=== PATIENT | female | born 1960 | race Caucasian/White ===

== ENCOUNTER 2016-08-21 07:31 | Emergency (ER) | payer OTHER ==
[~2016-08-21] VITALS: Ht 165.1 cm; Wt 53.0 kg
[2016-08-21] VITALS (8 sets, daily range): BP systolic 91–139; BP diastolic 52–82; PULSE 99–111; RESP 18–20; TEMP 98.2; O2SAT 94–99
[~2016-08-21 07:31] MED LIST: PERC5TAB12 PO; Z.0.NO CURRENT MEDS; ZOFR4TAB3 SL
[2016-08-21] MEDS ORDERED: ANAS1TAB PO (07:45)
[2016-08-21] MEDS ORDERED: GABA100C4 PO (07:51)
[2016-08-21] MEDS ORDERED: CYMB30CA PO (07:51)
--- NOTE | 2016-08-21 07:59 | PD ---
HPI Chief Complaint: Fall Time Seen by Provider: 07:50 Travel History International Travel<30 days: No Contact w/Intl Traveler<30days: No Traveled to known affect area: No History of Present Illness HPI This is a 56-year-old female who has a history of breast cancer currently in remission on Arimidex who presents to the emergency department having woken up in the middle of the night and walked to the bathroom when she felt lightheaded and dizzy and noticed everything go black. She passed out and she hit the back of her head. Currently she is reporting a moderate severity headache, constant , worse with movement, with no associated chest pain or shortness of breath. She says she feels dizzy almost every morning and she attributes it to her medications. She says she usually gets nauseous in the morning and she sometimes feels lightheadedness and her has to help her balance. Her says she's had a very difficult time recovering from her surgery which was in the fall and then her long course of radiation. She denies any recent illness and denies any loss of her bowels or bladder at the time of her passing out. [facility] Past Medical History Hypertension: Yes Respiratory: Yes (DIAGNOSED WITH BRONCHITITSIN 12/30) Tetanus Vaccination: < 5 Years Influenza Vaccination: Yes ?: Unknown Menopausal: No Miscarriage: 0 Past Surgical History Cholecystectomy: Yes Hysterectomy: Yes Tonsillectomy: Yes Social History Alcohol Use: Yes (VERY RARE SOCIAL DRINK) Tobacco Use: No Substance Use: No Allergies-Medications (Allergen,Severity, Reaction): Coded Allergies: Codeine (Verified Allergy, Intermediate, Itching, 08/21/16) Erythromycin (Verified Allergy, Intermediate, Itching, 08/21/16) Penicillin (Verified Allergy, Intermediate, HIVES, 08/21/16) Epinephrine (Verified Allergy, Mild, Seizures, 08/21/16) Reported Meds & Prescriptions Reported Meds & Active Scripts Active Reported Cymbalta DR (Duloxetine HCl) 30 Mg Capdr 30 Mg PO DAILY Gabapentin 100 Mg Cap 300 Mg PO HS Anastrozole 1 Mg Tab 1 Mg PO DAILY Review of Systems Except as stated in HPI: all other systems reviewed are Neg Physical Exam Narrative GENERAL:Well appearing, no acute distress SKIN: HEAD: Hematoma on the posterior occiput with some dried blood. EYES: Pupils equal and round. No injection or drainage. ENT: Moist mucous membranes NECK: Trachea midline. Midline cervical spine tenderness. CARDIOVASCULAR: Regular rate and rhythm. No murmur appreciated. RESPIRATORY: Clear to auscultation. Breath sounds equal bilaterally. GASTROINTESTINAL: Abdomen soft, non-tender, nondistended. MUSCULOSKELETAL: No obvious deformities. NEUROLOGICAL: Awake and alert. No obvious cranial nerve deficits. Moving all extremities. PSYCHIATRIC: Appropriate mood and affect; insight and judgment normal. Data Data Last Documented VS Vital Signs Date Time Temp Pulse Resp B/P Pulse Ox O2 Delivery O2 Flow Rate FiO2 08/21/16 11:33 109 20 116/64 98 Room Air 08/21/16 07:34 98.2 Orders Complete Blood Count With Diff (08/21/16 07:56) Comprehensive Metabolic Panel (08/21/16 07:56) D-Dimer (08/21/16 07:56) Ct Brain W/O Iv Contrast(Rout) (08/21/16 ) Ct Cerv Spine W/O Contrast (08/21/16 ) Sodium Chlor 0.9% 1000 Ml Inj (Ns 1000 M (08/21/16 08:00) Electrocardiogram (08/21/16 ) Acetaminophen (Tylenol) (08/21/16 08:15) Lidocai-Epi 1%-1:100,000 Inj (Xylocaine- (08/21/16 09:27) Morphine Inj (Morphine Inj) (08/21/16 09:45) Sodium Chlor 0.9% 1000 Ml Inj (Ns 1000 M (08/21/16 10:00) Mri Brain W&W/O Contrast (08/21/16 ) Meclizine (Antivert) (08/21/16 13:00) Labs Laboratory Tests Test 08/21/16 08:00 White Blood Count 6.0 TH/MM3 Red Blood Count 3.54 MIL/MM3 Hemoglobin 13.3 GM/DL Hematocrit 38.1 % Mean Corpuscular Volume 107.7 FL Mean Corpuscular Hemoglobin 37.6 PG Mean Corpuscular Hemoglobin 34.9 % Concent Red Cell Distribution Width 16.8 % Platelet Count 215 TH/MM3 Mean Platelet Volume 7.2 FL Neutrophils (%) (Auto) 62.0 % Lymphocytes (%) (Auto) 23.1 % Monocytes (%) (Auto) 11.9 % Eosinophils (%) (Auto) 2.0 % Basophils (%) (Auto) 1.0 % Neutrophils # (Auto) 3.7 TH/MM3 Lymphocytes # (Auto) 1.4 TH/MM3 Monocytes # (Auto) 0.7 TH/MM3 Eosinophils # (Auto) 0.1 TH/MM3 Basophils # (Auto) 0.1 TH/MM3 CBC Comment DIFF FINAL Differential Comment D-Dimer Quantitative (PE/DVT) 0.36 MG/L FEU Sodium Level 139 MEQ/L Potassium Level 3.7 MEQ/L Chloride Level 98 MEQ/L Carbon Dioxide Level 27.6 MEQ/L Anion Gap 13 MEQ/L Blood Urea Nitrogen 9 MG/DL Creatinine 0.64 MG/DL Estimat Glomerular Filtration 97 ML/MIN Rate Random Glucose 82 MG/DL Calcium Level 8.9 MG/DL Total Bilirubin 0.5 MG/DL Aspartate Amino Transf 103 U/L (AST/SGOT) Alanine Aminotransferase 30 U/L (ALT/SGPT) Alkaline Phosphatase 113 U/L Total Protein 7.5 GM/DL Albumin 4.0 GM/DL MDM Medical Decision Making Medical Screen Exam Complete: Yes Emergency Medical Condition: Yes Interpretation(s) afebrile, tachycardic, normotensive no leukocytosis electrolytes within normal limits d-dimer negative mri brain is normal ct head: no acute process Differential Diagnosis Subdural hematoma, subarachnoid hemorrhage, tumor, vertigo, concussion Narrative Course This is a 56-year-old female who presents to the emergency department having passed out and had a fall this morning when she woke up from sleep. She does have a history of breast cancer currently in remission. She was placed on a monitor and an IV was established. Labs were obtained which were reassuring. EKG is unremarkable. CT was negative for intracranial hemorrhage. Patient did have a scalp laceration that was repaired by the nurse practitioner. She was given 2 L of IV fluid as she appeared dehydrated and did lose some blood from her scalp laceration. I reevaluated the patient and noted that she had some horizontal nystagmus which I hadn't appreciated earlier and she said she was feeling very dizzy. In the setting of this I offered the family observation in the hospital to have a more rigorous syncope evaluation, but they declined. I did say wanted to get an MRI to rule out brain metastases which they were amenable to. MRI was reassuring. I suspect the patient's etiology of vertigo is peripheral in nature and could be related to her concussion. I think patient is safe for discharge to follow up with her oncologist. Diagnosis Primary Impression: Concussion Qualified Code: S06.0X9A - Concussion, with LOC of unspecified duration, initial encounter Additional Impression: Scalp laceration Qualified Code: S01.01XA - Scalp laceration, initial encounter Patient Instructions: General Instructions Additional Instructions: If you develop fevers, redness, swelling, or discharge from your wound return to the emergency room. Keep your wound dry for 24 hours. After that time, wash gently with warm soap and water. Do not use peroxide. Do not soak in baths or go swimming. Have your sutures removed in 5-7 days. Med/Other Pt SpecificInfo: No Change to Meds Disposition: 01 DISCHARGE HOME Condition: Stable Bonnie Almanza MD August 21, 2016 07:59
[2016-08-21] MEDS ORDERED: SODIUM CHLOR 0.9% 1000 ML INJ 1,000 ML IV ONE (08:00)
[2016-08-21 08:12] LABS: AUTOMATED NEUTROPHIL # 3.7 TH/MM3 (1.8-7.7); BASOPHIL # 0.1 TH/MM3 (0-0.2); EOSINOPHIL # 0.1 TH/MM3 (0-0.4); HEMATOCRIT 38.1 % (35.0-46.0); HEMO FLAGS DIFF FINAL; LYMPH % 23.1 % (9.0-44.0); LYMPHOCYTE # 1.4 TH/MM3 (1.0-4.8); MEAN CELL VOLUME 107.7 FL (80.0-100.0); MEAN CORPUSCULAR HEMOGLOBIN 37.6 PG (27.0-34.0); MEAN CORPUSCULAR HGB CONC 34.9 % (32.0-36.0); MONO % 11.9 % (0.0-8.0); PLATELET COUNT 215 TH/MM3 (150-450); RED BLOOD COUNT 3.54 MIL/MM3 (4.00-5.30); RED CELL DISTRIBUTION WIDTH 16.8 % (11.6-17.2)
[2016-08-21] MEDS ORDERED: ACETAMINOPHEN 500 MG CPLT PO ONE (08:15)
[2016-08-21 08:34] LABS: ALT (GPT) 30 U/L (10-53); ANION GAP 13 MEQ/L (5-15); AST (GOT) 103 U/L (15-37); BICARBONATE 27.6 MEQ/L (21.0-32.0); BLOOD UREA NITROGEN 9 MG/DL (7-18); CHLORIDE 98 MEQ/L (98-107); GLOMERULAR FILTRATION RATE 97 ML/MIN (>89); POTASSIUM 3.7 MEQ/L (3.5-5.1); SODIUM (NA) 139 MEQ/L (136-145)
[2016-08-21 08:36] LABS: ALKALINE PHOSPHATASE 113 U/L (45-117); TOTAL BILIRUBIN ADULT 0.5 MG/DL (0.2-1.0)
--- NOTE | 2016-08-21 08:48 | RADRPT ---
EXAM DATE/TIME: 08/21/2016 08:35 [facility] COMPARISON: No previous studies available for comparison. INDICATIONS : Fall backwards last night, cephalgia and neck pain. RADIATION DOSE: 26.92 CTDIvol (mGy) MEDICAL HISTORY : Carcinoma, breast. Hypertension. SURGICAL HISTORY : Hysterectomy. Tonsillectomy. ENCOUNTER: Initial ACUITY: 1 day PAIN SCALE: 7/10 LOCATION: Bilateral occipital head TECHNIQUE: Multiple contiguous axial images were obtained of the head. Using automated exposure control and adj ustment of the mA and/or kV according to patient size, radiation dose was kept as low as reasonably a chievable to obtain optimal diagnostic quality images. FINDINGS: CEREBRUM: There is moderate generalized atrophy. Ventricles are normal in size. No evidence of midline shift, mass lesion, hemorrhage or acute infarction. No extra-axial fluid collections are seen. POSTERIOR FOSSA: The cerebellum and brainstem are intact. The 4th ventricle is midline. The cerebellopontine angle i s unremarkable. EXTRACRANIAL: There is a left posterior parietal region scalp hematoma at the high convexity. SKULL: The calvaria is intact. No evidence of skull fracture. CONCLUSION: There is a left posterior scalp hematoma. No fracture or acute intracranial abnormality is identified . Daniel Garcia MD on August 21, 2016 at 8:44 Board Certified Radiologist. This report was verified electronically.
--- NOTE | 2016-08-21 08:56 | RADRPT ---
EXAM DATE/TIME: 08/21/2016 08:35 [facility] COMPARISON: No previous studies available for comparison. INDICATIONS : Fall backwards last night, cephalgia and neck pain. RADIATION DOSE: 9.20 CTDIvol (mGy) MEDICAL HISTORY : Carcinoma, breast. Hypertension. SURGICAL HISTORY : Hysterectomy. Tonsillectomy. ENCOUNTER: Initial ACUITY: 1 day PAIN SCALE: 7/10 LOCATION: Bilateral neck TECHNIQUE: Volumetric scanning of the cervical spine was performed. Multiplanar reconstructions in the sagittal, coronal and oblique axial planes were performed. Using automated exposure control and adjustment o f the mA and/or kV according to patient size, radiation dose was kept as low as reasonably achievable to obtain optimal diagnostic quality images. FINDINGS: There is normal sagittal spine alignment of the cervical spine. No anterolisthesis or retrolisthesis is present. The atlantoaxial relationship is within normal limits. There is no prevertebral soft tiss ue swelling present. No fracture or dislocation is identified. There is marked cervical kyphosis. Deg enerative disc disease is present at C5-C6 and C6-C7 with decreased disc height and endplate osteophy blaire anteriorly. The visualized portions of the posterior fossa, paraspinous soft tissues, and upper lung zones demons trate no acute abnormality. CONCLUSION: 1. No acute cervical spine abnormality is identified. 2. Accentuated cervical kyphosis with degenerative disc disease at C5-C6 and C6-C7. Daniel Garcia MD on August 21, 2016 at 8:51 Board Certified Radiologist. This report was verified electronically.
[2016-08-21] MEDS ORDERED: LIDOCAINE 1%/EPINEPHrine 1:100,000 SOLN 50 ML VIAL ONE (09:27)
[2016-08-21] MEDS ORDERED: MORPHINE SULFATE 4 MG/ML INJ IV PUSH ONE (09:45)
--- NOTE | 2016-08-21 09:48 | PD ---
Physical Exam Time Seen by Provider: 10:19 Narrative I repaired the laceration to the posterior scalp. Data Data Last Documented VS Vital Signs Date Time Temp Pulse Resp B/P Pulse Ox O2 Delivery O2 Flow Rate FiO2 08/21/16 10:11 106 97/52 99 Room Air 08/21/16 07:58 20 08/21/16 07:34 98.2 Orders Complete Blood Count With Diff (08/21/16 07:56) Comprehensive Metabolic Panel (08/21/16 07:56) D-Dimer (08/21/16 07:56) Ct Brain W/O Iv Contrast(Rout) (08/21/16 ) Ct Cerv Spine W/O Contrast (08/21/16 ) Sodium Chlor 0.9% 1000 Ml Inj (Ns 1000 M (08/21/16 08:00) Electrocardiogram (08/21/16 ) Acetaminophen (Tylenol) (08/21/16 08:15) Lidocai-Epi 1%-1:100,000 Inj (Xylocaine- (08/21/16 09:27) Morphine Inj (Morphine Inj) (08/21/16 09:45) Sodium Chlor 0.9% 1000 Ml Inj (Ns 1000 M (08/21/16 10:00) Labs Laboratory Tests Test 08/21/16 08:00 White Blood Count 6.0 TH/MM3 Red Blood Count 3.54 MIL/MM3 Hemoglobin 13.3 GM/DL Hematocrit 38.1 % Mean Corpuscular Volume 107.7 FL Mean Corpuscular Hemoglobin 37.6 PG Mean Corpuscular Hemoglobin 34.9 % Concent Red Cell Distribution Width 16.8 % Platelet Count 215 TH/MM3 Mean Platelet Volume 7.2 FL Neutrophils (%) (Auto) 62.0 % Lymphocytes (%) (Auto) 23.1 % Monocytes (%) (Auto) 11.9 % Eosinophils (%) (Auto) 2.0 % Basophils (%) (Auto) 1.0 % Neutrophils # (Auto) 3.7 TH/MM3 Lymphocytes # (Auto) 1.4 TH/MM3 Monocytes # (Auto) 0.7 TH/MM3 Eosinophils # (Auto) 0.1 TH/MM3 Basophils # (Auto) 0.1 TH/MM3 CBC Comment DIFF FINAL Differential Comment D-Dimer Quantitative (PE/DVT) 0.36 MG/L FEU Sodium Level 139 MEQ/L Potassium Level 3.7 MEQ/L Chloride Level 98 MEQ/L Carbon Dioxide Level 27.6 MEQ/L Anion Gap 13 MEQ/L Blood Urea Nitrogen 9 MG/DL Creatinine 0.64 MG/DL Estimat Glomerular Filtration 97 ML/MIN Rate Random Glucose 82 MG/DL Calcium Level 8.9 MG/DL Total Bilirubin 0.5 MG/DL Aspartate Amino Transf 103 U/L (AST/SGOT) Alanine Aminotransferase 30 U/L (ALT/SGPT) Alkaline Phosphatase 113 U/L Total Protein 7.5 GM/DL Albumin 4.0 GM/DL [facility] Supervised Visit with REINA: Yes Narrative Course I repaired the laceration to the posterior scalp. See my procedure note for laceration repair. Procedures Procedure Narrative LACERATION LOCATION: Left, mid posterior scalp LENGTH: 2.5 cm NUMBER OF STITCHES/AYALA: 7 sutures REPAIR: The area of the laceration was prepped with Betadine and sterilely draped. The laceration was infiltrated with 1% lidocaine with epinephrine. The wound was copiously irrigated and explored without evidence of foreign body, tendon injury or neurovascular injury. The wound was closed using 4-0 Prolene. This was a single layer repair. A sterile dressing was applied. The patient was advised to keep the dressing clean and dry. Patient tolerated the procedure well. Idalia Panda August 21, 2016 09:48
[2016-08-21] MEDS ORDERED: SODIUM CHLOR 0.9% 1000 ML INJ 1,000 ML IV SCH (10:00)
[2016-08-21] MEDS ORDERED: GADODIAMIDE PF 287 MG/ML 10 ML VIAL (for RAD MRI) IV ONE (12:12)
--- NOTE | 2016-08-21 12:47 | RADRPT ---
EXAM DATE/TIME: 08/21/2016 12:12 [facility] COMPARISON: CT BRAIN W/O CONTRAST, August 21, 2016, 8:35. INDICATIONS : Metastatic disease. Dizziness, fall, head trauma. CONTRAST: 10 cc Omniscan (gadodiamide) IV MEDICAL HISTORY : Carcinoma, breast. SURGICAL HISTORY : Hysterectomy. Cholecystectomy. Breast lumpectomy. ENCOUNTER: Initial ACUITY: 1 day PAIN SCORE: 0/10 LOCATION: cranial TECHNIQUE: Multiplanar, multisequence MRI of the brain was performed both prior to and following the administrat ion of paramagnetic contrast. FINDINGS: CEREBRUM: There is mild cerebral atrophy. Ventricles are normal in size. No evidence of midline shift, mass le gulshan, hemorrhage or acute infarction. No extraaxial fluid collections are seen. The pituitary gland and suprasellar cistern are normal in configuration. WHITE MATTER: No significant signal abnormalities are seen in the white matter. POSTERIOR FOSSA: The cerebellum and brainstem demonstrate no acute finding. The 4th ventricle is midline. The cerebel lopontine angle is unremarkable. The cerebellar tonsils are normal in position. DIFFUSION IMAGING: No focal areas of restricted diffusion are seen. No evidence of acute infarction. EXTRACRANIAL: There is a stable left posterior scalp hematoma. Otherwise, the visualized portions of the orbits and paranasal sinuses are unremarkable. POST-CONTRAST: No abnormal areas of parenchymal or dural enhancement. No evidence of blood-brain barrier breakdown. CONCLUSION: 1. There are no findings to indicate metastatic disease. No acute intracranial abnormality is seen. 2. There is a left posterior scalp hematoma. Daniel Garcia MD on August 21, 2016 at 12:42 Board Certified Radiologist. This report was verified electronically.
[2016-08-21] MEDS ORDERED: MECLIZINE HCL 25 MG TAB PO ONE (13:00)
[2016-08-21] MEDS ORDERED: MECL-62 PO (13:08)
[2016-08-21] MEDS ORDERED: NAPR500T PO (13:08)
[2016-08-21] MEDS ORDERED: NAPROXEN 500 MG TAB PO ONE (13:15)
--- NOTE | 2016-08-21 15:02 | EKG ---
Date Performed: 08/21/2016 Time Performed: 08:01:56 PTAGE: 56 years EKG: Sinus rhythm NORMAL ECG NO PREVIOUS TRACING DOCTOR: Rigo De La Cruz Interpretating Date/Time 08/21/2016 15:00:10
== END 2016-08-21 13:59 | disposition home or self-care (01) ==
LOC: NEPC 07:31
DX: S06.0X9A Concussion with loss of consciousness of unspecified duration, initial encounter (principal); S01.01XA Laceration without foreign body of scalp, initial encounter; I10 Essential (primary) hypertension; X58.XXXA Exposure to other specified factors, initial encounter; Y93.01 Activity, walking, marching and hiking; Y92.002 Bathroom of unspecified non-institutional (private) residence as the place of occurrence of the external cause; Z85.3 Personal history of malignant neoplasm of breast
CPT/HCPCS: 12001; 70450; 70553; 72125; 80053; 85025; 85379; 93005; 96361; 96374; 99285; A9579; J2270; J7030

== ENCOUNTER 2017-04-27 11:37 | Observation (INO) | payer OTHER ==
[2017-04-27] VITALS (7 sets, daily range): BP systolic 116–140; BP diastolic 67–79; PULSE 92–101; RESP 14–18; TEMP 98.6–100; O2SAT 96–100
[~2017-04-27] VITALS: Ht 157.5 cm; Wt 48.0 kg
[~2017-04-27 11:37] MED LIST changes: +ANAS1TAB PO; +CYMB30CA PO; +GABA100C4 PO; +MECL-62 PO; +NAPR500T2 PO; -PERC5TAB12 PO; -Z.0.NO CURRENT MEDS; -ZOFR4TAB3 SL
[2017-04-27] MEDS ORDERED: SODIUM CHLOR 0.9% 1000 ML INJ 1,000 ML IV ONE (12:08)
[2017-04-27] MEDS ORDERED: SOD PHOSPHATE/SOD BIPHOSPHATE (ADULT) ENEMA 133ML RECTAL ONE (12:15)
[2017-04-27] MEDS ORDERED: ONDANSETRON HCL 4 MG/2 ML VIAL IV PUSH ONE (12:15)
[2017-04-27] MEDS ORDERED: SODIUM CHLORIDE 0.9% FLUSH 10 ML FLUSH IVF PRN (12:15)
[2017-04-27] MEDS ORDERED: PANTOPRAZOLE SODIUM 40 MG VIAL IV PUSH ONE (12:15)
--- NOTE | 2017-04-27 12:18 | PD ---
HPI Chief Complaint: GI Complaint Time Seen by Provider: 12:08 Travel History International Travel<30 days: No Contact w/Intl Traveler<30days: No Traveled to known affect area: No History of Present Illness HPI 57-year-old female with a history of breast cancer presents emergency department complaining of hematemesis that started this morning. States that she went to her primary care office Dr. Dawson where he gave her Phenergan and tested for flu which was negative. States that she felt nauseous yesterday and had trouble tolerating any foods. Says she took stool softeners and laxative without resolution. She took magnesium citrate, vomited then started seeing some bloody mucus. States her last bowel movement was 9 days ago which is unusual for her. States that she has had an episode of constipation previously but usually resolved in 4-5 days. States that she did have 2 ' pellet balls' yesterday but did not feel she completely emptied her bowels. States she does take narcotic pain medications. States she is currently taking Arimidex and has had 37 treatments of radiation and chemo for her breast cancer. She follows Dr. Garrett for her oncology. States she does have right breast pain but this is not new for her. Denies shortness of breath or abdominal pain. Denies leg pain. She is unsure but she believes she takes ibuprofen 800mg daily for pain. Says that she has tried to cut down on her alcohol intake and drinks approximately 1-2 glasses every other day. PFSH Past Medical History Hypertension: Yes Respiratory: Yes (DIAGNOSED WITH BRONCHITITSIN 12/30) Menopausal: No Miscarriage: 0 Past Surgical History Cholecystectomy: Yes Hysterectomy: Yes Tonsillectomy: Yes Social History Alcohol Use: Yes (VERY RARE SOCIAL DRINK) Tobacco Use: No Substance Use: No Allergies-Medications (Allergen,Severity, Reaction): Coded Allergies: codeine (Unverified Allergy, Intermediate, Itching, 04/27/17) erythromycin base (Unverified Allergy, Intermediate, Itching, 04/27/17) penicillin G (Unverified Allergy, Intermediate, HIVES, 04/27/17) epinephrine (Unverified Allergy, Mild, Seizures, 04/27/17) Reported Meds & Prescriptions Reported Meds & Active Scripts Active Reported Gabapentin 100 Mg Cap 300 Mg PO HS Anastrozole 1 Mg Tab 1 Mg PO DAILY Review of Systems Except as stated in HPI: all other systems reviewed are Neg Physical Exam Narrative GENERAL: Well-developed well-nourished in no apparent distress, sitting comfortably on the edge of the bed SKIN: Warm and dry. No rashes or lesions HEAD: Atraumatic. Normocephalic. EYES: Pupils equal and round. No scleral icterus. No injection or drainage. ENT: No nasal bleeding or discharge. Mucous membranes pink and moist. NECK: Trachea midline. No JVD. No lymphadenopathy CARDIOVASCULAR: Regular rate and rhythm. RESPIRATORY: No accessory muscle use. Clear to auscultation. Breath sounds equal bilaterally. GASTROINTESTINAL: Abdomen soft, mildly tender diffusely, nondistended. Hepatic and splenic margins not palpable. Normoactive bowel sounds MUSCULOSKELETAL: Extremities without clubbing, cyanosis, or edema. No obvious deformities. No CVA tenderness NEUROLOGICAL: Awake and alert. No obvious cranial nerve deficits. Motor grossly within normal limits. Five out of 5 muscle strength in the arms and legs. Normal speech. PSYCHIATRIC: Appropriate mood and affect; insight and judgment normal. Data Data Last Documented VS Vital Signs Date Time Temp Pulse Resp B/P (MAP) Pulse Ox O2 Delivery O2 Flow Rate FiO2 04/27/17 12:41 94 18 125/74 (91) 100 Room Air 04/27/17 11:39 98.6 Orders Orders Complete Blood Count With Diff (04/27/17 12:08) Comprehensive Metabolic Panel (04/27/17 12:08) Urinalysis - C+S If Indicated (04/27/17 12:08) Lipase (04/27/17 12:08) Iv Access Insert/Monitor (04/27/17 12:08) Ecg Monitoring (04/27/17 12:08) Oximetry (04/27/17 12:08) Ondansetron Inj (Zofran Inj) (04/27/17 12:15) Sodium Chlor 0.9% 1000 Ml Inj (Ns 1000 M (04/27/17 12:08) Sodium Chloride 0.9% Flush (Ns Flush) (04/27/17 12:15) Chest, Single Ap (04/27/17 12:08) Pantoprazole Inj (Protonix Inj) (04/27/17 12:15) Fleets Enema (Adult) (Fleets Enema (Adul (04/27/17 12:15) Urine Culture (04/27/17 12:25) Oral Rehydration (04/27/17 14:08) Ceftriaxone Inj (Rocephin Inj) (04/27/17 14:45) Admit Order (Ed Use Only) (04/27/17 14:37) Labs Laboratory Tests Test 04/27/17 12:25 04/27/17 12:35 Urine Color YELLOW Urine Turbidity HAZY Urine pH 6.0 Urine Specific [place] 1.024 Urine Protein 100 mg/dL Urine Glucose (UA) NEG mg/dL Urine Ketones 150 mg/dL Urine Occult Blood LARGE Urine Nitrite NEG Urine Bilirubin NEG Urine Urobilinogen LESS THAN 2.0 MG/DL Urine Leukocyte Esterase MOD Urine RBC 76 /hpf Urine WBC 10 /hpf Urine Squamous Epithelial Cells 2 /hpf Urine Transitional Epithelial Cells <1 /hpf Urine Hyaline Casts 4 /lpf Urine Mucus FEW /lpf Microscopic Urinalysis Comment CULTURE INDICATED Urine Opiates Screen NEG Urine Barbiturates Screen NEG Urine Amphetamines Screen NEG Urine Benzodiazepines Screen NEG Urine Cocaine Screen NEG Urine Cannabinoids Screen NEG White Blood Count 5.3 TH/MM3 Red Blood Count 3.72 MIL/MM3 Hemoglobin 14.0 GM/DL Hematocrit 39.7 % Mean Corpuscular Volume 106.7 FL Mean Corpuscular Hemoglobin 37.6 PG Mean Corpuscular Hemoglobin Concent 35.2 % Red Cell Distribution Width 15.4 % Platelet Count 189 TH/MM3 Mean Platelet Volume 7.7 FL Neutrophils (%) (Auto) 70.6 % Lymphocytes (%) (Auto) 16.3 % Monocytes (%) (Auto) 10.6 % Eosinophils (%) (Auto) 0.3 % Basophils (%) (Auto) 2.2 % Neutrophils # (Auto) 3.8 TH/MM3 Lymphocytes # (Auto) 0.9 TH/MM3 Monocytes # (Auto) 0.6 TH/MM3 Eosinophils # (Auto) 0.0 TH/MM3 Basophils # (Auto) 0.1 TH/MM3 CBC Comment DIFF FINAL Differential Comment Blood Urea Nitrogen 13 MG/DL Creatinine 0.62 MG/DL Random Glucose 67 MG/DL Total Protein 7.4 GM/DL Albumin 3.5 GM/DL Calcium Level 8.9 MG/DL Alkaline Phosphatase 189 U/L Aspartate Amino Transf (AST/SGOT) 418 U/L Alanine Aminotransferase (ALT/SGPT) 109 U/L Total Bilirubin 1.0 MG/DL Sodium Level 137 MEQ/L Potassium Level 3.9 MEQ/L Chloride Level 95 MEQ/L Carbon Dioxide Level 21.7 MEQ/L Anion Gap 20 MEQ/L Estimat Glomerular Filtration Rate 100 ML/MIN Magnesium Level 1.7 MG/DL Lipase 139 U/L Ethyl Alcohol Level 94 MG/DL MDM Medical Decision Making Medical Screen Exam Complete: Yes Emergency Medical Condition: Yes Differential Diagnosis Hematemesis, constipation, nausea Narrative Course 57-year-old female with a history of breast cancer presents emergency department complaining of hematemesis that started this morning. States that she went to her primary care office Dr. Dawson where he gave her Phenergan and tested for flu which was negative. States that she felt nauseous yesterday and had trouble tolerating any foods. Says she took stool softeners and laxative without resolution. She took magnesium citrate, vomited then started seeing some bloody tinged mucus. States her last bowel movement was 9 days ago which is unusual for her. States that she has had an episode of constipation previously but usually resolved in 4-5 days. States that she did have 2 ' pellet balls' yesterday but did not feel she completely emptied her bowels. States she does take narcotic pain medications. States she is currently taking Arimidex and has had 37 treatments of radiation and chemo for her breast cancer. She follows Dr. Garrett for her oncology. States she does have right breast pain but this is not new for her. Denies shortness of breath or abdominal pain. Denies leg pain. She is unsure but she believes she takes ibuprofen 800mg daily for pain. Says that she has tried to cut down on her alcohol intake and drinks approximately 1-2 glasses of wine every other day. Protonix 40mg, 1L NS IVF, Zofran administered in the ED. Enema performed by pt- minimal stool expressed. Again, patient took over the counter laxatives and stool softeners without resolution. States she continues to be nauseous despite interventions. Elevated LFTs- questionable alcohol history. CBC & BMP Diagram 04/27/17 12:35 Total Protein 7.4, Albumin 3.5, Calcium Level 8.9, Alkaline Phosphatase 189 H, Aspartate Amino Transf (AST/SGOT) 418 H, Alanine Aminotransferase (ALT/SGPT) 109 H, Total Bilirubin 1.0 Last Impressions Chest X-Ray 04/27/17 1208 Signed Impressions: Service Date/Time: April 12:18 - CONCLUSION: No acute abnormality is seen. Daniel Mcmanus MD Rocephin 1g administered for UTI. Pt will be administered for intractable nausea with vomiting, consider Laura Randall tear, constipation, UTI. Diagnosis Primary Impression: Constipation due to pain medication Additional Impressions: UTI (urinary tract infection) Qualified Codes: N30.00 - Acute cystitis without hematuria Hematemesis Qualified Codes: K92.0 - Hematemesis Nausea & vomiting Qualified Codes: R11.2 - Nausea with vomiting, unspecified Admitting Information Admitting Physician Requests: Observation Referrals: Primary Care Physician Condition: Stable Yaima Freeman Apr 27, 2017 12:18
[2017-04-27 13:05] LABS: AUTOMATED NEUTROPHIL # 3.8 TH/MM3 (1.8-7.7); BASOPHIL # 0.1 TH/MM3 (0-0.2); BASOPHIL % 2.2 % (0.0-2.0); EOSINOPHIL % 0.3 % (0.0-4.0); HEMATOCRIT 39.7 % (35.0-46.0); LYMPH % 16.3 % (9.0-44.0); LYMPHOCYTE # 0.9 TH/MM3 (1.0-4.8); MEAN CELL VOLUME 106.7 FL (80.0-100.0); MEAN CORPUSCULAR HEMOGLOBIN 37.6 PG (27.0-34.0); MEAN CORPUSCULAR HGB CONC 35.2 % (32.0-36.0); MEAN PLATELET VOLUME 7.7 FL (7.0-11.0); MONO % 10.6 % (0.0-8.0); MONOCYTE # 0.6 TH/MM3 (0-0.9); NEUT % 70.6 % (16.0-70.0); PLATELET COUNT 189 TH/MM3 (150-450); RED BLOOD COUNT 3.72 MIL/MM3 (4.00-5.30); RED CELL DISTRIBUTION WIDTH 15.4 % (11.6-17.2); WHITE BLOOD COUNT 5.3 TH/MM3 (4.0-11.0)
--- NOTE | 2017-04-27 13:09 | RADRPT ---
EXAM DATE/TIME: 04/27/2017 12:18 [facility] COMPARISON: No previous studies available for comparison. INDICATIONS : Vomiting blood, no bowel movement x9 days, generalized abdomen pain. MEDICAL HISTORY : Carcinoma, breast. SURGICAL HISTORY : Right breast lumpectomy. ENCOUNTER: Initial ACUITY: 1 week PAIN SCORE: 9/10 LOCATION: Bilateral chest FINDINGS: A single view of the chest demonstrates the lungs to be symmetrically aerated without evidence of mas s, infiltrate or effusion. The cardiomediastinal contours are unremarkable. Osseous structures are intact. Clips are seen over the lower right chest and in the right upper quadrant the abdomen. There is postoperative soft tissue changes seen in the right chest. The patient has had a prior right lumpe ctomy. CONCLUSION: No acute abnormality is seen. Daniel Mcmanus MD on April 27, 2017 at 13:05 Board Certified Radiologist. This report was verified electronically.
[2017-04-27 13:15] LABS: BILIRUBIN, URINE NEG (NEG); BLOOD, URINE LARGE (NEG); GLUCOSE,URINE NEG (NEG); HYALINE CAST, URINE 4 /lpf (RARE); KETONE, URINE 150 mg/dL (NEG); MUCUS URINE FEW /lpf (OCC); NITRITE,URINE NEG (NEG); SQUAMOUS EPITHELIAL CELL URINE 2 /hpf (0-5); TRANSITIONAL EPI CELLS, URINE <1 /hpf; URINE COLOR YELLOW (YELLW/STRAW); URINE LEUKOCYTE ESTERASE MOD (NEG)
[2017-04-27 13:29] LABS: ALBUMIN 3.5 GM/DL (3.4-5.0); AST (GOT) 418 U/L (15-37); BICARBONATE 21.7 MEQ/L (21.0-32.0); BLOOD UREA NITROGEN 13 MG/DL (7-18); CALCIUM 8.9 MG/DL (8.5-10.1); CHLORIDE 95 MEQ/L (98-107); CREATININE 0.62 MG/DL (0.50-1.00); GLOMERULAR FILTRATION RATE 100 ML/MIN (>89); GLUCOSE,RANDOM 67 MG/DL (74-106); SODIUM (NA) 137 MEQ/L (136-145)
[2017-04-27 13:33] LABS: ALKALINE PHOSPHATASE 189 U/L (45-117); ALT (GPT) 109 U/L (10-53); TOTAL PROTEIN 7.4 GM/DL (6.4-8.2)
[2017-04-27] MEDS ORDERED: PROT40TA PO (14:16)
[2017-04-27] MEDS ORDERED: MACR100C2 PO (14:16)
[2017-04-27] MEDS ORDERED: ZOFR4TAB3 SL (14:16)
[2017-04-27] MEDS ORDERED: MAGNESIUM HYDROXIDE SUSP 30 ML CUP PO PRN (14:45)
[2017-04-27] MEDS ORDERED: LACTULOSE SYRUP 20 GM/30 ML CUP PO PRN (14:45)
[2017-04-27] MEDS ORDERED: BISACODYL 10 MG SUPP RECTAL PRN (14:45)
[2017-04-27] MEDS ORDERED: ACETAMINOPHEN 325 MG TAB PO PRN (14:45)
[2017-04-27] MEDS ORDERED: ONDANSETRON HCL 4 MG/2 ML VIAL IVP PRN (14:45)
[2017-04-27] MEDS ORDERED: HALOPERIDOL LACTATE 5 MG/ML AMP IM PRN (14:45)
[2017-04-27] MEDS ORDERED: LORazepam 2 MG TAB PO PRN (14:45)
[2017-04-27] MEDS ORDERED: TEMAZEPAM 15 MG CAP PO PRN (14:45)
[2017-04-27] MEDS ORDERED: SODIUM CHLORIDE 0.9% FLUSH 10 ML FLUSH IV FLUSH PRN (14:45)
[2017-04-27] MEDS ORDERED: FLUMAZENIL 0.5 MG/5 ML VIAL IV PUSH PRN (14:45)
[2017-04-27] MEDS ORDERED: NALOXONE HCL 0.4 MG/ML AMP IV PUSH PRN (14:45)
[2017-04-27] MEDS ORDERED: LORazepam 1 MG TAB PO PRN (14:45)
[2017-04-27] MEDS ORDERED: SENNOSIDES 8.6 MG TAB PO PRN (14:45)
[2017-04-27] MEDS ORDERED: cefTRIAXone INJ 1,000 MG in SODIUM CHLORIDE 0.9% INJ 100 ML IV ONE (14:45)
[2017-04-27] MEDS ORDERED: LORazepam 2 MG/ML VIAL IV PUSH PRN ×4 (14:45)
--- NOTE | 2017-04-27 14:54 | HHI.HP ---
HPI Service [facility] Hospitalists Primary Care Physician Ivana Dawson MD Admission Diagnosis Intract N&V, UTI, Constipation Chief Complaint: - n/v - constipation Travel History International Travel<30 Days: No Contact w/Intl Traveler <30 Da: No Traveled to Known Affected Are: No History of Present Illness Pt is a pleasant 57 y/o F with h/o breast CA who follows with Dr. Nyo Garrett for stage I ER-positive right breast cancer status post surgery with low Oncotype DX. She had radiation. States she is currently taking Arimidex Pt has had difficulty with constipation for 9 days which did NOT resolve despite using stool softeners, laxatives and then magnesium citrate. Pt subsequently developed nausea, bilious vomiting, and decreased appetite. Pt states that she has intermittent difficulties with constipation. She has been recommended daily miralax in the past, but did NOT start this regimen. Pt states that she had 2 hard stools today. Pt drinks 3 alcoholic beverages daily. Pt will be admitted to observation status at [facility] for further evaluation and treatment. Review of Systems Constitutional: DENIES: Diaphoretic episodes, Fatigue, Fever, Weight gain, Weight loss, Chills, Dizziness, Change in appetite, Night Sweats Endocrine: DENIES: Heat/cold intolerance, Polydipsia, Polyuria, Polyphagia Eyes: DENIES: Blurred vision, Diplopia, Eye inflammation, Eye pain, Vision loss , Photosensitivity, Double Vision Ears, nose, mouth, throat: DENIES: Tinnitus, Hearing loss, Vertigo, Nasal discharge, Oral lesions, Throat pain, Hoarseness, Ear Pain, Running Nose, Epistaxis, Sinus Pain, Toothache, Odynophagia Respiratory: DENIES: Apneas, Cough, Snoring, Wheezing, Hemoptysis, Sputum production, Shortness of breath Cardiovascular: DENIES: Chest pain, Palpitations, Syncope, Dyspnea on Exertion , PND, Lower Extremity Edema, Orthopnea, Claudication Gastrointestinal: COMPLAINS OF: Nausea, Vomiting, See HPI, DENIES: Abdominal pain, Black stools, Bloody stools, BRB per rectum, Constipation, Diarrhea, GERD , Reflux, Difficulty Swallowing, Anorexia Genitourinary: DENIES: Urinary frequency, Urinary incontinence, Urgency, Hematuria, Dysuria, Nocturia Musculoskeletal: DENIES: Joint pain, Muscle aches, Stiffness, Joint Swelling, Back pain, Neck pain Integumentary: DENIES: Abnormal pigmentation, Pruritus, Rash, Nail changes, Breast masses, Breast skin changes, Nipple discharge Hematologic/lymphatic: DENIES: Bruising, Lymphadenopathy Immunologic/allergic: DENIES: Eczema, Urticaria Neurologic: DENIES: Abnormal gait, Headache, Localized weakness, Paresthesias, Seizures, Speech Problems, Tremor, Poor Balance Psychiatric: DENIES: Anxiety, Confusion, Mood changes, Depression, Hallucinations, Agitation, Suicidal Ideation, Homicidal Ideation, Delusions, History of Bipolar, History of Schizophrenia Past Family Social History Past Medical History - Anxiety - endometriosis - right breast cancer - abnormal mammogram 11/2015 - right lumpectomy December 2015 - s/p radiation therapy - etoh abuse Past Surgical History Hysterectomy(complete) Tonsillectomy Right breast lumpectomy in 2015 Bilateral breast biopsy in 2015 cholecystectomy Colonoscopy in 2007 Reported Medications Gabapentin 100 Mg Cap 300 Mg PO HS Anastrozole 1 Mg Tab 1 Mg PO DAILY Arimidex 1 Tablet (of 1 mg) Oral daily Ibuprofen 800 mg as needed 1 Q8H Allergies: Coded Allergies: codeine (Unverified Allergy, Intermediate, Itching, 04/27/17) erythromycin base (Unverified Allergy, Intermediate, Itching, 04/27/17) penicillin G (Unverified Allergy, Intermediate, HIVES, 04/27/17) epinephrine (Unverified Allergy, Mild, Seizures, 04/27/17) Family History Non-contributory Social History ETOH use 1 glass of wine per day per patient, per 2-3 glasses of wine per day Denies tobacco use per day Physical Exam Vital Signs Vital Signs Date Time Temp Pulse Resp B/P (MAP) Pulse Ox O2 Delivery O2 Flow Rate FiO2 04/27/17 12:41 94 18 125/74 (91) 100 Room Air 04/27/17 12:28 18 04/27/17 11:39 98.6 98 14 127/78 (94) 98 Physical Exam GENERAL: This is a well-nourished, well-developed patient, in no apparent distress. SKIN: No rashes, ecchymoses or lesions. Cool and dry. HEAD: Atraumatic. Normocephalic. No temporal or scalp tenderness. EYES: Extraocular motions intact. No scleral icterus. No injection or drainage. ENT: Nose without bleeding, purulent drainage or septal hematoma. Throat without erythema, tonsillar hypertrophy or exudate. Uvula midline. Airway patent. NECK: Trachea midline. No JVD or lymphadenopathy. Supple, nontender, no meningeal signs. CARDIOVASCULAR: Regular rate and rhythm without murmurs, gallops, or rubs. RESPIRATORY: Clear to auscultation. Breath sounds equal bilaterally. GASTROINTESTINAL: Abdomen soft, tender LLQ, nondistended. MUSCULOSKELETAL: Extremities without clubbing, cyanosis, or edema. No joint tenderness, effusion, or edema noted. No calf tenderness. Negative Homans sign bilaterally. NEUROLOGICAL: Awake and alert. No focal deficits noted. Motor and sensory grossly within normal limits. Five out of 5 muscle strength in all muscle groups. Normal speech. Laboratory Laboratory Tests Test 04/27/17 12:25 04/27/17 12:35 Urine Color YELLOW Urine Turbidity HAZY Urine pH 6.0 Urine Specific Equality 1.024 Urine Protein 100 Urine Glucose (UA) NEG Urine Ketones 150 Urine Occult Blood LARGE Urine Nitrite NEG Urine Bilirubin NEG Urine Urobilinogen LESS THAN 2.0 Urine Leukocyte Esterase MOD Urine RBC 76 Urine WBC 10 Urine Squamous Epithelial Cells 2 Urine Transitional Epithelial Cells <1 Urine Hyaline Casts 4 Urine Mucus FEW Microscopic Urinalysis Comment CULTURE INDICATED White Blood Count 5.3 Red Blood Count 3.72 Hemoglobin 14.0 Hematocrit 39.7 Mean Corpuscular Volume 106.7 Mean Corpuscular Hemoglobin 37.6 Mean Corpuscular Hemoglobin Concent 35.2 Red Cell Distribution Width 15.4 Platelet Count 189 Mean Platelet Volume 7.7 Neutrophils (%) (Auto) 70.6 Lymphocytes (%) (Auto) 16.3 Monocytes (%) (Auto) 10.6 Eosinophils (%) (Auto) 0.3 Basophils (%) (Auto) 2.2 Neutrophils # (Auto) 3.8 Lymphocytes # (Auto) 0.9 Monocytes # (Auto) 0.6 Eosinophils # (Auto) 0.0 Basophils # (Auto) 0.1 CBC Comment DIFF FINAL Differential Comment Blood Urea Nitrogen 13 Creatinine 0.62 Random Glucose 67 Total Protein 7.4 Albumin 3.5 Calcium Level 8.9 Alkaline Phosphatase 189 Aspartate Amino Transf (AST/SGOT) 418 Alanine Aminotransferase (ALT/SGPT) 109 Total Bilirubin 1.0 Sodium Level 137 Potassium Level 3.9 Chloride Level 95 Carbon Dioxide Level 21.7 Anion Gap 20 Estimat Glomerular Filtration Rate 100 Lipase 139 Date/Time Source Procedure Growth Status 04/27/17 12:25 Urine Clean Catch Urine Culture Pending Received Result Diagram: 04/27/17 1235 04/27/17 1235 Caprini VTE Risk Assessment Caprini VTE Risk Assessment: No/Low Risk (score <= 1) Caprini Risk Assessment Model Point Value = 1 Point Value = 2 Point Value = 3 Point Value = 5 Age 41-60 Minor surgery BMI > 25 kg/m2 Swollen legs Varicose veins or History of unexplained or recurrent spontaneous Oral contraceptives or hormone replacement Sepsis (< 1 month) Serious lung disease, including pneumonia (< 1 month) Abnormal pulmonary function Acute myocardial infarction Congestive heart failure (< 1 month) History of inflammatory bowel disease Medical patient at bed rest Age 61-74 Arthroscopic surgery Major open surgery (> 45 min) Laparoscopic surgery (> 45 min) Malignancy Confined to bed (> 72 hours) Immobilizing plaster cast Central venous access Age >= 75 History of VTE Family history of VTE Factor V Leiden Prothrombin [id number] Lupus anticoagulant Anticardiolipin antibodies Elevated serum homocysteine Heparin-induced thrombocytopenia Other congenital or acquired thrombophilia Stroke (< 1 month) Elective arthroplasty Hip, pelvis, or leg fracture Acute spinal cord injury (< 1 month) Prophylaxis Regimen Total Risk Factor Score Risk Level Prophylaxis Regimen 0-1 Low Early ambulation 2 Moderate Order ONE of the following: *Sequential Compression Device (SCD) *Heparin 5000 units SQ BID 3-4 Higher Order ONE of the following medications: *Heparin 5000 units SQ TID *Enoxaparin/Lovenox 40 mg SQ daily (WT < 150 kg, CrCl > 30 mL/min) *Enoxaparin/Lovenox 30 mg SQ daily (WT < 150 kg, CrCl > 10-29 mL/min) *Enoxaparin/Lovenox 30 mg SQ BID (WT < 150 kg, CrCl > 30 mL/min) AND/OR *Sequential Compression Device (SCD) 5 or more Highest Order ONE of the following medications: *Heparin 5000 units SQ TID (Preferred with Epidurals) *Enoxaparin/Lovenox 40 mg SQ daily (WT < 150 kg, CrCl > 30 mL/min) *Enoxaparin/Lovenox 30 mg SQ daily (WT < 150 kg, CrCl > 10-29 mL/min) *Enoxaparin/Lovenox 30 mg SQ BID (WT < 150 kg, CrCl > 30 mL/min) AND *Sequential Compression Device (SCD) Assessment and Plan Problem List: (1) Nausea & vomiting ICD Codes: R11.2 - Nausea with vomiting, unspecified Status: Acute Plan: - dehydration on clinical basis - IVFs - zofran prn - treat constipation - repeat BMP/Mag in AM - supportive care - DVT prophylaxis (2) Constipation ICD Codes: K59.00 - Constipation, unspecified Status: Chronic Plan: - Pt c/o intermittent constipation, worse for last 9 days - received enema in ER - KUB (04/27) --> nonspecific bowel gas pattern - start colace 100mg BID - repeat KUB in AM (3) H/O malignant neoplasm of breast ICD Codes: Z85.3 - Personal history of malignant neoplasm of breast Status: Chronic Plan: - s/p right breast lumpectomy - s/p chemotherapy - Pt follows with Dr. Garrett - anastrozole Problem Qualifiers (1) Nausea & vomiting: Qualified Codes: R11.2 - Nausea with vomiting, unspecified (2) Constipation: Qualified Codes: K59.00 - Constipation, unspecified Geo Cortes DO Apr 27, 2017 14:54 Johana Jeter Apr 27, 2017 16:01
[2017-04-27 15:30] LABS: MAGNESIUM 1.7 MG/DL (1.5-2.5)
--- NOTE | 2017-04-27 15:48 | RADRPT ---
EXAM DATE/TIME: 04/27/2017 15:25 [facility] COMPARISON: No previous studies available for comparison. INDICATIONS : Constipation. MEDICAL HISTORY : Carcinoma, breast. SURGICAL HISTORY : Right breast lumpectomy. ENCOUNTER: Initial ACUITY: 1 week PAIN SCORE: 10/10 LOCATION: abdomen FINDINGS: 2 AP views of the abdomen and pelvis were obtained and demonstrate gas and stool noted segmental and colon. There are multiple loops of nondilated air-containing small bowel with no evidence of free air or mass effect on this supine study. There are surgical clips in right upper quadrant consistent wit h prior cholecystectomy. The bony structures are intact. Vascular calcifications are present. CONCLUSION: 1. Mildly nonspecific, nonobstructive bowel gas pattern which could represent mild ileus and gastroen teritis. 2. Status post cholecystectomy. Cory Macias MD on April 27, 2017 at 15:45 Board Certified Radiologist. This report was verified electronically.
[2017-04-27] MEDS: NS + KCL 20 MEQ INJ 1,000 ML IV SCH (16:14)
--- NOTE | 2017-04-27 16:45 | PD.CONS ---
HPI History of Present Illness This is a 57 year old female with stage I brca s/p surgery and radiation who presented to ER after her PCP DR Lambert advised her to come for hematemesis. Yesterday she had multilple episodes n/v, saw red blood in vomit. Blood was scant and only appeared in one episode emesis after she'd been vomiting awhile. NO BM in 9 days. Admits abd pain in the last 9 days. Monday she took Mg citrate and threw it up. Tried dulcolax and no yield. SHe has been constipated since taking meds for her brca. SHe takes gabapentin. Last colonoscopy 11 years ago done somewhere in the area, normal per pt. Thinks she has had EGD maybe 20y ago cannot recall further details. (Cherie Brennan) PFSH Past Medical History brca s/p radiation, lumpectomy, on arimidex neuropathy Past Surgical History lumpectomy cholecystectomy hysterectomy diag laparoscopy (Cherie Brennan) Coded Allergies: codeine (Unverified Allergy, Intermediate, Itching, 04/27/17) erythromycin base (Unverified Allergy, Intermediate, Itching, 04/27/17) penicillin G (Unverified Allergy, Intermediate, HIVES, 04/27/17) epinephrine (Unverified Allergy, Mild, Seizures, 04/27/17) Family History brca Social History occasional etoh no tobacco no illicit drug use (Cherie Brennan) Review of Systems Constitutional: DENIES: Fever, Chills Eyes: DENIES: Blurred vision Ears, nose, mouth, throat: DENIES: Hearing loss Respiratory: DENIES: Wheezing Cardiovascular: DENIES: Chest pain Gastrointestinal: COMPLAINS OF: Abdominal pain, Constipation, Nausea, Vomiting , Hematemesis, DENIES: Bloody stools Genitourinary: DENIES: Hematuria Musculoskeletal: DENIES: Joint Swelling Integumentary: COMPLAINS OF: Jaundice Hematologic/lymphatic: DENIES: Bruising Neurologic: DENIES: Abnormal gait Psychiatric: DENIES: Confusion (Cherie Brennan) GI Exam Vitals I&O Vital Signs Date Time Temp Pulse Resp B/P (MAP) Pulse Ox O2 Delivery O2 Flow Rate FiO2 04/27/17 15:46 99 18 134/79 (97) 98 Room Air 04/27/17 12:41 94 18 125/74 (91) 100 Room Air 04/27/17 12:28 18 04/27/17 11:39 98.6 98 14 127/78 (94) 98 I/O 04/26/17 04/26/17 04/26/17 04/27/17 04/27/17 04/27/17 07:00 15:00 23:00 07:00 15:00 23:00 Intake Total 1000 ml Balance 1000 ml Intake IV Total 1000 ml Imaging Last Impressions Chest X-Ray 04/27/17 1208 Signed Impressions: Service Date/Time: April 12:18 - CONCLUSION: No acute abnormality is seen. Daniel Mcmanus MD Laboratory Test 04/27/17 12:25 04/27/17 12:35 Urine Color YELLOW Urine Turbidity HAZY Urine pH 6.0 Urine Specific [place]ass 1.024 Urine Protein 100 mg/dL Urine Glucose (UA) NEG mg/dL Urine Ketones 150 mg/dL Urine Occult Blood LARGE Urine Nitrite NEG Urine Bilirubin NEG Urine Urobilinogen LESS THAN 2.0 MG/DL Urine Leukocyte Esterase MOD Urine RBC 76 /hpf Urine WBC 10 /hpf Urine Squamous Epithelial Cells 2 /hpf Urine Transitional Epithelial Cells <1 /hpf Urine Hyaline Casts 4 /lpf Urine Mucus FEW /lpf Microscopic Urinalysis Comment CULTURE INDICATED Urine Opiates Screen NEG Urine Barbiturates Screen NEG Urine Amphetamines Screen NEG Urine Benzodiazepines Screen NEG Urine Cocaine Screen NEG Urine Cannabinoids Screen NEG White Blood Count 5.3 TH/MM3 Red Blood Count 3.72 MIL/MM3 Hemoglobin 14.0 GM/DL Hematocrit 39.7 % Mean Corpuscular Volume 106.7 FL Mean Corpuscular Hemoglobin 37.6 PG Mean Corpuscular Hemoglobin Concent 35.2 % Red Cell Distribution Width 15.4 % Platelet Count 189 TH/MM3 Mean Platelet Volume 7.7 FL Neutrophils (%) (Auto) 70.6 % Lymphocytes (%) (Auto) 16.3 % Monocytes (%) (Auto) 10.6 % Eosinophils (%) (Auto) 0.3 % Basophils (%) (Auto) 2.2 % Neutrophils # (Auto) 3.8 TH/MM3 Lymphocytes # (Auto) 0.9 TH/MM3 Monocytes # (Auto) 0.6 TH/MM3 Eosinophils # (Auto) 0.0 TH/MM3 Basophils # (Auto) 0.1 TH/MM3 CBC Comment DIFF FINAL Differential Comment Blood Urea Nitrogen 13 MG/DL Creatinine 0.62 MG/DL Random Glucose 67 MG/DL Total Protein 7.4 GM/DL Albumin 3.5 GM/DL Calcium Level 8.9 MG/DL Alkaline Phosphatase 189 U/L Aspartate Amino Transf (AST/SGOT) 418 U/L Alanine Aminotransferase (ALT/SGPT) 109 U/L Total Bilirubin 1.0 MG/DL Sodium Level 137 MEQ/L Potassium Level 3.9 MEQ/L Chloride Level 95 MEQ/L Carbon Dioxide Level 21.7 MEQ/L Anion Gap 20 MEQ/L Estimat Glomerular Filtration Rate 100 ML/MIN Magnesium Level 1.7 MG/DL Lipase 139 U/L Ethyl Alcohol Level 94 MG/DL Date/Time Source Procedure Growth Status 04/27/17 12:25 Urine Clean Catch Urine Culture Pending Received Physical Examination HEENT: PERRL; normocephalic; atraumatic; no jaundice. CHEST: CTA CARDIAC: tachy ABDOMEN: Soft, nondistended, nontender; no hepatosplenomegaly; bowel sounds are present in all four quadrants. EXTREMITIES: No clubbing, cyanosis, or edema. SKIN: Normal; no rash; no jaundice. ENGINE BUILDUP MECHANIC: No focal deficits; alert and oriented times three. (Cherie Brennan [facility]) Assessment and Plan Plan ASSESSMENT - n/v, hematemesis - scant red blood in emesis after mult episodes n/v, could be david centeno tear. 20y since last EGD n/v could be r/t constipation HH WNL - constipation, abd pain - severe, no BM 9 days. Denies opiate use. Takes gabapentin. tried dulcolax no yield. threw up mg citrate last colonoscopy 11 y ago. pt wishes to go home cory will do outpt colonoscopy - elevated LFTs - unclear etiology pt denies heavy drinking but does drink 1-2 glasses wine periodically. takes gabapentin, arimidex? will get hepatitis panel PLAN - EGD in am - NPO after MN - obtain consent - outpt colonoscopy - hepatitis panel - SSE x 2 - if no BM after SSE, consider gastrografin enema - monitor labs - further recs to follow pt seen by myself and Dr Gaston and this note is written on his behalf (Cherie Brennan) Physician Comments Seen and examined with FAISAL, liver cabrera, ct abd/pelvis and egd planned this admission. Can do outpt. colonoscopy. Bowel regimen. Will follow. Thank you (Lance Gaston MD) Cherie Brennan Apr 27, 2017 16:45 Lance Gaston MD Apr 27, 2017 17:17
--- NOTE | 2017-04-27 17:37 | RADRPT ---
EXAM DATE/TIME: 04/27/2017 17:14 [facility] COMPARISON: No previous studies available for comparison. EXTERNAL COMPARISON : [facility], CT ABDOMEN & PELVIS W/O CONTRAST, December 06, 2013 INDICATIONS : Transaminitis. MEDICAL HISTORY : Hypertension. Gastroesophageal reflux disease. Carcinoma, breast. SURGICAL HISTORY : Tonsillectomy. Cholecystectomy. Mastectomy, right. Hysterectomy. ENCOUNTER: Initial ACUITY: 1 day PAIN SCORE: 6/10 LOCATION: Bilateral upper quadrant MEASUREMENTS: LIVER: 15.0 cm length COMMON DUCT: 7 mm RIGHT KIDNEY: 9.4 x 3.4 x 4.5 cm SPLEEN: 6.7 cm length FINDINGS: LIVER: The liver is at the upper limits of normal in size with diffuse increased echogenicity. There is no f ocal mass or ductal dilatation. There is no ascites. COMMON DUCT: No intraluminal mass or stone visualized. GALLBLADDER: Status post cholecystectomy. PANCREAS: The visualized portions are within normal limits. RIGHT KIDNEY: Hydronephrosis or mass. There are several small echogenic foci without definite shadowing. This may r epresent echogenic sinus fat. Small calculi cannot be excluded. SPLEEN: No focal lesion. CONCLUSION: 1. Moderate hepatic steatosis with no focal lesion. 2. Echogenic sinus fat versus small calculi in the right kidney with no obstruction. Cory Macias MD on April 27, 2017 at 17:31 Board Certified Radiologist. This report was verified electronically.
[2017-04-27] MEDS ORDERED: GABAPENTIN 300 MG CAP PO SCH (21:00)
[2017-04-27] MEDS: SODIUM CHLORIDE 0.9% FLUSH 10 ML FLUSH IV FLUSH SCH (21:00)
[2017-04-27] MEDS ORDERED: DOCUSATE SODIUM 50 MG/SENNA 8.6 MG TAB PO SCH (21:00)
[2017-04-27] MEDS: DOCUSATE SODIUM 100 MG CAP PO SCH (21:30)
[2017-04-27] MEDS ORDERED: METOPROLOL TARTRATE 25 MG TAB PO PRN (22:15)
[2017-04-27] MEDS ORDERED: POVIDONE IODINE 5% (ANTISEPSIS KIT) 4 APPLICATIONS EACH NARE PRN (22:15)
[2017-04-27] MEDS ORDERED: CHLORHEXIDINE GLUCONATE 2 % 1 PACK (2 CLOTHS) TOPICAL PRN (22:15)
[2017-04-27] MEDS ORDERED: SODIUM CHLORID 0.9% 500 ML IV PRN (22:15)
[2017-04-27] MEDS ORDERED: LACTATED RINGER'S 1000 ML IV PRN (22:15)
[2017-04-28 00:30] VITALS: PULSE 90
[2017-04-28] MEDS: NS + KCL 20 MEQ INJ 1,000 ML IV SCH (02:27)
[2017-04-28 03:49] VITALS: BP 124/76; PULSE 89; RESP 16; TEMP 98.8; O2SAT 99
[2017-04-28 04:00] VITALS: PULSE 84
[2017-04-28 05:31] LABS: AUTOMATED NEUTROPHIL # 1.7 TH/MM3 (1.8-7.7); BASOPHIL # 0.1 TH/MM3 (0-0.2); BASOPHIL % 2.1 % (0.0-2.0); EOSINOPHIL # 0.1 TH/MM3 (0-0.4); HEMATOCRIT 34.6 % (35.0-46.0); HEMOGLOBIN 11.7 GM/DL (11.6-15.3); LYMPH % 29.9 % (9.0-44.0); LYMPHOCYTE # 1.1 TH/MM3 (1.0-4.8); MEAN CELL VOLUME 108.5 FL (80.0-100.0); MEAN CORPUSCULAR HEMOGLOBIN 36.6 PG (27.0-34.0); MEAN CORPUSCULAR HGB CONC 33.8 % (32.0-36.0); MEAN PLATELET VOLUME 8.2 FL (7.0-11.0); MONO % 20.6 % (0.0-8.0); MONOCYTE # 0.8 TH/MM3 (0-0.9); NEUT % 45.4 % (16.0-70.0); PLATELET COUNT 160 TH/MM3 (150-450); RED BLOOD COUNT 3.19 MIL/MM3 (4.00-5.30); RED CELL DISTRIBUTION WIDTH 15.5 % (11.6-17.2); WHITE BLOOD COUNT 3.8 TH/MM3 (4.0-11.0)
[2017-04-28 05:43] LABS: BICARBONATE 21.8 MEQ/L (21.0-32.0); CALCIUM 8.5 MG/DL (8.5-10.1); CREATININE 0.61 MG/DL (0.50-1.00); MAGNESIUM 1.5 MG/DL (1.5-2.5)
[2017-04-28 07:12] VITALS: BP 133/74; PULSE 87; RESP 18; TEMP 98; O2SAT 98
[2017-04-28 08:20] VITALS: PULSE 86
--- NOTE | 2017-04-28 08:50 | RADRPT ---
EXAM DATE/TIME: 04/28/2017 08:35 [facility] COMPARISON: ABDOMEN KUB ONLY, April 27, 2017, 15:25. INDICATIONS : Constipation for 10 days, abdominal pain. MEDICAL HISTORY : Hypertension. Carcinoma, breast. SURGICAL HISTORY : Hysterectomy. Cholecystectomy. Lumpectomy, right breast. ENCOUNTER: Subsequent ACUITY: 1 week PAIN SCORE: 7/10 LOCATION: Entire abdomen. FINDINGS: Supine view of the abdomen was performed. The abdominal bowel gas pattern is normal. No abnormal ma sses, calcifications, or organomegaly is seen. Cholecystectomy clips. Post surgical changes in the p teresa. The osseous structures are unremarkable. CONCLUSION: No acute disease. No dilated bowel loops. kB Cartwright MD on April 28, 2017 at 8:47 Board Certified Radiologist. This report was verified electronically.
[2017-04-28] MEDS: SODIUM CHLORIDE 0.9% FLUSH 10 ML FLUSH IV FLUSH SCH (09:00)
[2017-04-28] MEDS ORDERED: PANTOPRAZOLE SOD 40 MG DELAYED RELEASE TAB PO SCH (09:00)
[2017-04-28] MEDS ORDERED: ANASTROZOLE 1 MG TAB PO SCH (09:00)
[2017-04-28] MEDS: DOCUSATE SODIUM 100 MG CAP PO SCH (09:08)
[2017-04-28 09:40] LABS: ALBUMIN 2.8 GM/DL (3.4-5.0); DIRECT BILIRUBIN ADULT 0.3 MG/DL (0.0-0.2); INDIRECT BILIRUBIN 0.7 MG/DL (0.0-0.8)
[2017-04-28 10:10] LABS: HEPATITIS A AB IGM NEGATIVE (NEGATIVE); HEPATITIS B CORE AB IGM NEGATIVE (NEGATIVE); HEPATITIS C AB IgG NEGATIVE (NEGATIVE)
[2017-04-28 11:01] LABS: HEPATITIS B SURFACE ANTIGEN POSITIVE (NEGATIVE)
--- NOTE | 2017-04-28 11:31 | GIPROC ---
[facility] [address] [facility]. [facility], [address] EGD PROCEDURE REPORT EXAM DATE: 04/28/2017 PATIENT NAME: Ratna Dumont MR #: [id number] BIRTHDATE: 1960 ATTENDING: Lance Gaston MD ORDER #: [id number] SPRING FITTER: Telly Wolfe and Jayda Hull STATUS: inpatient INDICATIONS: The patient is a 57 yr old female here for an EGD due to epigastric abdominal pain PROCEDURE PERFORMED: EGD w/ biopsy MEDICATIONS: None and Per Anesthesia. TOPICAL ANESTHETIC: CONSENT: The patient understands the risks and benefits of the procedure and understands that these risks include, but are not limited to: sedation, allergic reaction, infection, perforation and/or bleeding. Alternative means of evaluation and treatment include, among others: physical exam, x-rays, and/or surgical intervention. The patient elects to proceed with this endoscopic procedure. medical equipment was checked for proper function. Hand hygiene and appropriate measures for infection prevention was taken. After the risks, benefits and alternatives of the procedure were thoroughly explained, Informed consent was verified, confirmed and timeout was successfully executed by the treatment team. The patient was anesthetized with topical anesthesia and the Pentax [id number] endoscope was introduced through the mouth and advanced to the gastroesophageal junction. Retroflexion was not performed The gastroscope was then slowly withdrawn and removed. ESOPHAGUS: There was LA Class D esophagitis noted. A biopsy was performed using cold forceps. Sample sent for histology. Multiple rings in the esophagus with friable mucosa. Some bleeding upon contact. Large ulerated GE junction. Unable to pass scope through this area. Very friable so no dilation attempted. ADVERSE EVENTS: There were no complications. IMPRESSIONS: 1. There was LA Class D esophagitis noted; biopsy was performed 2. Multiple rings in the esophagus with friable mucosa. Some bleeding upon contact. Large ulerated GE junction. Unable to pass scope through this area. Very friable so no dilation attempted 3. Retroflexion was not performed RECOMMENDATIONS: 1. Await biopsy results. Biopsy results will not be ready for 7-10 days. If you don't hear from us in two weeks, call our office for biopsy results. 2. Anti-reflux regimen 3. Continue PPI 4. Carafate liquid 1 gm po tid ac PATIENT CONDITION: stable DISPOSITION: Inpatient REPEAT EXAM: Return 1 month EGD pending biopsy results Lance Gaston MD eSigned: Lance Gaston MD 04/28/2017 11:31 AM cc:
[2017-04-28] MEDS ORDERED: SUCRALFATE 1 GM/10 ML CUP PO SCH (12:00)
[2017-04-28] MEDS ORDERED: LIDOCAINE HCL 1% PF 5 ML SYRINGE OTHER ONE (12:00)
[2017-04-28] MEDS ORDERED: PROPOFOL 200 MG/20 ML AMP IV ONE (12:00)
--- NOTE | 2017-04-28 12:08 | HHI.PR ---
Subjective Remarks Patient reports feeling much better asking to go home Objective Vitals Vital Signs Date Time Temp Pulse Resp B/P (MAP) Pulse Ox O2 Delivery O2 Flow Rate FiO2 04/28/17 11:43 99.5 86 18 135/81 (99) 99 04/28/17 07:12 98.0 87 18 133/74 (93) 98 04/28/17 04:00 84 04/28/17 03:49 98.8 89 16 124/76 (92) 99 04/28/17 00:30 90 04/27/17 23:22 99.4 101 17 116/67 (83) 96 04/27/17 22:00 99 04/27/17 20:02 99.1 92 16 140/75 (96) 100 04/27/17 18:12 100.0 98 18 131/70 (90) 98 04/27/17 16:56 04/27/17 15:46 99 18 134/79 (97) 98 Room Air 04/27/17 12:41 94 18 125/74 (91) 100 Room Air 04/27/17 12:28 18 04/28/17 04/28/17 04/29/17 15:00 23:00 07:00 Intake Total 200 ml Balance 200 ml Other 200 ml Result Diagram: 04/28/17 0446 04/28/17 0446 Other Results Laboratory Tests Test 04/27/17 12:25 04/27/17 12:35 04/27/17 21:23 04/28/17 04:46 Urine Color YELLOW Urine Turbidity HAZY Urine pH 6.0 Urine Specific [place] 1.024 Urine Protein 100 mg/dL Urine Glucose (UA) NEG mg/dL Urine Ketones 150 mg/dL Urine Occult Blood LARGE Urine Nitrite NEG Urine Bilirubin NEG Urine Urobilinogen LESS THAN 2.0 MG/DL Urine Leukocyte Esterase MOD Urine RBC 76 /hpf Urine WBC 10 /hpf Urine Squamous Epithelial Cells 2 /hpf Urine Transitional Epithelial Cells <1 /hpf Urine Hyaline Casts 4 /lpf Urine Mucus FEW /lpf Microscopic Urinalysis Comment CULTURE INDICATED Urine Opiates Screen NEG Urine Barbiturates Screen NEG Urine Amphetamines Screen NEG Urine Benzodiazepines Screen NEG Urine Cocaine Screen NEG Urine Cannabinoids Screen NEG White Blood Count 5.3 TH/MM3 3.8 TH/MM3 Red Blood Count 3.72 MIL/MM3 3.19 MIL/MM3 Hemoglobin 14.0 GM/DL 11.7 GM/DL Hematocrit 39.7 % 34.6 % Mean Corpuscular Volume 106.7 FL 108.5 FL Mean Corpuscular Hemoglobin 37.6 PG 36.6 PG Mean Corpuscular Hemoglobin Concent 35.2 % 33.8 % Red Cell Distribution Width 15.4 % 15.5 % Platelet Count 189 TH/MM3 160 TH/MM3 Mean Platelet Volume 7.7 FL 8.2 FL Neutrophils (%) (Auto) 70.6 % 45.4 % Lymphocytes (%) (Auto) 16.3 % 29.9 % Monocytes (%) (Auto) 10.6 % 20.6 % Eosinophils (%) (Auto) 0.3 % 2.0 % Basophils (%) (Auto) 2.2 % 2.1 % Neutrophils # (Auto) 3.8 TH/MM3 1.7 TH/MM3 Lymphocytes # (Auto) 0.9 TH/MM3 1.1 TH/MM3 Monocytes # (Auto) 0.6 TH/MM3 0.8 TH/MM3 Eosinophils # (Auto) 0.0 TH/MM3 0.1 TH/MM3 Basophils # (Auto) 0.1 TH/MM3 0.1 TH/MM3 CBC Comment DIFF FINAL DIFF FINAL Differential Comment Blood Urea Nitrogen 13 MG/DL 10 MG/DL Creatinine 0.62 MG/DL 0.61 MG/DL Random Glucose 67 MG/DL 63 MG/DL Total Protein 7.4 GM/DL 6.0 GM/DL Albumin 3.5 GM/DL 2.8 GM/DL Calcium Level 8.9 MG/DL 8.5 MG/DL Alkaline Phosphatase 189 U/L 145 U/L Aspartate Amino Transf (AST/SGOT) 418 U/L 218 U/L Alanine Aminotransferase (ALT/SGPT) 109 U/L 70 U/L Total Bilirubin 1.0 MG/DL 1.0 MG/DL Sodium Level 137 MEQ/L 137 MEQ/L Potassium Level 3.9 MEQ/L 4.3 MEQ/L Chloride Level 95 MEQ/L 103 MEQ/L Carbon Dioxide Level 21.7 MEQ/L 21.8 MEQ/L Anion Gap 20 MEQ/L 12 MEQ/L Estimat Glomerular Filtration Rate 100 ML/MIN 102 ML/MIN Magnesium Level 1.7 MG/DL 1.5 MG/DL Lipase 139 U/L Ethyl Alcohol Level 94 MG/DL Hepatitis A IgM Antibody NEGATIVE Hepatitis B Surface Antigen POSITIVE Hepatitis B Core IgM Antibody NEGATIVE Hepatitis C Antibody NEGATIVE Direct Bilirubin 0.3 MG/DL Indirect Bilirubin 0.7 MG/DL Imaging Last Impressions Abdomen X-Ray 04/28/17 0800 Signed Impressions: Service Date/Time: Friday, April 28, 2017 08:35 - CONCLUSION: No acute disease. No dilated bowel loops. Bk Cartwright MD Chest X-Ray 04/27/17 1208 Signed Impressions: Service Date/Time: April 12:18 - CONCLUSION: No acute abnormality is seen. Daniel Mcmanus MD Liver Ultrasound 04/27/17 0000 Signed Impressions: Service Date/Time: April 17:14 - CONCLUSION: 1. Moderate hepatic steatosis with no focal lesion. 2. Echogenic sinus fat versus small calculi in the right kidney with no obstruction. Cory Macias MD Objective Remarks GENERAL: This is a well-nourished, well-developed patient, in no apparent distress. CARDIOVASCULAR: Regular rate and rhythm without murmurs, gallops, or rubs. RESPIRATORY: Clear to auscultation. Breath sounds equal bilaterally. No wheezes , rales, or rhonchi. GASTROINTESTINAL: Abdomen soft, non-tender, nondistended. Normal active bowel sounds MUSCULOSKELETAL: Extremities without clubbing, cyanosis, or edema. NEURO: Alert & Oriented x4 to person, place, time, situation. Moves all ext x4 Procedures EGD 04/28/[address] Gaston A/P Problem List: (1) Nausea & vomiting ICD Codes: R11.2 - Nausea with vomiting, unspecified Status: Acute Plan: - dehydration on clinical basis - IVF completed - zofran prn - treat constipation. Patient unable to tolerate SSE. had small hard stool today - continue bowel regiment - supportive care - DVT prophylaxis - EGD 04/28/[address] Gaston IMPRESSIONS: 1. There was LA Class D esophagitis noted; biopsy was performed 2. Multiple rings in the esophagus with friable mucosa. Some bleeding upon contact. Large ulerated GE junction. Unable to pass scope through this area. Very friable so no dilation attempted 3. Retroflexion was not performed RECOMMENDATIONS: 1. Await biopsy results. Biopsy results will not be ready for 7-10 days. If you don't hear from us in two weeks, call our office for biopsy results. 2. Anti-reflux regimen 3. Continue PPI 4. Carafate liquid 1 gm po tid ac REPEAT EXAM: Return 1 month EGD pending biopsy results - Patient started on regular diet per GI - if patient tolerates PO in take and has BM plan to DC later today (2) Constipation ICD Codes: K59.00 - Constipation, unspecified Status: Chronic Plan: - Pt c/o intermittent constipation, worse for last 9 days - received enema in ER - KUB (04/27) --> nonspecific bowel gas pattern - start colace 100mg BID - repeat KUB (04/28) --> nonspecific bowel gas pattern - positive flatus and normoactive bowel sounds - repeat fleet enema with RN to administer (3) H/O malignant neoplasm of breast ICD Codes: Z85.3 - Personal history of malignant neoplasm of breast Status: Chronic Plan: - s/p right breast lumpectomy - s/p chemotherapy - Pt follows with Dr. Garrett - anastrozole (4) Abnormal urinalysis ICD Codes: R82.90 - Unspecified abnormal findings in urine Plan: Urine culture reviewed and revealed 50,000- 100,000 mixed gram positive mily No further abx indicated Assessment and Plan Patient examined. Assessment and plan formulated with Johana Jeter PA-C. I agree with the above. Successful BM Pt discharge to home See discharge orders Problem Qualifiers (1) Nausea & vomiting: Qualified Codes: R11.2 - Nausea with vomiting, unspecified (2) Constipation: Qualified Codes: K59.00 - Constipation, unspecified Johana Jeter Apr 28, 2017 12:08 Geo Cortes DO May 03, 2017 10:48
[2017-04-28] MEDS ORDERED: DOCU1CAP39 PO (14:00)
[2017-04-28] MEDS ORDERED: MIRA3350 PO (14:00)
[2017-04-28] MEDS ORDERED: PANT40TA3 PO (14:11)
[2017-04-28] MEDS ORDERED: SUCR1S PO (14:11)
[2017-04-28] MEDS ORDERED: SOD PHOSPHATE/SOD BIPHOSPHATE (ADULT) ENEMA 133ML RECTAL ONE (14:15)
[2017-04-28 15:59] VITALS: BP 142/80; PULSE 97; RESP 18; TEMP 99; O2SAT 98
[2017-04-28] MEDS ORDERED: cefTRIAXone INJ 1,000 MG in SODIUM CHLORIDE 0.9% INJ 100 ML IV SCH (16:00)
== END 2017-04-28 18:55 ==
LOC: NEPC 11:37 → NEDA 14:40 → NEPGCP 17:21
PROVIDERS: ADMIT Hospitalist; ATTEND Hospitalist
DX: K59.03 Drug induced constipation (principal); K92.0 Hematemesis; Z85.3 Personal history of malignant neoplasm of breast; K59.00 Constipation, unspecified; I10 Essential (primary) hypertension; Z79.899 Other long term (current) drug therapy; Y90.4 Blood alcohol level of 80-99 mg/100 ml; R79.89 Other specified abnormal findings of blood chemistry; N30.00 Acute cystitis without hematuria; F41.9 Anxiety disorder, unspecified; N80.9 Endometriosis, unspecified; F10.10 Alcohol abuse, uncomplicated; E86.0 Dehydration; Z92.21 Personal history of antineoplastic chemotherapy; Z92.3 Personal history of irradiation; G62.9 Polyneuropathy, unspecified; K20.9 Esophagitis, unspecified; K22.2 Esophageal obstruction
CPT/HCPCS: 00731; 43239; 71045; 74018; 76705; 80048; 80053; 80074; 80076; 80307; 81001; 83690; 83735; 85025; 87086; 88305; 96361; 96365; 96375; 97161; 99285; C9113; G0378; G8987; G8988; J0696; J2405; J3480; J7030; J7120

== ENCOUNTER 2018-01-05 17:58 | Inpatient (IN) ==
[2018-01-05] MEDS ORDERED: Sod Chloride 0.9% Inj 1,000 ML IV.SIG ONE (18:44)
[2018-01-05] MEDS ORDERED: Morphine Inj 4 MG/ML Vial IV.PUSH ONE ×2 (18:56→21:54)
--- NOTE | 2018-01-05 19:36 | ED ---
HPI General Chief complaint: Nausea/Vomiting/Diarrhea Stated complaint: reaction to medication-vomitting Time Seen by Provider: 01/05/18 18:42 Source: patient and family Mode of arrival: wheelchair Limitations: no limitations History of Present Illness HPI Narrative: 57-year-old female that presents to the ED for evaluation of lower abdominal pain with nausea vomiting and low-grade diarrhea. Per patient she has had this for 3 days. Per patient progressively getting worse. She can keep anything down. She does have a history of a colonoscopy having been done a week ago. The patient was done on Monday of last week. She was put on Protonix and ever since she is been having the symptoms. Patient more aggressive the past 3 days. She has not seen her GI doctor for this. Her primary care doctor recommended that she comes here. She was told she had diverticulosis by her GI doctor. She follows with Dr. Mane. She denies any urinary symptoms. Per patient the pain is 10 out of 10 and gets worse when she has to have a bowel movement. Per patient she has bowel movement with blood and stool. States the last time she threw up was 2 days ago. She has been feeling nauseous since. Has not seen anybody for this. No other medical issues at this time. Related Data Home Medications Medication Instructions Recorded Confirmed anastrozole 1 mg PO DAILY 01/05/18 01/05/18 diclofenac sodium 75 mg PO BID 01/05/18 01/05/18 escitalopram oxalate 20 mg PO DAILY 01/05/18 01/05/18 gabapentin 300 mg PO HS 01/05/18 01/05/18 Previous Rx's Medication Instructions Recorded hydrocodone-acetaminophen 1 tab PO Q6H PRN #12 tab 01/05/18 ondansetron [Zofran ODT] 4 mg PO Q6-8H PRN #20 tab 01/05/18 vancomycin 125 mg PO QID 10 Days #40 cap 01/05/18 Allergies Allergy/AdvReac Type Severity Reaction Status Date / Time codeine Allergy Intermediate Itching Unverified 04/27/17 12:31 erythromycin base Allergy Intermediate Itching Unverified 04/27/17 12:31 penicillin G Allergy Intermediate HIVES Unverified 04/27/17 12:31 epinephrine Allergy Mild Seizures Unverified 04/27/17 12:31 Review of Systems ROS: all other systems reviewed are negative PMFSH History History Provided By: Patient and Family Member Medical History Medical History Breast cancer (Acute) Depression (Acute) History of hysterectomy (Acute) Hx of radiation therapy (Acute) Normal colonoscopy (Acute) Recurrent UTI (Acute) Surgical History Surgical History H/O lumpectomy (Acute) Social History Social History Substance History: No History of Abuse Second Hand Smoke Exposure: No Smoking Status: Former smoker How Often Do You Have a Drink Containing Alcohol: 2 to 3 times a week Recent Travel in [facility] within the Last 8 Weeks: No Recent Out of Country Travel within the Last 8 Weeks: No Exam Narrative Exam Narrative: GENERAL: Well appearing but in some distress SKIN: Focused skin assessment warm/dry. HEAD: Atraumatic. Normocephalic. EYES: Pupils equal and round. No scleral icterus. No injection or drainage. ENT: No nasal bleeding or discharge. Mucous membranes pink and moist. Tongue is midline. No uvula deviation. NECK: Trachea midline. No JVD. CARDIOVASCULAR: Regular rate and rhythm. No murmur appreciated. RESPIRATORY: No accessory muscle use. Clear to auscultation. Breath sounds equal bilaterally. GASTROINTESTINAL: Abdomen soft, non-tender, very tender to touch in the lower abdomen. Hepatic and splenic margins not palpable. MUSCULOSKELETAL: No obvious deformities. No clubbing. No cyanosis. No edema. Full range of motion of the upper and lower extremities bilaterally. 2+ pulses bilaterally. NEUROLOGICAL: Awake and alert. No obvious cranial nerve deficits. Motor grossly within normal limits. Normal speech. PSYCHIATRIC: Appropriate mood and affect; insight and judgment normal. Course Initial Documented Vital Signs Temperature 98.5 F 01/05/18 18:04 Pulse Rate 86 01/05/18 18:04 Respiratory Rate 16 01/05/18 18:04 Blood Pressure 123/75 01/05/18 18:04 Pulse Oximetry 97 01/05/18 18:04 Last Documented Vital Signs Temperature 98.7 F 01/05/18 22:45 Pulse Rate 100 H 01/05/18 22:45 Respiratory Rate 16 01/05/18 22:45 Blood Pressure 118/69 10 22:45 Pulse Oximetry 97 01/05/18 22:45 Medical Decision Making MDM Narrative Medical decision making narrative: 57-year-old female that presents to the ED for evaluation of nausea vomiting diarrhea and abdominal pain. Patient was properly examined and was found to have signs and symptoms concerning for GI bleed versus perforation versus diverticulitis. Labs and imaging were ordered. IV medications were ordered. As this could be concerning for reaction to the Protonix patient was not given Protonix. Labs and imaging came back and did show what appears to be colitis. Patient still little discomfort. Patient blood work looks well but she herself looks still in some discomfort. She was already given morphine and Zofran. She is given another dose of morphine and Zofran. Started on Vancomycin oral to cover for bacterial infection more likely C. difficile. Because she continues to have bloody bowel movements here at the recommend admission for further evaluation and treatment. Patient and preferred that the patient goes home. Patient does feel somewhat improved after Zofran and morphine. They prefer to try outpatient and if anything worsens to come back to the ED. Patient understands that in the hospital she can improve and we can monitor her more closely. She understands that if she continues to bleed she will need to come back to the ED. She understands that she cannot keep anything down she will have to come back to the ED. They still prefer that she goes home. She was given 1 dose of the vancomycin here. She will given a prescription for vancomycin 125 mg 4 times a day for 10 days. I highly recommend that they come here for recheck in 2-3 days if not better. Before patient was discharged she started vomiting again and having more abdominal pain and bowel movement issues. Patient prefers to stay. She changed her mind. Case was discussed with Dr. Cortes who agrees admission for further evaluation and treatment of her colitis. Patient understands and agrees with this plan. All questions were answered to the best of my ability. Medical Screen Exam Complete: Yes Emergency Medical Condition: Yes Differential Diagnosis Differential Diagnosis: GI bleed versus versus C. difficile versus acute abdomen versus colitis versus diverticulitis Medical Records Medical records reviewed: Yes I reviewed the patient's medical records. Lab Data Lab results reviewed: Yes I reviewed the patient's lab results. Result diagrams: 01/06/18 04:45 01/06/18 04:45 Lab Results 01/05/18 01/05/18 01/05/18 Range/Units 19:45 19:45 19:45 WBC 6.6 (4.0-11.0) th/mm3 RBC 2.91 L (4.00-5.30) mil/mm3 Hgb 11.4 L (11.6-15.3) gm/dL Hct 32.2 L (35.0-46.0) % MCV 110.4 H (80.0-100.0) fL MCH 39.3 H (27.0-34.0) pg MCHC 35.5 (32.0-36.0) % RDW 14.4 (11.6-17.2) % Plt Count 205 (150-450) th/mm3 MPV 7.7 (7.0-11.0) fL Neut % (Auto) 65.0 (16.0-70.0) % Lymph % (Auto) 23.5 (9.0-44.0) % [place] % (Auto) 6.0 (0.0-8.0) % Eos % (Auto) 4.3 H (0.0-4.0) % Baso % (Auto) 1.2 (0.0-2.0) % Neut # (Auto) 4.3 (1.8-7.7) th/mm3 Lymph # (Auto) 1.5 (1.0-4.8) th/mm3 [place] # (Auto) 0.4 (0.0-0.9) th/mm3 Eos # (Auto) 0.3 (0.0-0.4) th/mm3 Baso # (Auto) 0.1 (0.0-0.2) th/mm3 WBC Differential . Differential Comment Auto diff final PT 10.6 (9.8-11.6) sec INR 1.0 Ratio APTT 24.3 (24.3-30.1) sec Sodium 138 (136-145) meq/L Potassium 4.1 (3.5-5.1) meq/L Chloride 103 (98-107) meq/L Carbon Dioxide 20.1 L (21.0-32.0) meq/L Anion Gap 15 (5-15) meq/L BUN 15 (7-18) mg/dL Creatinine 1.15 H (0.50-1.00) mg/dL Estimated GFR 49 L (>89) mL/min Random Glucose 87 (74-106) mg/dL Calcium 8.9 (8.5-10.1) mg/dL Total Bilirubin 0.7 (0.2-1.0) mg/dL AST 69 H (15-37) U/L ALT 26 (10-53) U/L Alkaline Phosphatase 136 H (45-117) U/L Total Protein 7.3 (6.4-8.2) g/dL Albumin 3.5 (3.4-5.0) g/dL Lipase 87 (73-393) U/L Stl C.difficile DNA Amp (Negative) St C. diff Tox Epid 027 (Negative) Blood Type Antibody Screen 01/05/18 01/05/18 01/06/18 Range/Units 19:45 19:45 04:45 WBC 8.9 (4.0-11.0) th/mm3 RBC 2.58 L (4.00-5.30) mil/mm3 Hgb 9.7 L (11.6-15.3) gm/dL Hct 28.6 L (35.0-46.0) % MCV 110.9 H (80.0-100.0) fL MCH 37.8 H (27.0-34.0) pg MCHC 34.1 (32.0-36.0) % RDW 14.8 (11.6-17.2) % Plt Count 164 (150-450) th/mm3 MPV 7.9 (7.0-11.0) fL Neut % (Auto) 84.7 H (16.0-70.0) % Lymph % (Auto) 8.1 L (9.0-44.0) % [place] % (Auto) 5.8 (0.0-8.0) % Eos % (Auto) 0.6 (0.0-4.0) % Baso % (Auto) 0.8 (0.0-2.0) % Neut # (Auto) 7.6 (1.8-7.7) th/mm3 Lymph # (Auto) 0.7 L (1.0-4.8) th/mm3 [place] # (Auto) 0.5 (0.0-0.9) th/mm3 Eos # (Auto) 0.1 (0.0-0.4) th/mm3 Baso # (Auto) 0.1 (0.0-0.2) th/mm3 WBC Differential . Differential Comment Auto diff final PT (9.8-11.6) sec INR Ratio APTT (24.3-30.1) sec Sodium (136-145) meq/L Potassium (3.5-5.1) meq/L Chloride (98-107) meq/L Carbon Dioxide (21.0-32.0) meq/L Anion Gap (5-15) meq/L BUN (7-18) mg/dL Creatinine (0.50-1.00) mg/dL Estimated GFR (>89) mL/min Random Glucose (74-106) mg/dL Calcium (8.5-10.1) mg/dL Total Bilirubin (0.2-1.0) mg/dL AST (15-37) U/L ALT (10-53) U/L Alkaline Phosphatase (45-117) U/L Total Protein (6.4-8.2) g/dL Albumin (3.4-5.0) g/dL Lipase (73-393) U/L Stl C.difficile DNA Amp Positive H (Negative) St C. diff Tox Epid 027 Negative (Negative) Blood Type O Positive Antibody Screen Negative 01/06/18 Range/Units 04:45 WBC (4.0-11.0) th/mm3 RBC (4.00-5.30) mil/mm3 Hgb (11.6-15.3) gm/dL Hct (35.0-46.0) % MCV (80.0-100.0) fL MCH (27.0-34.0) pg MCHC (32.0-36.0) % RDW (11.6-17.2) % Plt Count (150-450) th/mm3 MPV (7.0-11.0) fL Neut % (Auto) (16.0-70.0) % Lymph % (Auto) (9.0-44.0) % [place] % (Auto) (0.0-8.0) % Eos % (Auto) (0.0-4.0) % Baso % (Auto) (0.0-2.0) % Neut # (Auto) (1.8-7.7) th/mm3 Lymph # (Auto) (1.0-4.8) th/mm3 [place] # (Auto) (0.0-0.9) th/mm3 Eos # (Auto) (0.0-0.4) th/mm3 Baso # (Auto) (0.0-0.2) th/mm3 WBC Differential Differential Comment PT (9.8-11.6) sec INR Ratio APTT (24.3-30.1) sec Sodium 143 (136-145) meq/L Potassium 4.6 (3.5-5.1) meq/L Chloride 107 (98-107) meq/L Carbon Dioxide 22.6 (21.0-32.0) meq/L Anion Gap 13 (5-15) meq/L BUN 13 (7-18) mg/dL Creatinine 0.97 (0.50-1.00) mg/dL Estimated GFR 60 L (>89) mL/min Random Glucose 90 (74-106) mg/dL Calcium 7.7 L D (8.5-10.1) mg/dL Total Bilirubin 1.0 (0.2-1.0) mg/dL AST 76 H (15-37) U/L ALT 24 (10-53) U/L Alkaline Phosphatase 139 H (45-117) U/L Total Protein 6.1 L D (6.4-8.2) g/dL Albumin 3.0 L (3.4-5.0) g/dL Lipase 50 L (73-393) U/L Stl C.difficile DNA Amp (Negative) St C. diff Tox Epid 027 (Negative) Blood Type Antibody Screen Imaging Data Attestation: I personally reviewed and interpreted this imaging study as follows : Radiologist's impression: Chest X-Ray 01/05/18 00:00 CONCLUSION: Negative examination. Abdomen/Pelvis CT 01/05/18 21:00 CONCLUSION: 1. Thickening of the colon including the descending colon, sigmoid, and rectum and ascending colon likely related to colitis given the distribution. 2. Hepatic steatosis. 3. Mild hiatal hernia. Abdomen X-Ray 01/06/18 08:00 CONCLUSION: No acute findings. Residual contrast in renal collecting system and bladder. Discharge Plan Discharge Disposition Patient Disposition: 30 Still Patient Discharge Condition Condition: Stable Discharge Details Anticipated Discharge Date: 01/05/18 Diagnosis: Colitis, Clostridium difficile infection Physicians Team ED Provider: Omaira Kinney ED Midlevel Provider: Andrea Russo Primary Care Provider: Ivana Paul Attending Provider: Geo Cortes Status ED Status: Left Department Discharge Information Discharge Date/Time: 01/06/18 01:30
[2018-01-05 20:04] LABS: Baso # (Auto) 0.1 th/mm3 (0.0-0.2); Baso % (Auto) 1.2 % (0.0-2.0); Eos # (Auto) 0.3 th/mm3 (0.0-0.4); Eos % (Auto) 4.3 % (0.0-4.0); Hematocrit 32.2 % (35.0-46.0); Hemoglobin 11.4 gm/dL (11.6-15.3); Lymph # (Auto) 1.5 th/mm3 (1.0-4.8); Lymph % (Auto) 23.5 % (9.0-44.0); Mean Corpuscular HGB Conc 35.5 % (32.0-36.0); Mean Corpuscular Hemoglobin 39.3 pg (27.0-34.0); Mean Corpuscular Volume 110.4 fL (80.0-100.0); Mean Platelet Volume 7.7 fL (7.0-11.0); Mono # (Auto) 0.4 th/mm3 (0.0-0.9); Neut # (Auto) 4.3 th/mm3 (1.8-7.7); Platelet Count 205 th/mm3 (150-450); Red Blood Count 2.91 mil/mm3 (4.00-5.30); Red Cell Distribution Width 14.4 % (11.6-17.2); White Blood Count 6.6 th/mm3 (4.0-11.0)
[2018-01-05 20:11] LABS: Activated Partial Thrombo Time 24.3 sec (24.3-30.1); Prothrombin Time 10.6 sec (9.8-11.6)
[2018-01-05 20:13] LABS: Albumin 3.5 g/dL (3.4-5.0); Anion Gap 15 meq/L (5-15); Aspartate Aminotransferase 69 U/L (15-37); Blood Urea Nitrogen 15 mg/dL (7-18); Calcium 8.9 mg/dL (8.5-10.1); Carbon Dioxide 20.1 meq/L (21.0-32.0); Chloride 103 meq/L (98-107); Glomerular Filtration Rate 49 mL/min (>89); Glucose,Random 87 mg/dL (74-106); Lipase 87 U/L (73-393); Potassium 4.1 meq/L (3.5-5.1); Sodium 138 meq/L (136-145)
[2018-01-05 20:14] LABS: Alanine Aminotransferase 26 U/L (10-53)
[2018-01-05 20:16] LABS: Alkaline Phosphatase 136 U/L (45-117); Total Protein 7.3 g/dL (6.4-8.2)
--- NOTE | 2018-01-05 21:49 | CT ---
EXAM DATE: 01/05/2018 9:22 PM EDT AGE/SEX: 57 years / Female INDICATIONS: Abdominal pain. Diarrhea. Bloody stool. CLINICAL DATA: This is the patient's initial encounter. Patient reports that signs and symptoms have been present for 3 days and indicates a pain score of 10/10. MEDICAL/SURGICAL HISTORY: Carcinoma, breast. Cholecystectomy. Hysterectomy. ORAL CONTRAST: No oral contrast ingested. RADIATION DOSE: 5.0 CTDI (mGy) COMPARISON: No prior exams available for comparison. TECHNIQUE: Multiple contiguous axial images were obtained through the abdomen and pelvis following b olus infusion of 70 ml Omnipaque 350 (iohexol) nonionic water-soluble contrast as a single exam dos e. No oral contrast ingested. Using automated exposure control and adjustment of the mA and/or kV ac cording to patient size, radiation dose was kept as low as reasonably achievable to obtain optimal di agnostic quality images. DICOM format image data is available electronically for review and comparis on. FINDINGS: Lower Lungs: The visualized lower lungs are clear. Liver: There is diffuse decreased attenuation to the liver. No focal hepatic lesions are seen. Patien t is status post cholecystectomy. Common bile duct is dilated measuring 1.1 cm likely reflecting a re servoir phenomenon following cholecystectomy. Spleen: Homogeneous density without enlargement. Pancreas: Unremarkable without mass or calcification. Kidneys: Normal in size and shape. No evidence of mass or hydronephrosis. Adrenal Glands: Unremarkable. Aorta: The aorta and proximal iliac vessels are grossly unremarkable without aneurysmal dilation. Bowel/Mesentery: There is a mild hiatal hernia. There is thickening of the colon particularly in the descending and sigmoid regions and the rectum. Surrounding inflammatory change is not seen. There ar e some scattered colonic diverticula. There appears to be some thickening of the ascending colon. Abdominal Wall: Intact. Retroperitoneum: No evidence of adenopathy in the retrocrural, para-aortic, or deep pelvic regions. Bladder: Contours are smooth. Reproductive Organs: The patient is status post hysterectomy. Inguinal: The inguinal region is unremarkable without evidence of adenopathy. Bony Structures: Unremarkable. CONCLUSION: 1. Thickening of the colon including the descending colon, sigmoid, and rectum and ascending colon l ikely related to colitis given the distribution. 2. Hepatic steatosis. 3. Mild hiatal hernia. Electronically signed by: Daniel Mcmanus MD 01/05/2018 9:48 PM EDT
[2018-01-05] MEDS ORDERED: Ciprofloxacin 400 MG/200 ML 400 MG/200 ML PIGGYBACK IV.SIG ONE (21:51)
[2018-01-05] MEDS ORDERED: Vancomycin Inj 1 GM/200 ML PIGGYBACK IV.SIG ONE (21:59)
[2018-01-05] MEDS ORDERED: Acetaminophen 325 MG Tablet PO PRN (22:58)
[2018-01-05] MEDS ORDERED: HYDROmorphone PF Inj 2 MG/ML Vial IV.PUSH PRN (23:07)
--- NOTE | 2018-01-05 23:34 | XR ---
EXAM DATE: 01/05/2018 12:00 AM EDT AGE/SEX: 57 years / Female INDICATIONS: Nausea, vomiting, diarrhea, fever. CLINICAL DATA: This is the patient's initial encounter. Patient reports that signs and symptoms have been present for 1 week and indicates a pain score of 0/10. MEDICAL/SURGICAL HISTORY: Carcinoma, breast. Hysterectomy. Cholecystectomy. Tonsillectomy. R ight side lumpectomy. COMPARISON: No prior exams available for comparison. FINDINGS: A single AP view of the chest demonstrates the lungs to be symmetrically aerated without evidence of mass, infiltrate or effusion. The cardiomediastinal contours are unremarkable. Osseous structures a re intact. CONCLUSION: Negative examination. Electronically signed by: Sanchez Patel MD 01/05/2018 11:33 PM EDT
[2018-01-06] MEDS: Gabapentin 300 MG Capsule PO SCH ×2 (00:02→20:10)
--- NOTE | 2018-01-06 01:08 | XR ---
EXAM DATE: 01/06/2018 8:00 AM EDT AGE/SEX: 57 years / Female INDICATIONS: Nausea, vomiting, diarrhea, abdominal pain. CLINICAL DATA: This is the patient's subsequent encounter. Patient reports that signs and symptoms h ave been present for 1 week and indicates a pain score of 10/10. MEDICAL/SURGICAL HISTORY: Carcinoma, breast. Hysterectomy. Cholecystectomy. Tonsillectomy. r ight side lumpectomy. COMPARISON: No prior exams available for comparison. FINDINGS: The abdominal bowel gas pattern is normal. No abnormal masses, calcifications, or organomegaly is s een. The osseous structures are unremarkable. CONCLUSION: No acute findings. Residual contrast in renal collecting system and bladder. Electronically signed by: Sanchez Patel MD 01/06/2018 1:06 AM EDT
[2018-01-06 05:26] LABS: Baso # (Auto) 0.1 th/mm3 (0.0-0.2); Baso % (Auto) 0.8 % (0.0-2.0); Eos # (Auto) 0.1 th/mm3 (0.0-0.4); Eos % (Auto) 0.6 % (0.0-4.0); Hematocrit 28.6 % (35.0-46.0); Hemoglobin 9.7 gm/dL (11.6-15.3); Lymph # (Auto) 0.7 th/mm3 (1.0-4.8); Lymph % (Auto) 8.1 % (9.0-44.0); Mean Corpuscular HGB Conc 34.1 % (32.0-36.0); Mean Corpuscular Hemoglobin 37.8 pg (27.0-34.0); Mean Corpuscular Volume 110.9 fL (80.0-100.0); Mean Platelet Volume 7.9 fL (7.0-11.0); Mono # (Auto) 0.5 th/mm3 (0.0-0.9); Mono % (Auto) 5.8 % (0.0-8.0); Neut # (Auto) 7.6 th/mm3 (1.8-7.7); Neut % (Auto) 84.7 % (16.0-70.0); Platelet Count 164 th/mm3 (150-450); Red Blood Count 2.58 mil/mm3 (4.00-5.30); Red Cell Distribution Width 14.8 % (11.6-17.2); White Blood Count 8.9 th/mm3 (4.0-11.0)
[2018-01-06 05:56] LABS: Carbon Dioxide 22.6 meq/L (21.0-32.0); Chloride 107 meq/L (98-107); Potassium 4.6 meq/L (3.5-5.1); Sodium 143 meq/L (136-145)
[2018-01-06 05:57] LABS: Alanine Aminotransferase 24 U/L (10-53); Alkaline Phosphatase 139 U/L (45-117); Anion Gap 13 meq/L (5-15); Aspartate Aminotransferase 76 U/L (15-37); Blood Urea Nitrogen 13 mg/dL (7-18); Calcium 7.7 mg/dL (8.5-10.1); Glomerular Filtration Rate 60 mL/min (>89); Glucose,Random 90 mg/dL (74-106); Lipase 50 U/L (73-393); Total Protein 6.1 g/dL (6.4-8.2)
[2018-01-06] MEDS: KCL 20 mEq/NACL 0.45% Inj 1,000 ML IV.CONT SCH ×3 (08:35→17:30)
[2018-01-06] MEDS: Anastrozole 1 MG Tablet PO SCH (08:40)
--- NOTE | 2018-01-06 11:28 | P.HP ---
<Johana Jeter W - Last Filed: 01/06/18 11:30> History of Present Illness Primary Care Physician: Ivana Paul MD Chief Complaint: diarrhea History of Present Illness: This is a pleasant 57 y/o F with h/o ETOH abuse, anxiety, endometriosis, and R breast CA who follows with Dr. Noy Garrett for stage I ER-positive right breast cancer status post surgery with low Oncotype DX. She had radiation currently taking Arimidex. Patient presented to the ED for evaluation of lower abdominal pain with nausea vomiting and low-grade diarrhea. Per patient she has had this for 3 days. Per patient progressively getting worse. She can't keep anything down. She reports that she had a colonoscopy that was done on Monday of last week. She was put on Protonix and ever since she is been having the symptoms. Patient more aggressive the past 3 days. She has not seen her GI doctor for this. Her primary care doctor recommended that she go to the ER. She was told she had diverticulosis by her GI doctor. She follows with Dr. Mane. She denies any urinary symptoms. Per patient the pain is 10 out of 10 and gets worse when she has to have a bowel movement. Per patient she has bowel movement with blood and stool. States the last time she threw up was 2 days ago. She has been feeling nauseous since. Past Medical History - Anxiety - endometriosis - right breast cancer - abnormal mammogram 11/2015 - right lumpectomy December 2015 - s/p radiation therapy - etoh abuse Past Surgical History Hysterectomy(complete) Tonsillectomy Right breast lumpectomy in 2015 Bilateral breast biopsy in 2015 cholecystectomy Colonoscopy in 2007 Family History reviewed and Non-contributory Social History ETOH use 1 glass of wine per day per patient, per 2-3 glasses of wine per day Denies tobacco use per day - Diagnosis (1) Clostridium difficile infection PMFSH - History History Provided By: Patient, Family Member - Medical History Medical History: Medical History (Last Updated 01/05/18 @ 21:46 by Essence Spencer) Breast cancer Depression History of hysterectomy Hx of radiation therapy Normal colonoscopy Recurrent UTI - Surgical History Surgical History: Surgical History (Last Updated 01/05/18 @ 21:46 by Essence Spencer) H/O lumpectomy - Tobacco History Second Hand Smoke Exposure: No Smoking Status: Former smoker - Alcohol History How Often Do You Have a Drink Containing Alcohol: 2 to 3 times a week - Substance Use History Substance History: No History of Abuse - Travel History Recent Travel in the [place] Within the Last 8 Weeks: No Recent Travel Out of the Country Within the Last 8 Weeks: No - Immunization History Tetanus Immunization: <5 Years Medications and Allergies Allergies Allergy/AdvReac Type Severity Reaction Status Date / Time codeine Allergy Intermediate Itching Verified 01/06/18 08:15 erythromycin base Allergy Intermediate Itching Verified 01/06/18 08:15 penicillin G Allergy Intermediate HIVES Verified 01/06/18 08:15 epinephrine Allergy Mild Seizures Verified 01/06/18 08:15 Home Medications Medication Instructions Recorded Confirmed Type anastrozole 1 mg PO DAILY 01/05/18 01/05/18 History diclofenac sodium 75 mg PO BID 01/05/18 01/05/18 History escitalopram oxalate 20 mg PO DAILY 01/05/18 01/05/18 History gabapentin 300 mg PO HS 01/05/18 01/05/18 History Active Medications: Active Medications Acetaminophen (Tylenol) 650 mg PO Q4H PRN PRN Reason: Temp > 100.4 Hydrocodone Bitart/Acetaminophen (Robins 5/325) 1 tab PO Q4H PRN PRN Reason: pain 1 - 10, Last Admin: 01/06/18 08:39 Dose: 1 tab Anastrozole (Arimidex) 1 mg PO DAILY [facility] Last Admin: 01/06/18 08:40 Dose: 1 mg Escitalopram Oxalate (Lexapro) 20 mg PO DAILY [facility] Last Admin: 01/06/18 08:40 Dose: 20 mg Gabapentin (Neurontin) [address] [facility] Last Admin: 01/06/18 00:02 Dose: Not Given Hydromorphone HCl (Dilaudid Pf Inj) 0.5 mg IV.PUSH Q4H PRN PRN Reason: BREAKTHROUGH PAIN Potassium Chloride/Sodium Chloride (Potassium Chlor 20 Meq/Nacl 0.45% Inj) 1, 000 mls @ 125 mls/hr IV.CONT .Q8H [facility] Last Admin: 01/06/18 08:35 Dose: 125 mls/hr Metoclopramide HCl (Reglan Inj) 10 mg IV.PUSH Q6HR PRN; Protocol PRN Reason: NAUSEA OR VOMITING Last Admin: 01/06/18 08:35 Dose: 10 mg Temazepam (Restoril) 15 mg PO HS PRN PRN Reason: INSOMNIA Vancomycin HCl (Vancomycin Po) 125 mg PO QID [facility] Stop: 01/19/18 22:59 Last Admin: 01/06/18 00:01 Dose: 125 mg Exam Vital signs: Vital Signs 01/05/18 18:04 01/05/18 21:43 01/05/18 22:45 Temperature 98.5 F 98.7 F Pulse Rate 86 100 H 100 H Respiratory Rate 16 16 16 Blood Pressure 123/75 115/64 118/69 Pulse Oximetry 97 96 97 01/06/18 08:00 01/06/18 09:00 Temperature 98.8 F Pulse Rate 109 H 107 H Respiratory Rate 16 Blood Pressure 139/77 Pulse Oximetry 96 Intake & Output 01/05/18 01/06/18 01/06/18 18:59 06:59 18:59 Intake Total 1150 / 1150 1000 / 1000 Balance 1150 / 1150 1000 / 1000 Weight 47.627 kg 47.627 kg Intake: IV 1000 / 1000 1000 / 1000 Potassium Chlor 20 mEq/NACL 0. 1000 / 1000 45% Inj 1,000 ML @ 125 mls/hr IV.CONT .Q8H [facility] Rx#:[id number] NS Inj 1,000 ML @ Wide Open IV. 1000 / 1000 SIG BOLUS ONE Rx#:[id number] Oral 150 / 150 Other: # Incontinent Voids 6 # Bowel Movements 1 Weight On Admission 47.627 kg Narrative: GENERAL: This is a well-nourished, well-developed patient, in no apparent distress. CARDIOVASCULAR: slight tachycardia RESPIRATORY: Clear to auscultation. Breath sounds equal bilaterally. GASTROINTESTINAL: Abdomen soft, mild defuse tenderness, nondistended. hyperactive bowel sounds MUSCULOSKELETAL: Extremities without clubbing, cyanosis, or edema. NEURO: Alert & Oriented x4 to person, place, time, situation. Moves all ext x4 Results - Labs CBC & Chem 7: 01/06/18 04:45 01/06/18 04:45 Labs: Laboratory Results - last 24 hr 01/05/18 01/05/18 01/05/18 19:45 19:45 19:45 WBC 6.6 RBC 2.91 L Hgb 11.4 L Hct 32.2 L MCV 110.4 H MCH 39.3 H MCHC 35.5 RDW 14.4 Plt Count 205 MPV 7.7 Neut % (Auto) 65.0 Lymph % (Auto) 23.5 Moca % (Auto) 6.0 Eos % (Auto) 4.3 H Baso % (Auto) 1.2 Neut # (Auto) 4.3 Lymph # (Auto) 1.5 Moca # (Auto) 0.4 Eos # (Auto) 0.3 Baso # (Auto) 0.1 WBC Differential . Differential Comment Auto diff final PT 10.6 INR 1.0 APTT 24.3 Sodium 138 Potassium 4.1 Chloride 103 Carbon Dioxide 20.1 L Anion Gap 15 BUN 15 Creatinine 1.15 H Estimated GFR 49 L Random Glucose 87 Calcium 8.9 Total Bilirubin 0.7 AST 69 H ALT 26 Alkaline Phosphatase 136 H Total Protein 7.3 Albumin 3.5 Lipase 87 Stool C.difficile Ag Stool C.difficile Toxin Stl C.difficile DNA Amp St C. diff Tox Epid 027 Blood Type Antibody Screen 01/05/18 01/05/18 01/06/18 19:45 19:45 04:45 WBC 8.9 RBC 2.58 L Hgb 9.7 L Hct 28.6 L MCV 110.9 H MCH 37.8 H MCHC 34.1 RDW 14.8 Plt Count 164 MPV 7.9 Neut % (Auto) 84.7 H Lymph % (Auto) 8.1 L Moca % (Auto) 5.8 Eos % (Auto) 0.6 Baso % (Auto) 0.8 Neut # (Auto) 7.6 Lymph # (Auto) 0.7 L Moca # (Auto) 0.5 Eos # (Auto) 0.1 Baso # (Auto) 0.1 WBC Differential . Differential Comment Auto diff final PT INR APTT Sodium Potassium Chloride Carbon Dioxide Anion Gap BUN Creatinine Estimated GFR Random Glucose Calcium Total Bilirubin AST ALT Alkaline Phosphatase Total Protein Albumin Lipase Stool C.difficile Ag Positive H Stool C.difficile Toxin Negative Stl C.difficile DNA Amp Positive H St C. diff Tox Epid 027 Negative Blood Type O Positive Antibody Screen Negative 01/06/18 04:45 WBC RBC Hgb Hct MCV MCH MCHC RDW Plt Count MPV Neut % (Auto) Lymph % (Auto) Moca % (Auto) Eos % (Auto) Baso % (Auto) Neut # (Auto) Lymph # (Auto) Moca # (Auto) Eos # (Auto) Baso # (Auto) WBC Differential Differential Comment PT INR APTT Sodium 143 Potassium 4.6 Chloride 107 Carbon Dioxide 22.6 Anion Gap 13 BUN 13 Creatinine 0.97 Estimated GFR 60 L Random Glucose 90 Calcium 7.7 L D Total Bilirubin 1.0 AST 76 H ALT 24 Alkaline Phosphatase 139 H Total Protein 6.1 L D Albumin 3.0 L Lipase 50 L Stool C.difficile Ag Stool C.difficile Toxin Stl C.difficile DNA Amp St C. diff Tox Epid 027 Blood Type Antibody Screen - Imaging Impressions Chest X-Ray 01/05/18 00:00 CONCLUSION: Negative examination. Abdomen/Pelvis CT 01/05/18 21:00 CONCLUSION: 1. Thickening of the colon including the descending colon, sigmoid, and rectum and ascending colon likely related to colitis given the distribution. 2. Hepatic steatosis. 3. Mild hiatal hernia. Abdomen X-Ray 01/06/18 08:00 CONCLUSION: No acute findings. Residual contrast in renal collecting system and bladder. Caprini VTE Risk Assessment Caprini VTE Risk Assessment: No/Low Risk (score <= 1) Caprini Risk Assessment Model: Point Value = 1 Point Value = 2 Point Value = 3 Point Value = 5 Age 41-60 Minor surgery BMI > 25 kg/m2 Swollen legs Varicose veins or History of unexplained or recurrent spontaneous Oral contraceptives or hormone replacement Sepsis (< 1 month) Serious lung disease, including pneumonia (< 1 month) Abnormal pulmonary function Acute myocardial infarction Congestive heart failure (< 1 month) History of inflammatory bowel disease Medical patient at bed rest Age 61-74 Arthroscopic surgery Major open surgery (> 45 min) Laparoscopic surgery (> 45 min) Malignancy Confined to bed (> 72 hours) Immobilizing plaster cast Central venous access Age >= 75 History of VTE Family history of VTE Factor V Leiden Prothrombin [id number] Lupus anticoagulant Anticardiolipin antibodies Elevated serum homocysteine Heparin-induced thrombocytopenia Other congenital or acquired thrombophilia Stroke (< 1 month) Elective arthroplasty Hip, pelvis, or leg fracture Acute spinal cord injury (< 1 month) Prophylaxis Regimen: Total Risk Factor Score Risk Level Prophylaxis Regimen 0-1 Low Early ambulation 2 Moderate Order ONE of the following: *Sequential Compression Device (SCD) *Heparin 5000 units SQ BID 3-4 Higher Order ONE of the following medications: *Heparin 5000 units SQ TID *Enoxaparin/Lovenox 40 mg SQ daily (WT < 150 kg, CrCl > 30 mL/min) *Enoxaparin/Lovenox 30 mg SQ daily (WT < 150 kg, CrCl > 10-29 mL/min) *Enoxaparin/Lovenox 30 mg SQ BID (WT < 150 kg, CrCl > 30 mL/min) AND/OR *Sequential Compression Device (SCD) 5 or more Highest Order ONE of the following medications: *Heparin 5000 units SQ TID (Preferred with Epidurals) *Enoxaparin/Lovenox 40 mg SQ daily (WT < 150 kg, CrCl > 30 mL/min) *Enoxaparin/Lovenox 30 mg SQ daily (WT < 150 kg, CrCl > 10-29 mL/min) *Enoxaparin/Lovenox 30 mg SQ BID (WT < 150 kg, CrCl > 30 mL/min) AND *Sequential Compression Device (SCD) Assessment and Plan - Assessment (1) Clostridium difficile infection Code(s): B96.89 - Other specified bacterial agents as the cause of diseases classified elsewhere Status: Acute Plan: This is a pleasant 57 y/o F with h/o ETOH abuse, anxiety, endometriosis, and R breast CA who follows with Dr. Noy Garrett for stage I ER-positive right breast cancer status post surgery with low Oncotype DX. She had radiation currently taking Arimidex. She reports that she had a colonoscopy that was done on Monday of last week. Patient has been having lower abdominal pain with nausea vomiting and diarrhea which is getting progressively worse over the last 3 days. C Difficile colitis Chest X-Ray Negative examination. Abdomen/Pelvis CT 1. Thickening of the colon including the descending colon, sigmoid, and rectum and ascending colon likely related to colitis given the distribution. 2. Hepatic steatosis. 3. Mild hiatal hernia. Abdomen X-Ray No acute findings. Residual contrast in renal collecting system and bladder. C Difficile positive patient started on PO Vancomycin Zofran as needed for IVF liquid diet for now Hx R breast CA R breast CA who follows with Dr. Noy Garrett for stage I ER-positive right breast cancer status post surgery with low Oncotype DX. She had radiation currently taking Arimidex. Continue patient's home Arimidex Anxiety/Depression Continue patient's home Lexapro 20 mg PO daily SCDs for DVT prophylaxis <Geo Cortes - Last Filed: 01/07/18 12:31> History of Present Illness Primary Care Physician: Ivana Paul MD - Diagnosis (1) Clostridium difficile infection Inpatient Certification: I certify that the inpatient services were ordered in accordance with Medicare regulations governing the order. This includes certification that hospital inpatient services are reasonable and necessary and in the case of services not specified as inpatient-only under 42 CFR 419.22(n), that they are appropriately provided as inpatient services in accordance to with the 2-midnight benchmark under 43 CFR 412.3(e) [facility] - Medical History Medical History: Medical History (Last Updated 01/05/18 @ 21:46 by Essence Spencer) Breast cancer Depression History of hysterectomy Hx of radiation therapy Normal colonoscopy Recurrent UTI - Surgical History Surgical History: Surgical History (Last Updated 01/05/18 @ 21:46 by Essence Spencer) H/O lumpectomy Medications and Allergies Active Medications: Active Medications Acetaminophen (Tylenol) 650 mg PO Q4H PRN PRN Reason: Temp > 100.4 Last Admin: 01/07/18 05:48 Dose: 650 mg Hydrocodone Bitart/Acetaminophen (Robins 5/325) 1 tab PO Q4H PRN PRN Reason: pain 1 - 10, Last Admin: 01/06/18 17:47 Dose: 1 tab Anastrozole (Arimidex) 1 mg PO DAILY [facility] Last Admin: 01/07/18 09:55 Dose: 1 mg Escitalopram Oxalate (Lexapro) 20 mg PO DAILY [facility] Last Admin: 01/07/18 09:55 Dose: 20 mg Gabapentin (Neurontin) 300 mg PO HS [facility] Last Admin: 01/06/18 20:10 Dose: 300 mg Hydromorphone HCl (Dilaudid Pf Inj) 0.5 mg IV.PUSH Q4H PRN PRN Reason: BREAKTHROUGH PAIN Last Admin: 01/07/18 00:51 Dose: 0.5 mg Potassium Chloride/Sodium Chloride (Potassium Chlor 20 Meq/Nacl 0.45% Inj) 1, 000 mls @ 55 mls/hr IV.CONT .[id number] [facility] Last Admin: 01/07/18 10:48 Dose: 125 mls/hr Lorazepam (Ativan Inj) 1 mg IV.PUSH Q4H PRN PRN Reason: ANXIETY AND/OR AGITATION Metoclopramide HCl (Reglan Inj) 10 mg IV.PUSH Q6HR PRN; Protocol PRN Reason: NAUSEA OR VOMITING Last Admin: 01/06/18 17:47 Dose: 10 mg Temazepam (Restoril) 15 mg PO HS PRN PRN Reason: INSOMNIA Vancomycin HCl (Vancomycin Po) 125 mg PO QID [facility] Stop: 01/19/18 22:59 Last Admin: 01/07/18 09:55 Dose: 125 mg Exam Vital signs: Vital Signs 01/06/18 12:50 01/06/18 15:55 01/06/18 18:29 Temperature 100.0 F H 100.3 F H Pulse Rate 106 H 101 H 95 H Respiratory Rate 16 18 Blood Pressure 143/76 H Pulse Oximetry 93 L 97 01/06/18 18:46 01/06/18 19:58 01/06/18 20:28 Temperature 100.0 F H Pulse Rate 99 H 94 H Respiratory Rate 20 Blood Pressure 142/82 H 136/85 Pulse Oximetry 98 01/07/18 00:00 01/07/18 00:41 01/07/18 03:55 Temperature 100.0 F H 99.3 F Pulse Rate 92 H 94 H 98 H Respiratory Rate 18 18 Blood Pressure 138/84 142/87 H Pulse Oximetry 98 97 01/07/18 08:00 Temperature 100.2 F H Pulse Rate Respiratory Rate 16 Blood Pressure 131/86 Pulse Oximetry 100 Intake & Output 01/06/18 01/07/18 01/07/18 18:59 06:59 18:59 Intake Total 2250 / 2250 1120 / 1120 1000 / 1000 Balance 2250 / 2250 1120 / 1120 1000 / 1000 Weight 49.5 kg Intake: IV 1999 1000 / 1000 1000 / 1000 Potassium Chlor 20 mEq/NACL 0. 1999 / 1999 1000 / 1000 1000 / 1000 45% Inj 1,000 ML @ 125 mls/hr IV.CONT .Q8H [facility] Rx#:[id number] Oral 250 / 250 120 / 120 Other: # Voids 1 # Urine Diapers 1 8 Date of Last Bowel Movement 01/06/18 01/07/18 # Bowel Movements 1 4 # Incontinent Bowel Movements 1 Results - Labs CBC & Chem 7: 01/06/18 04:45 01/06/18 04:45 Labs: Laboratory Results - last 24 hr 01/06/18 23:16 Urine Color Yellow Urine Clarity Hazy H Urine pH 6.0 Ur Specific [place] 1.008 Urine Protein 30 H Urine Glucose (UA) Negative Urine Ketones 20 Urine Occult Blood Large H Urine Nitrate Negative Urine Bilirubin Negative Urine Urobilinogen Less than 2 Ur Leukocyte Esterase Large H Urine RBC 6 H Urine WBC 121 H Ur Squamous Epith Cells <1 Ur Renal Epithelial Cell 2 Urine Bacteria Rare H Micro UA Comment Culture indicated Ur Microscopic Review Not Reportable Urine Culture Comments Culture indicated Caprini VTE Risk Assessment Caprini Risk Assessment Model: Point Value = 1 Point Value = 2 Point Value = 3 Point Value = 5 Age 41-60 Minor surgery BMI > 25 kg/m2 Swollen legs Varicose veins or History of unexplained or recurrent spontaneous Oral contraceptives or hormone replacement Sepsis (< 1 month) Serious lung disease, including pneumonia (< 1 month) Abnormal pulmonary function Acute myocardial infarction Congestive heart failure (< 1 month) History of inflammatory bowel disease Medical patient at bed rest Age 61-74 Arthroscopic surgery Major open surgery (> 45 min) Laparoscopic surgery (> 45 min) Malignancy Confined to bed (> 72 hours) Immobilizing plaster cast Central venous access Age >= 75 History of VTE Family history of VTE Factor V Leiden Prothrombin [id number] Lupus anticoagulant Anticardiolipin antibodies Elevated serum homocysteine Heparin-induced thrombocytopenia Other congenital or acquired thrombophilia Stroke (< 1 month) Elective arthroplasty Hip, pelvis, or leg fracture Acute spinal cord injury (< 1 month) Prophylaxis Regimen: Total Risk Factor Score Risk Level Prophylaxis Regimen 0-1 Low Early ambulation 2 Moderate Order ONE of the following: *Sequential Compression Device (SCD) *Heparin 5000 units SQ BID 3-4 Higher Order ONE of the following medications: *Heparin 5000 units SQ TID *Enoxaparin/Lovenox 40 mg SQ daily (WT < 150 kg, CrCl > 30 mL/min) *Enoxaparin/Lovenox 30 mg SQ daily (WT < 150 kg, CrCl > 10-29 mL/min) *Enoxaparin/Lovenox 30 mg SQ BID (WT < 150 kg, CrCl > 30 mL/min) AND/OR *Sequential Compression Device (SCD) 5 or more Highest Order ONE of the following medications: *Heparin 5000 units SQ TID (Preferred with Epidurals) *Enoxaparin/Lovenox 40 mg SQ daily (WT < 150 kg, CrCl > 30 mL/min) *Enoxaparin/Lovenox 30 mg SQ daily (WT < 150 kg, CrCl > 10-29 mL/min) *Enoxaparin/Lovenox 30 mg SQ BID (WT < 150 kg, CrCl > 30 mL/min) AND *Sequential Compression Device (SCD) Assessment and Plan - Assessment (1) Clostridium difficile infection Code(s): B96.89 - Other specified bacterial agents as the cause of diseases classified elsewhere Status: Acute - Attending Attestation Patient examined. Assessment and plan formulated with Johana ZIEGLER I agree with the above. Pt started on PO vancomycin. anticipate 3-4 day hospitalization IVF repeat labs in AM supportive care.
[2018-01-07 00:23] LABS: Bacteria,Urine Rare /hpf; Bilirubin,Urine Negative (Negative); Clarity,Urine Hazy (Clear); Color,Urine Yellow (Yellw/Straw); Glucose,Urine (UA) Negative (Negative); Leukocyte Esterase,Urine Large (Negative); Nitrite,Urine Negative (Negative); Renal Epithelial Cells,Urine 2 /hpf; Specific Gravity,Urine 1.008 (1.002-1.035); Squamous Epithelial Cell,Urine <1 /hpf (0-5)
[2018-01-07] MEDS: KCL 20 mEq/NACL 0.45% Inj 1,000 ML IV.CONT SCH ×3 (03:54→18:47)
[2018-01-07] MEDS: Anastrozole 1 MG Tablet PO SCH (09:55)
--- NOTE | 2018-01-07 12:36 | P.PNIM ---
Subjective Interval history: Pt feels better today. Abdominal pain improved. Rate of diarrhea has decreased. Pt reports 3 liquid stool for this AM. Physical Exam Vital signs: 01/07/18 08:00 Temperature 100.2 F H Pulse Rate Respiratory Rate 16 Blood Pressure 131/86 Pulse Oximetry 100 Results - Labs CBC & Chem 7: 01/06/18 04:45 01/06/18 04:45 Assessment and Plan - Assessment (1) Clostridium difficile infection Code(s): B96.89 - Other specified bacterial agents as the cause of diseases classified elsewhere Status: Acute Plan: This is a pleasant 57 y/o F with h/o ETOH abuse, anxiety, endometriosis, and R breast CA who follows with Dr. Noy Garrett for stage I ER-positive right breast cancer status post surgery with low Oncotype DX. She had radiation currently taking Arimidex. She reports that she had a colonoscopy that was done on Monday of last week. Patient has been having lower abdominal pain with nausea vomiting and diarrhea which is getting progressively worse over the last 3 days. C Difficile colitis Chest X-Ray Negative examination. Abdomen/Pelvis CT 1. Thickening of the colon including the descending colon, sigmoid, and rectum and ascending colon likely related to colitis given the distribution. 2. Hepatic steatosis. 3. Mild hiatal hernia. Abdomen X-Ray No acute findings. Residual contrast in renal collecting system and bladder. C Difficile positive patient started on PO Vancomycin (01/06 - present) Zofran as needed for IVF, decrease rate to 55ml/hour liquid diet for now - consult GI - anticipate d/c in 2-3 days Hx R breast CA R breast CA who follows with Dr. Noy Garrett for stage I ER-positive right breast cancer status post surgery with low Oncotype DX. She had radiation currently taking Arimidex. Continue patient's home Arimidex Anxiety/Depression Continue patient's home Lexapro 20 mg PO daily SCDs for DVT prophylaxis
--- NOTE | 2018-01-07 12:59 | P.CONGI ---
History of Present Illness Consult date: 01/07/18 Chief complaint: acute colitis, instractable nausea and vomit, History of Present Illness: This is a 57 y/o F with h/o ETOH abuse, anxiety, endometriosis, and R breast CA who follows with Dr. Noy Garrett who presented to the ED for evaluation of lower abdominal pain with nausea vomiting and diarrhea for few days. Stools studies came back (+) for C-diff. This is first episode. Denies recent abx or sick contact. Pt had EGD/dil/colonoscopy on 12/26/17 which revealed esophagitis, gastritis, duodenitis, diverticulosis and hemorrhoids. She was put on Protonix and ever since she is been having the symptoms. Symptoms became progressively worse, pain is 10 out of 10 and gets worse when she has to have a bowel movement. patient had one bowel movement with blood. Today she is doing good, tolerating diet okay, no nausea or vomiting but cont. to have loose stools. Was started on vanco Po. Abdomen/Pelvis CT 01/05/18 Thickening of the colon including the descending colon, sigmoid, and rectum and ascending colon likely related to colitis given the distribution. Hepatic steatosis. Mild hiatal hernia. <William Vernon - Last Filed: 01/07/18 13:00> Review of Systems All other systems reviewed negative except as stated in HPI <William Vernon - Last Filed: 01/07/18 13:00> PMFSH - History History Provided By: Patient, Family Member - Medical History Medical History: Medical History (Last Updated 01/05/18 @ 21:46 by Essence Spencer) Breast cancer Depression History of hysterectomy Hx of radiation therapy Normal colonoscopy Recurrent UTI - Surgical History Surgical History: Surgical History (Last Updated 01/05/18 @ 21:46 by Essence Spencer) H/O lumpectomy - Tobacco History Second Hand Smoke Exposure: No Smoking Status: Former smoker - Alcohol History How Often Do You Have a Drink Containing Alcohol: 2 to 3 times a week - Substance Use History Substance History: No History of Abuse - Travel History Recent Travel in the [facility] Within the Last 8 Weeks: No Recent Travel Out of the Country Within the Last 8 Weeks: No - Immunization History Tetanus Immunization: <5 Years <William Vernon - Last Filed: 01/07/18 13:00> - Medical History Medical History: Medical History (Last Updated 01/05/18 @ 21:46 by Essence Spencer) Breast cancer Depression History of hysterectomy Hx of radiation therapy Normal colonoscopy Recurrent UTI - Surgical History Surgical History: Surgical History (Last Updated 01/05/18 @ 21:46 by Essence Sepncer) H/O lumpectomy <Shannen Mane - Last Filed: 01/07/18 14:15> Medications and Allergies Active Medications: Active Medications Acetaminophen (Tylenol) 650 mg PO Q4H PRN PRN Reason: Temp > 100.4 Last Admin: 01/07/18 05:48 Dose: 650 mg Hydrocodone Bitart/Acetaminophen ([place] 5/325) 1 tab PO Q4H PRN PRN Reason: pain 1 - 10, Last Admin: 01/06/18 17:47 Dose: 1 tab Anastrozole (Arimidex) 1 mg PO DAILY [facility] Last Admin: 01/07/18 09:55 Dose: 1 mg Escitalopram Oxalate (Lexapro) 20 mg PO DAILY [facility] Last Admin: 01/07/18 09:55 Dose: 20 mg Gabapentin (Neurontin) 300 mg PO HS [facility] Last Admin: 01/06/18 20:10 Dose: 300 mg Hydromorphone HCl (Dilaudid Pf Inj) 0.5 mg IV.PUSH Q4H PRN PRN Reason: BREAKTHROUGH PAIN Last Admin: 01/07/18 00:51 Dose: 0.5 mg Potassium Chloride/Sodium Chloride (Potassium Chlor 20 Meq/Nacl 0.45% Inj) 1, 000 mls @ 55 mls/hr IV.CONT .[id number] [facility] Last Admin: 01/07/18 10:48 Dose: 125 mls/hr Lorazepam (Ativan Inj) 1 mg IV.PUSH Q4H PRN PRN Reason: ANXIETY AND/OR AGITATION Metoclopramide HCl (Reglan Inj) 10 mg IV.PUSH Q6HR PRN; Protocol PRN Reason: NAUSEA OR VOMITING Last Admin: 01/06/18 17:47 Dose: 10 mg Temazepam (Restoril) 15 mg PO HS PRN PRN Reason: INSOMNIA Vancomycin HCl (Vancomycin Po) 125 mg PO QID [facility] Stop: 01/19/18 22:59 Last Admin: 01/07/18 09:55 Dose: 125 mg <William Vernon - Last Filed: 01/07/18 13:00> Active Medications: Active Medications Acetaminophen (Tylenol) 650 mg PO Q4H PRN PRN Reason: Temp > 100.4 Last Admin: 01/07/18 05:48 Dose: 650 mg Hydrocodone Bitart/Acetaminophen ([place] 5/325) 1 tab PO Q4H PRN PRN Reason: pain 1 - 10, Last Admin: 01/06/18 17:47 Dose: 1 tab Anastrozole (Arimidex) 1 mg PO DAILY [facility] Last Admin: 01/07/18 09:55 Dose: 1 mg Escitalopram Oxalate (Lexapro) 20 mg PO DAILY [facility] Last Admin: 01/07/18 09:55 Dose: 20 mg Gabapentin (Neurontin) 300 mg PO HS [facility] Last Admin: 01/06/18 20:10 Dose: 300 mg Hydromorphone HCl (Dilaudid Pf Inj) 0.5 mg IV.PUSH Q4H PRN PRN Reason: BREAKTHROUGH PAIN Last Admin: 01/07/18 00:51 Dose: 0.5 mg Potassium Chloride/Sodium Chloride (Potassium Chlor 20 Meq/Nacl 0.45% Inj) 1, 000 mls @ 55 mls/hr IV.CONT .[id number] [facility] Last Admin: 01/07/18 10:48 Dose: 125 mls/hr Metronidazole/Sodium Chloride (Flagyl 500 Mg Inj) 100 mls @ 100 mls/hr IV.SIG Q8H [facility] Last Admin: 01/07/18 14:08 Dose: 100 mls/hr Lorazepam (Ativan Inj) 1 mg IV.PUSH Q4H PRN PRN Reason: ANXIETY AND/OR AGITATION Metoclopramide HCl (Reglan Inj) 10 mg IV.PUSH Q6HR PRN; Protocol PRN Reason: NAUSEA OR VOMITING Last Admin: 01/06/18 17:47 Dose: 10 mg Temazepam (Restoril) 15 mg PO HS PRN PRN Reason: INSOMNIA Vancomycin HCl (Vancomycin Po) 125 mg PO QID [facility] Stop: 01/19/18 22:59 Last Admin: 01/07/18 13:50 Dose: 125 mg <BratuCiroe - Last Filed: 01/07/18 14:15> Allergies Allergy/AdvReac Type Severity Reaction Status Date / Time codeine Allergy Intermediate Itching Verified 01/06/18 08:15 erythromycin base Allergy Intermediate Itching Verified 01/06/18 08:15 penicillin G Allergy Intermediate HIVES Verified 01/06/18 08:15 epinephrine Allergy Mild Seizures Verified 01/06/18 08:15 Home Medications Medication Instructions Recorded Confirmed Type anastrozole 1 mg PO DAILY 01/05/18 01/05/18 History diclofenac sodium 75 mg PO BID 01/05/18 01/05/18 History escitalopram oxalate 20 mg PO DAILY 01/05/18 01/05/18 History gabapentin 300 mg PO HS 01/05/18 01/05/18 History Exam Vital signs: Vital Signs 01/06/18 12:50 01/06/18 15:55 01/06/18 18:29 Temperature 100.0 F H 100.3 F H Pulse Rate 106 H 101 H 95 H Respiratory Rate 16 18 Blood Pressure 143/76 H Pulse Oximetry 93 L 97 01/06/18 18:46 01/06/18 19:58 01/06/18 20:28 Temperature 100.0 F H Pulse Rate 99 H 94 H Respiratory Rate 20 Blood Pressure 142/82 H 136/85 Pulse Oximetry 98 01/07/18 00:00 01/07/18 00:41 01/07/18 03:55 Temperature 100.0 F H 99.3 F Pulse Rate 92 H 94 H 98 H Respiratory Rate 18 18 Blood Pressure 138/84 142/87 H Pulse Oximetry 98 97 01/07/18 08:00 Temperature 100.2 F H Pulse Rate Respiratory Rate 16 Blood Pressure 131/86 Pulse Oximetry 100 Intake & Output 01/06/18 01/07/18 01/07/18 18:59 06:59 18:59 Intake Total 2250 / 2250 1120 / 1120 1000 / 1000 Balance 2250 / 2250 1120 / 1120 1000 / 1000 Weight 49.5 kg Intake: IV 1999 1000 / 1000 1000 / 1000 Potassium Chlor 20 mEq/NACL 0. 2000 / 1999 1000 / 1000 1000 / 1000 45% Inj 1,000 ML @ 125 mls/hr IV.CONT .Q8H [facility] Rx#:[id number] Oral 250 / 250 120 / 120 Other: # Voids 1 # Urine Diapers 1 8 Date of Last Bowel Movement 01/06/18 01/07/18 # Bowel Movements 1 4 # Incontinent Bowel Movements 1 - Constitutional no acute distress - Routine HEENT Exam Head: Present: normocephalic - Routine Neck Exam Present: supple - Routine Respiratory Exam Present: CTA bilaterally - Routine Cardiovascular Exam Present: RRR - Routine Abdominal Exam Present: soft, normoactive bowel sounds. Absent: tenderness, distended - Routine Skin Exam Present: intact, dry - Routine Neurological Exam Present: alert, oriented X3 <William Vernon - Last Filed: 01/07/18 13:00> Vital signs: Vital Signs 01/06/18 15:55 01/06/18 18:29 01/06/18 18:46 Temperature 100.3 F H Pulse Rate 101 H 95 H Respiratory Rate 18 Blood Pressure 142/82 H Pulse Oximetry 97 01/06/18 19:58 01/06/18 20:28 01/07/18 00:00 Temperature 100.0 F H 100.0 F H Pulse Rate 99 H 94 H 92 H Respiratory Rate 20 18 Blood Pressure 136/85 138/84 Pulse Oximetry 98 98 01/07/18 00:41 01/07/18 03:55 01/07/18 08:00 Temperature 99.3 F 100.2 F H Pulse Rate 94 H 98 H Respiratory Rate 18 16 Blood Pressure 142/87 H 131/86 Pulse Oximetry 97 100 01/07/18 12:50 Temperature 99.8 F H Pulse Rate 85 Respiratory Rate 16 Blood Pressure 140/82 Pulse Oximetry 100 Intake & Output 01/06/18 01/07/18 01/07/18 18:59 06:59 18:59 Intake Total 2250 / 2250 1120 / 1120 1000 / 1000 Balance 2250 / 2250 1120 / 1120 1000 / 1000 Weight 49.5 kg Intake: IV 1999 1000 / 1000 1000 / 1000 Potassium Chlor 20 mEq/NACL 0. 2000 / 1999 1000 / 1000 1000 / 1000 45% Inj 1,000 ML @ 125 mls/hr IV.CONT .Q8H [facility] Rx#:[id number] Oral 250 / 250 120 / 120 Other: # Voids 1 # Urine Diapers 1 8 Date of Last Bowel Movement 01/06/18 01/07/18 # Bowel Movements 1 4 # Incontinent Bowel Movements 1 <Shannen Mane - Last Filed: 01/07/18 14:15> Results - Labs CBC & Chem 7: 01/06/18 04:45 01/06/18 04:45 Labs: Laboratory Results - last 24 hr 01/06/18 23:16 Urine Color Yellow Urine Clarity Hazy H Urine pH 6.0 Ur Specific [place] 1.008 Urine Protein 30 H Urine Glucose (UA) Negative Urine Ketones 20 Urine Occult Blood Large H Urine Nitrate Negative Urine Bilirubin Negative Urine Urobilinogen Less than 2 Ur Leukocyte Esterase Large H Urine RBC 6 H Urine WBC 121 H Ur Squamous Epith Cells <1 Ur Renal Epithelial Cell 2 Urine Bacteria Rare H Micro UA Comment Culture indicated Ur Microscopic Review Not Reportable Urine Culture Comments Culture indicated - Imaging Chest X-Ray 01/05/18 00:00 CONCLUSION: Negative examination. Abdomen/Pelvis CT 01/05/18 21:00 CONCLUSION: 1. Thickening of the colon including the descending colon, sigmoid, and rectum and ascending colon likely related to colitis given the distribution. 2. Hepatic steatosis. 3. Mild hiatal hernia. Abdomen X-Ray 01/06/18 08:00 CONCLUSION: No acute findings. Residual contrast in renal collecting system and bladder. <William Vernon - Last Filed: 01/07/18 13:00> - Labs CBC & Chem 7: 01/06/18 04:45 01/06/18 04:45 Labs: Laboratory Results - last 24 hr 01/06/18 23:16 Urine Color Yellow Urine Clarity Hazy H Urine pH 6.0 Ur Specific [place] 1.008 Urine Protein 30 H Urine Glucose (UA) Negative Urine Ketones 20 Urine Occult Blood Large H Urine Nitrate Negative Urine Bilirubin Negative Urine Urobilinogen Less than 2 Ur Leukocyte Esterase Large H Urine RBC 6 H Urine WBC 121 H Ur Squamous Epith Cells <1 Ur Renal Epithelial Cell 2 Urine Bacteria Rare H Micro UA Comment Culture indicated Ur Microscopic Review Not Reportable Urine Culture Comments Culture indicated <Shannen Mane - Last Filed: 01/07/18 14:15> Assessment and Plan - Plan - Acute C-diff (first episode) presumably secondary to Protonix. lower abdominal pain with nausea vomiting and diarrhea for few days. Stools studies came back (+) for C-diff. This is first episode. Denies recent abx or sick contact. Pt had EGD/dil/colonoscopy on 12/26/17 which revealed esophagitis, gastritis, duodenitis, diverticulosis and hemorrhoids. She was put on Protonix and ever since she is been having the symptoms. Symptoms became progressively worse, pain is 10 out of 10 and gets worse when she has to have a bowel movement. patient had one bowel movement with blood. Today she is doing good, tolerating diet okay, no nausea or vomiting but cont. to have loose stools. Was started on vanco Po. Abdomen/Pelvis CT 01/05/18 Thickening of the colon including the descending colon, sigmoid, and rectum and ascending colon likely related to colitis given the distribution. Hepatic steatosis. Mild hiatal hernia. - R breast CA who follows with Dr. Noy Garrett Plan: - liquid diet - Cont. VAnco - Add Flagyl - Consider Difficid if no improvement - Monitor labs - Supportive care - Pt seen and examined by Dr. Mane and myself and this note is written on her behalf <William Vernon - Last Filed: 01/07/18 13:00> - Attending Attestation seen, examined agree with above <Shannen Mane - Last Filed: 01/07/18 14:15>
--- NOTE | 2018-01-07 15:38 | ECG ---
Date Performed: 01/06/2018 Time Performed: 12:53:45 PTAGE: 57 years EKG: SINUS TACHYCARDIA LOW QRS VOLTAGE IN PRECORDIAL LEADS ABNORMAL RHYTHM ECG Compared to PREVIOUS TRACING , QRS voltage somewhat smaller, otherwise no significant change. PREVIOU S TRACIN08/21/2016 08.01 DOCTOR: Oscar Benavides Interpretating Date/Time 01/07/2018 15:36:16
[2018-01-07] MEDS: Gabapentin 300 MG Capsule PO SCH (20:06)
[2018-01-08 05:47] LABS: Baso # (Auto) 0.1 th/mm3 (0.0-0.2); Baso % (Auto) 0.7 % (0.0-2.0); Eos # (Auto) 0.2 th/mm3 (0.0-0.4); Eos % (Auto) 2.5 % (0.0-4.0); Hematocrit 30.1 % (35.0-46.0); Hemoglobin 10.5 gm/dL (11.6-15.3); Lymph # (Auto) 1.4 th/mm3 (1.0-4.8); Lymph % (Auto) 19.5 % (9.0-44.0); Mean Corpuscular Hemoglobin 38.4 pg (27.0-34.0); Mean Corpuscular Volume 109.7 fL (80.0-100.0); Mean Platelet Volume 8.4 fL (7.0-11.0); Mono # (Auto) 0.8 th/mm3 (0.0-0.9); Mono % (Auto) 11.2 % (0.0-8.0); Neut # (Auto) 4.6 th/mm3 (1.8-7.7); Neut % (Auto) 66.1 % (16.0-70.0); Platelet Count 177 th/mm3 (150-450); Red Blood Count 2.74 mil/mm3 (4.00-5.30); Red Cell Distribution Width 14.2 % (11.6-17.2)
[2018-01-08 06:22] LABS: Alanine Aminotransferase 18 U/L (10-53); Albumin 3.1 g/dL (3.4-5.0); Alkaline Phosphatase 110 U/L (45-117); Anion Gap 17 meq/L (5-15); Aspartate Aminotransferase 34 U/L (15-37); Blood Urea Nitrogen 3 mg/dL (7-18); Calcium 8.8 mg/dL (8.5-10.1); Carbon Dioxide 16.5 meq/L (21.0-32.0); Chloride 98 meq/L (98-107); Glomerular Filtration Rate Greater Than 89 mL/min (>89); Glucose,Random 66 mg/dL (74-106); Potassium 4.3 meq/L (3.5-5.1); Sodium 131 meq/L (136-145); Total Protein 6.6 g/dL (6.4-8.2)
--- NOTE | 2018-01-08 08:21 | P.PNIM ---
Subjective Interval history: 5bm's yesterday liquids Physical Exam Vital signs: Vital Signs 01/07/18 12:50 01/07/18 17:15 01/07/18 19:59 reg lung cta abd s/nt ext no edema Temperature 99.8 F H 99.5 F 99.3 F Pulse Rate 85 96 H 83 Respiratory Rate 16 16 16 Blood Pressure 140/82 146/91 H 143/95 H Pulse Oximetry 100 100 100 01/08/18 00:00 01/08/18 04:00 Temperature 99.3 F 99.7 F H Pulse Rate 82 86 Respiratory Rate 16 16 Blood Pressure 135/90 134/79 Pulse Oximetry 98 98 Intake & Output 01/07/18 01/08/18 01/08/18 18:59 06:59 18:59 Intake Total 2700 / 2700 680 / 680 Output Total 400 / 400 1325 / 1325 Balance 2300 / 2300 -645 / -645 Weight 48.5 kg Intake: IV 2100 / 2100 200 / 200 Potassium Chlor 20 mEq/NACL 0. 2000 / 2000 45% Inj 1,000 ML @ 55 mls/hr IV .CONT .[id number] [facility] Rx#:[id number] Flagyl 500 MG Inj 100 ML @ 100 100 / 100 200 / 200 mls/hr IV.SIG Q8H [facility] Rx#: [id number] Oral 600 / 600 480 / 480 Output: Urine 100 / 100 Urine Amount (Catheter) 300 / 300 1325 / 1325 Female External 300 / 300 1325 / 1325 Other: # Urine Diapers 2 Date of Last Bowel Movement 01/08/18 # Bowel Movements 1 reg lung cta abd s/nt ext no edema - Urinary Catheter Management Female External Cath placed during this visit: no Results - Labs CBC & Chem 7: 01/08/18 05:16 01/08/18 05:16 Laboratory Results - last 24 hr 01/06/18 01/08/18 01/08/18 23:16 05:16 05:16 WBC 7.0 RBC 2.74 L Hgb 10.5 L Hct 30.1 L MCV 109.7 H MCH 38.4 H MCHC 35.0 RDW 14.2 Plt Count 177 MPV 8.4 Neut % (Auto) 66.1 Lymph % (Auto) 19.5 [place] % (Auto) 11.2 H Eos % (Auto) 2.5 Baso % (Auto) 0.7 Neut # (Auto) 4.6 Lymph # (Auto) 1.4 [place] # (Auto) 0.8 Eos # (Auto) 0.2 Baso # (Auto) 0.1 WBC Differential . Differential Comment Auto diff final Sodium 131 L Potassium 4.3 Chloride 98 Carbon Dioxide 16.5 L Anion Gap 17 H BUN 3 L Creatinine 0.64 Estimated GFR Greater than 89 Random Glucose 66 L Calcium 8.8 Total Bilirubin 0.9 AST 34 ALT 18 Alkaline Phosphatase 110 Total Protein 6.6 Albumin 3.1 L Urine Color Yellow Urine Clarity Hazy H Urine pH 6.0 Ur Specific [place] 1.008 Urine Protein 30 H Urine Glucose (UA) Negative Urine Ketones 20 Urine Occult Blood Large H Urine Nitrate Negative Urine Bilirubin Negative Urine Urobilinogen Less than 2 Ur Leukocyte Esterase Large H Urine RBC 6 H Urine WBC 121 H Ur Squamous Epith Cells <1 Ur Renal Epithelial Cell 2 Urine Bacteria Rare H Micro UA Comment Culture indicated Urine Culture Comments Culture indicated Microbiology 01/06/18 23:16 Clean Catch Urine Urine Culture - Preliminary gram negative rods Assessment and Plan - Assessment (1) Clostridium difficile infection Code(s): B96.89 - Other specified bacterial agents as the cause of diseases classified elsewhere Status: Acute Plan: This is a pleasant 57 y/o F with h/o ETOH abuse, anxiety, endometriosis, and R breast CA who follows with Dr. Noy Garrett for stage I ER-positive right breast cancer status post surgery with low Oncotype DX. She had radiation currently taking Arimidex. She reports that she had a colonoscopy that was done on Monday of last week. Patient has been having lower abdominal pain with nausea vomiting and diarrhea which is getting progressively worse over the last 3 days. C Difficile colitis Chest X-Ray Negative examination. Abdomen/Pelvis CT 1. Thickening of the colon including the descending colon, sigmoid, and rectum and ascending colon likely related to colitis given the distribution. 2. Hepatic steatosis. 3. Mild hiatal hernia. Abdomen X-Ray No acute findings. Residual contrast in renal collecting system and bladder. C Difficile positive cont ivf. pt on both vanco /flagyl advance diet as tolerated PT and oob today pt denies any uti sx's. urine cx noted. Hx R breast CA R breast CA who follows with Dr. Noy Garrett for stage I ER-positive right breast cancer status post surgery with low Oncotype DX. She had radiation currently taking Arimidex. Continue patient's home Arimidex Anxiety/Depression Continue patient's home Lexapro 20 mg PO daily SCDs for DVT prophylaxis
[2018-01-08] MEDS: Anastrozole 1 MG Tablet PO SCH (11:08)
--- NOTE | 2018-01-08 13:44 | P.PNGI ---
Subjective Interval history: Continues to be weakened generalized, 3+ loose incontinent stools a day. Current hemoglobin 10.5 normalized WBC count 7. no nausea vomiting or dyspepsia. Physical Exam Vital signs: Vital Signs 01/07/18 17:15 01/07/18 19:59 01/08/18 00:00 Temperature 99.5 F 99.3 F 99.3 F Pulse Rate 96 H 83 82 Respiratory Rate 16 16 16 Blood Pressure 146/91 H 143/95 H 135/90 Pulse Oximetry 100 100 98 01/08/18 04:00 01/08/18 08:00 01/08/18 13:13 Temperature 99.7 F H 97.7 F Pulse Rate 86 Respiratory Rate 16 18 Blood Pressure 134/79 124/86 Pulse Oximetry 98 100 Intake & Output 01/07/18 01/08/18 01/08/18 18:59 06:59 18:59 Intake Total 2700 / 2700 680 / 680 Output Total 400 / 400 1325 / 1325 Balance 2300 / 2300 -645 / -645 Weight 48.5 kg Intake: IV 2100 / 2100 200 / 200 Potassium Chlor 20 mEq/NACL 0. 2000 / 2000 45% Inj 1,000 ML @ 55 mls/hr IV .CONT .[id number] [facility] Rx#:[id number] Flagyl 500 MG Inj 100 ML @ 100 100 / 100 200 / 200 mls/hr IV.SIG Q8H [facility] Rx#: [id number] Oral 600 / 600 480 / 480 Output: Urine 100 / 100 Urine Amount (Catheter) 300 / 300 1325 / 1325 Female External 300 / 300 1325 / 1325 Other: # Urine Diapers 2 Date of Last Bowel Movement 01/08/18 01/08/18 # Bowel Movements 1 - Constitutional mild distress, thin, cachectic, cooperative - Routine HEENT Exam Head: Present: normocephalic ENT: Present: mucous membranes dry - Routine Neck Exam Present: supple - Routine Cardiovascular Exam Present: S1, S2 - Routine Abdominal Exam Present: soft, distended (Minimal but does note generalized tenderness all over abdomen even to light palpation or at rest) - Routine Neurological Exam Present: alert (Awake answer simple questions appropriately) - Urinary Catheter Management Female External Cath placed during this visit: no Results - Labs CBC & Chem 7: 01/08/18 05:16 01/08/18 05:16 Laboratory Results - last 24 hr 01/06/18 01/08/18 01/08/18 23:16 05:16 05:16 WBC 7.0 RBC 2.74 L Hgb 10.5 L Hct 30.1 L MCV 109.7 H MCH 38.4 H MCHC 35.0 RDW 14.2 Plt Count 177 MPV 8.4 Neut % (Auto) 66.1 Lymph % (Auto) 19.5 [place] % (Auto) 11.2 H Eos % (Auto) 2.5 Baso % (Auto) 0.7 Neut # (Auto) 4.6 Lymph # (Auto) 1.4 [place] # (Auto) 0.8 Eos # (Auto) 0.2 Baso # (Auto) 0.1 WBC Differential . Differential Comment Auto diff final Sodium 131 L Potassium 4.3 Chloride 98 Carbon Dioxide 16.5 L Anion Gap 17 H BUN 3 L Creatinine 0.64 Estimated GFR Greater than 89 Random Glucose 66 L Calcium 8.8 Total Bilirubin 0.9 AST 34 ALT 18 Alkaline Phosphatase 110 Total Protein 6.6 Albumin 3.1 L Urine Color Yellow Urine Clarity Hazy H Urine pH 6.0 Ur Specific [place] 1.008 Urine Protein 30 H Urine Glucose (UA) Negative Urine Ketones 20 Urine Occult Blood Large H Urine Nitrate Negative Urine Bilirubin Negative Urine Urobilinogen Less than 2 Ur Leukocyte Esterase Large H Urine RBC 6 H Urine WBC 121 H Ur Squamous Epith Cells <1 Ur Renal Epithelial Cell 2 Urine Bacteria Rare H Micro UA Comment Culture indicated Urine Culture Comments Culture indicated Microbiology 01/06/18 23:16 Clean Catch Urine Urine Culture - Final Escherichia coli Assessment and Plan - Plan - Acute C-diff (first episode) presumably secondary to Protonix. lower abdominal pain with nausea vomiting and diarrhea for few days. Stools studies came back (+) for C-diff. This is first episode. Denies recent abx or sick contact. Pt had EGD/dil/colonoscopy on 12/26/17 which revealed esophagitis, gastritis, duodenitis, diverticulosis and hemorrhoids. She was put on Protonix and ever since she is been having the symptoms. Symptoms became progressively worse, pain is 10 out of 10 and gets worse when she has to have a bowel movement. patient had one bowel movement with blood. Today she is doing good, tolerating diet okay, no nausea or vomiting but cont. to have loose stools. Was started on vanco Po. Abdomen/Pelvis CT 01/05/18 Thickening of the colon including the descending colon, sigmoid, and rectum and ascending colon likely related to colitis given the distribution. Hepatic steatosis. Mild hiatal hernia. - R breast CA who follows with Dr. Noy Garrett 01/08/2018 patient continues with some uncontrolled loose diarrhea stools at least 3+ a day C. difficile diarrhea, currently on vancomycin p.o. and Flagyl IV. Patient appears to have symptoms unchanged over the past 24 hours. Will monitor for any improvement and consider Dificid if needed. Leukocytosis normalized with WBC count 7. Continue bowel rest but encourage hydration Anemia, no obvious bleeding current hemoglobin 10.5 Positive urine culture but further antibiotics may complicate healing of C. difficile. Use with caution Plan Diet liquids as tolerated, encourage hydration Vancomycin p.o. Flagyl IV Monitor labs Encourage patient to dangle on side of bed if possible, increase mobility Supportive care Patient was seen per myself and Dr. Mane, note was written on her behalf
[2018-01-08] MEDS: KCL 20 mEq/D5W/NaCl 0.9% Inj 1,000 ML IV.CONT SCH ×2 (15:16→20:36)
[2018-01-08] MEDS: Gabapentin 300 MG Capsule PO SCH (20:32)
[2018-01-08 20:53] LABS: Bacteria,Urine Rare /hpf; Bilirubin,Urine Negative (Negative); Clarity,Urine Cloudy (Clear); Color,Urine Yellow (Yellw/Straw); Glucose,Urine (UA) Negative (Negative); Leukocyte Esterase,Urine Large (Negative); Nitrite,Urine Negative (Negative); Specific Gravity,Urine 1.016 (1.002-1.035)
[2018-01-08] MEDS: Temazepam 15 MG Capsule PO PRN (22:11)
--- NOTE | 2018-01-09 08:40 | P.PNIM ---
Subjective Interval history: starting to have more formed stools less volume says she always has intermittent burning with urine at home and her current sx's are no different. Physical Exam Vital signs: Vital Signs 01/08/18 12:00 01/08/18 13:13 01/08/18 16:00 Temperature Pulse Rate 85 Respiratory Rate 18 18 18 Blood Pressure 126/77 Pulse Oximetry 99 01/08/18 17:00 01/08/18 20:00 01/09/18 00:00 Temperature 98.8 F 98.8 F 98 F Pulse Rate 87 70 Respiratory Rate 18 16 16 Blood Pressure 132/86 123/80 133/84 Pulse Oximetry 98 98 97 01/09/18 04:00 01/09/18 08:28 Temperature 98.7 F 98.5 F Pulse Rate 78 88 Respiratory Rate 16 18 Blood Pressure 128/81 129/89 Pulse Oximetry 99 100 Intake & Output 01/08/18 01/09/18 01/09/18 18:59 06:59 18:59 Intake Total 100 / 100 1680 / 1680 Balance 100 / 100 1680 / 1680 Weight 49 kg Intake: IV 100 / 100 1200 / 1200 D5W/NS + KCL 20 mEq Inj 1,000 1000 / 1000 ML @ 50 mls/hr IV.CONT .Q20H [facility] Rx#:[id number] Flagyl 500 MG Inj 100 ML @ 100 100 / 100 200 / 200 mls/hr IV.SIG Q8H [facility] Rx#: [id number] Oral 480 / 480 Other: # Voids 1 Date of Last Bowel Movement 01/08/18 01/08/18 # Bowel Movements 1 heart reg lung cta abd s/nt ext no edema - Urinary Catheter Management Female External Cath placed during this visit: no Results - Labs CBC & Chem 7: 01/08/18 05:16 01/08/18 05:16 Laboratory Results - last 24 hr 01/08/18 18:20 Urine Color Yellow Urine Clarity Cloudy H Urine pH 5.0 Ur Specific [place] 1.016 Urine Protein 30 H Urine Glucose (UA) Negative Urine Ketones 80 or greater H Urine Occult Blood Moderate H Urine Nitrate Negative Urine Bilirubin Negative Urine Urobilinogen Less than 2 Ur Leukocyte Esterase Large H Urine RBC 25 H Urine WBC Urine WBC Clumps Occasional H Urine Bacteria Rare H Micro UA Comment Culture indicated Ur Microscopic Review Not Reportable Urine Culture Comments Culture indicated Microbiology 01/06/18 23:16 Clean Catch Urine Urine Culture - Final Escherichia coli Assessment and Plan - Assessment (1) Clostridium difficile infection Code(s): B96.89 - Other specified bacterial agents as the cause of diseases classified elsewhere Status: Acute Plan: This is a pleasant 57 y/o F with h/o ETOH abuse, anxiety, endometriosis, and R breast CA who follows with Dr. Noy Garrett for stage I ER-positive right breast cancer status post surgery with low Oncotype DX. She had radiation currently taking Arimidex. She reports that she had a colonoscopy that was done on Monday of last week. Patient has been having lower abdominal pain with nausea vomiting and diarrhea which is getting progressively worse over the last 3 days. C Difficile colitis Chest X-Ray Negative examination. Abdomen/Pelvis CT 1. Thickening of the colon including the descending colon, sigmoid, and rectum and ascending colon likely related to colitis given the distribution. 2. Hepatic steatosis. 3. Mild hiatal hernia. Abdomen X-Ray No acute findings. Residual contrast in renal collecting system and bladder. C Difficile positive dc ivf pt on both vanco /flagyl advance diet as tolerated PT and oob today pt denies any changes to uti sx's. urine cx noted. trying to avoid abx in setting of cdiff. she agrees. snf vs [facility]. cm consult. hopefully dc tomorrow. diet advancement Hx R breast CA R breast CA who follows with Dr. Noy Garrett for stage I ER-positive right breast cancer status post surgery with low Oncotype DX. She had radiation currently taking Arimidex. Continue patient's home Arimidex Anxiety/Depression Continue patient's home Lexapro 20 mg PO daily SCDs for DVT prophylaxis
[2018-01-09] MEDS: Anastrozole 1 MG Tablet PO SCH (08:41)
[2018-01-09 08:52] LABS: Anion Gap 11 meq/L (5-15); Blood Urea Nitrogen 4 mg/dL (7-18); Calcium 8.8 mg/dL (8.5-10.1); Carbon Dioxide 20.8 meq/L (21.0-32.0); Chloride 103 meq/L (98-107); Glomerular Filtration Rate Greater Than 89 mL/min (>89); Glucose,Random 95 mg/dL (74-106); Potassium 3.6 meq/L (3.5-5.1); Sodium 135 meq/L (136-145)
--- NOTE | 2018-01-09 13:59 | P.PNGI ---
Subjective Interval history: Patient is sitting up in the bed eating solid food and looks more alert today. States she is feeling better and tolerating solid food without any nausea vomiting. Left lower quadrant mild soreness but no obvious pain at rest. Stools have become thicker in consistency, <Patsy Mei - Last Filed: 01/09/18 13:54> Physical Exam Vital signs: Vital Signs 01/08/18 16:00 01/08/18 17:00 01/08/18 20:00 Temperature 98.8 F 98.8 F Pulse Rate 87 Respiratory Rate 18 18 16 Blood Pressure 132/86 123/80 Pulse Oximetry 98 98 01/09/18 00:00 01/09/18 04:00 01/09/18 08:28 Temperature 98 F 98.7 F 98.5 F Pulse Rate 70 78 88 Respiratory Rate 16 16 18 Blood Pressure 133/84 128/81 129/89 Pulse Oximetry 97 99 100 01/09/18 11:24 Temperature 98.1 F Pulse Rate 92 H Respiratory Rate 18 Blood Pressure 135/83 Pulse Oximetry 99 Intake & Output 01/08/18 01/09/18 01/09/18 18:59 06:59 18:59 Intake Total 100 / 100 1680 / 1680 600 / 600 Balance 100 / 100 1680 / 1680 600 / 600 Weight 49 kg Intake: IV 100 / 100 1200 / 1200 600 / 600 D5W/NS + KCL 20 mEq Inj 1,000 1000 / 1000 600 / 600 ML @ 50 mls/hr IV.CONT .Q20H [facility] Rx#:[id number] Flagyl 500 MG Inj 100 ML @ 100 100 / 100 200 / 200 mls/hr IV.SIG Q8H [facility] Rx#: [id number] Oral 480 / 480 Other: # Voids 1 Date of Last Bowel Movement 01/08/18 01/08/18 01/09/18 # Bowel Movements 1 - Constitutional no acute distress, thin, cooperative - Routine HEENT Exam ENT: Present: mucous membranes moist - Routine Respiratory Exam Present: accessory muscle use (No obvious shortness of breath at rest) - Routine Cardiovascular Exam Present: S1, S2 - Routine Abdominal Exam Present: soft (Left lower quadrant soreness mild but no obvious pain) - Routine Skin Exam Present: intact, pallor - Urinary Catheter Management Female External Cath placed during this visit: no <Patsy Mei - Last Filed: 01/09/18 13:54> Vital signs: Vital Signs 01/08/18 20:00 01/09/18 00:00 01/09/18 04:00 Temperature 98.8 F 98 F 98.7 F Pulse Rate 87 70 78 Respiratory Rate 16 16 16 Blood Pressure 123/80 133/84 128/81 Pulse Oximetry 98 97 99 01/09/18 08:28 01/09/18 11:24 01/09/18 15:08 Temperature 98.5 F 98.1 F 99.4 F Pulse Rate 88 92 H 97 H Respiratory Rate 18 Blood Pressure 129/89 135/83 127/79 Pulse Oximetry 100 99 99 Intake & Output 01/08/18 01/09/18 01/09/18 18:59 06:59 18:59 Intake Total 100 / 100 1680 / 1680 2019 / 2020 Output Total 800 / 800 Balance 100 / 100 1680 / 1680 1220 / 1220 Weight 49 kg Intake: IV 100 / 100 1200 / 1200 700 / 700 D5W/NS + KCL 20 mEq Inj 1,000 1000 / 1000 600 / 600 ML @ 50 mls/hr IV.CONT .Q20H [facility] Rx#:[id number] Flagyl 500 MG Inj 100 ML @ 100 100 / 100 200 / 200 100 / 100 mls/hr IV.SIG Q8H [facility] Rx#: [id number] Oral 480 / 480 1320 / 1320 Output: Urine 800 / 800 Other: # Voids 1 Date of Last Bowel Movement 01/08/18 01/08/18 01/09/18 # Bowel Movements 1 3 - Urinary Catheter Management Female External Cath placed during this visit: no <Shannen Mane - Last Filed: 01/09/18 18:53> Results - Labs CBC & Chem 7: 01/08/18 05:16 01/09/18 07:51 Laboratory Results - last 24 hr 01/08/18 01/09/18 18:20 07:51 Sodium 135 L Potassium 3.6 Chloride 103 Carbon Dioxide 20.8 L Anion Gap 11 BUN 4 L Creatinine 0.65 Estimated GFR Greater than 89 Random Glucose 95 Calcium 8.8 Urine Color Yellow Urine Clarity Cloudy H Urine pH 5.0 Ur Specific [place] 1.016 Urine Protein 30 H Urine Glucose (UA) Negative Urine Ketones 80 or greater H Urine Occult Blood Moderate H Urine Nitrate Negative Urine Bilirubin Negative Urine Urobilinogen Less than 2 Ur Leukocyte Esterase Large H Urine RBC 25 H Urine WBC Urine WBC Clumps Occasional H Urine Bacteria Rare H Micro UA Comment Culture indicated Ur Microscopic Review Not Reportable Urine Culture Comments Culture indicated Microbiology 01/08/18 18:20 Clean Catch Urine Urine Culture - Preliminary Immature growth - reincubate <Patsy Mei - Last Filed: 01/09/18 13:54> - Labs CBC & Chem 7: 01/08/18 05:16 01/09/18 07:51 Laboratory Results - last 24 hr 01/08/18 01/09/18 18:20 07:51 Sodium 135 L Potassium 3.6 Chloride 103 Carbon Dioxide 20.8 L Anion Gap 11 BUN 4 L Creatinine 0.65 Estimated GFR Greater than 89 Random Glucose 95 Calcium 8.8 Urine Color Yellow Urine Clarity Cloudy H Urine pH 5.0 Ur Specific [place] 1.016 Urine Protein 30 H Urine Glucose (UA) Negative Urine Ketones 80 or greater H Urine Occult Blood Moderate H Urine Nitrate Negative Urine Bilirubin Negative Urine Urobilinogen Less than 2 Ur Leukocyte Esterase Large H Urine RBC 25 H Urine WBC Urine WBC Clumps Occasional H Urine Bacteria Rare H Micro UA Comment Culture indicated Ur Microscopic Review Not Reportable Urine Culture Comments Culture indicated Microbiology 01/08/18 18:20 Clean Catch Urine Urine Culture - Preliminary Immature growth - reincubate <Shannen Mane - Last Filed: 01/09/18 18:53> Assessment and Plan - Plan - Acute C-diff (first episode) presumably secondary to Protonix. lower abdominal pain with nausea vomiting and diarrhea for few days. Stools studies came back (+) for C-diff. This is first episode. Denies recent abx or sick contact. Pt had EGD/dil/colonoscopy on 12/26/17 which revealed esophagitis, gastritis, duodenitis, diverticulosis and hemorrhoids. She was put on Protonix and ever since she is been having the symptoms. Symptoms became progressively worse, pain is 10 out of 10 and gets worse when she has to have a bowel movement. patient had one bowel movement with blood. Today she is doing good, tolerating diet okay, no nausea or vomiting but cont. to have loose stools. Was started on vanco Po. Abdomen/Pelvis CT 10/12/18 Thickening of the colon including the descending colon, sigmoid, and rectum and ascending colon likely related to colitis given the distribution. Hepatic steatosis. Mild hiatal hernia. - R breast CA who follows with Dr. Noy Garrett 01/08/2018 patient continues with some uncontrolled loose diarrhea stools at least 3+ a day C. difficile diarrhea, currently on vancomycin p.o. and Flagyl IV. Patient appears to have symptoms unchanged over the past 24 hours. Will monitor for any improvement and consider Dificid if needed. Leukocytosis normalized with WBC count 7. Continue bowel rest but encourage hydration Anemia, no obvious bleeding current hemoglobin 10.5 Positive urine culture but further antibiotics may complicate healing of C. difficile. Use with caution 01/09/2018 patient is feeling much better today with less than 3 diarrheal stools. States she was able to sleep long intervals this past a.m. Gradual improvement noted, effective treatment currently with C. difficile. Patient is tolerating regular food. Encouraged reflux precautions as well as eating slowly and chewing food well and monitoring for any acute abdominal pain. Consider transitioning Flagyl to p.o. and continue full round of vancomycin and Flagyl. Patient needs to follow-up in the GI office post hospital stay in 2-4 weeks. She will also need follow-up stool check for C. difficile toxin. encourage patient to maintain mobility is much as possible. And consider probiotics once she is home. Plan Diet liquids as tolerated, encourage hydration Vancomycin p.o. Flagyl Encourage patient to dangle on side of bed if possible, increase mobility Follow-up in GI office in 2-4 weeks and as needed Supportive care Patient was seen per myself and Dr. Mane, note was written on her behalf <Patsy Mei - Last Filed: 01/09/18 13:54> - Attending Attestation seen, examined agree with above <Shannen Mane - Last Filed: 01/09/18 18:53>
--- NOTE | 2018-01-09 15:55 | P.DCO ---
- Diagnosis (1) Colitis Status: Acute (2) Clostridium difficile infection Status: Acute - Physical Therapy Order: Evaluate and treat, Improve ambulation - Home Health Nursing Order: Medical education, Signs/symptoms of disease process, Medication education-adverse effect, Nursing assessment with vital signs - Case Management Consult No - Certification I have seen patient Ratna Dumont on 01/09/18. My clinical findings support the need for the requested home health care services because: Deconditioned with increased weakness I certify that my clinical findings support that this patient is homebound because: Unsteady gait/balance
[2018-01-09] MEDS: Temazepam 15 MG Capsule PO PRN (21:04)
[2018-01-09] MEDS: Gabapentin 300 MG Capsule PO SCH (21:04)
--- NOTE | 2018-01-10 09:17 | P.DS ---
Date of admission: 01/05/18 22:58 Primary care physician: Ivana Paul MD Brief History from admission: This is a pleasant 57 y/o F with h/o ETOH abuse, anxiety, endometriosis, and R breast CA who follows with Dr. Noy Garrett for stage I ER-positive right breast cancer status post surgery with low Oncotype DX. She had radiation currently taking Arimidex. Patient presented to the ED for evaluation of lower abdominal pain with nausea vomiting and low-grade diarrhea. Per patient she has had this for 3 days. Per patient progressively getting worse. She can't keep anything down. She reports that she had a colonoscopy that was done on Monday of last week. She was put on Protonix and ever since she is been having the symptoms. Patient more aggressive the past 3 days. She has not seen her GI doctor for this. Her primary care doctor recommended that she go to the ER. She was told she had diverticulosis by her GI doctor. She follows with Dr. Mane. She denies any urinary symptoms. Per patient the pain is 10 out of 10 and gets worse when she has to have a bowel movement. Per patient she has bowel movement with blood and stool. States the last time she threw up was 2 days ago. She has been feeling nauseous since. Past Medical History - Anxiety - endometriosis - right breast cancer - abnormal mammogram 11/2015 - right lumpectomy December 2015 - s/p radiation therapy - etoh abuse Past Surgical History Hysterectomy(complete) Tonsillectomy Right breast lumpectomy in 2015 Bilateral breast biopsy in 2015 cholecystectomy Colonoscopy in 2007 Family History reviewed and Non-contributory Social History ETOH use 1 glass of wine per day per patient, per 2-3 glasses of wine per day Denies tobacco use per day DS: Diagnosis - Discharge Diagnosis (1) Colitis Status: Acute (2) Clostridium difficile infection Status: Acute DS: Medications - Discharge Medications Prescriptions: hydrocodone-acetaminophen 1 tab PO Q6H PRN #12 tab PRN Reason: pain metronidazole [Flagyl] 500 mg PO TID 10 Days #30 tab ondansetron [Zofran ODT] 4 mg PO Q6-8H PRN #20 tab PRN Reason: nausea and vomiting temazepam 15 mg PO HS PRN #15 cap PRN Reason: Insomnia vancomycin 125 mg PO QID 10 Days #40 cap DS: Summary Hospital Course: Assessment and Plan - Assessment (1) Clostridium difficile infection Code(s): B96.89 - Other specified bacterial agents as the cause of diseases classified elsewhere Status: Acute Plan: This is a pleasant 57 y/o F with h/o ETOH abuse, anxiety, endometriosis, and R breast CA who follows with Dr. Noy Garrett for stage I ER-positive right breast cancer status post surgery with low Oncotype DX. She had radiation currently taking Arimidex. She reports that she had a colonoscopy that was done on Monday of last week. Patient has been having lower abdominal pain with nausea vomiting and diarrhea which is getting progressively worse over the last 3 days. C Difficile colitis Chest X-Ray Negative examination. Abdomen/Pelvis CT 1. Thickening of the colon including the descending colon, sigmoid, and rectum and ascending colon likely related to colitis given the distribution. 2. Hepatic steatosis. 3. Mild hiatal hernia. Abdomen X-Ray No acute findings. Residual contrast in renal collecting system and bladder. C Difficile positive Pt tolerating diet and stools more formed pt on both vanco /flagyl and will need 10 more days f/u closely with Dr Mane and GI pt denies any changes to uti sx's. urine cx noted with ecoli. trying to avoid abx in setting of cdiff. she agrees. monitor for sx's and f/u closely with pcp if develops more uti sx's. pt agrees Pt would benefit from snf due to weakness. refuses. she and will go home with hhc/pt. Hx R breast CA R breast CA who follows with Dr. Noy Garrett for stage I ER-positive right breast cancer status post surgery with low Oncotype DX. She had radiation currently taking Arimidex. Continue patient's home Arimidex Anxiety/Depression Continue patient's home Lexapro 20 mg PO daily SCDs for DVT prophylaxis - Time Spent with Patient Total time spent providing and/or coordinating discharge services: Greater than 30 minutes - Quality: VTE Deep Vein Thrombosis/Pulmonary Embolism Present on Admission: No Exam Vital signs: Vital Signs 01/09/18 11:24 01/09/18 15:08 01/09/18 20:56 Temperature 98.1 F 99.4 F 98.9 F Pulse Rate 92 H 97 H 84 Respiratory Rate 18 18 17 Blood Pressure 135/83 127/79 130/90 Pulse Oximetry 99 99 97 01/09/18 22:25 01/09/18 23:00 01/10/18 00:00 Temperature 97.3 F L 97.3 F L Pulse Rate 122 H 98 H 98 H Respiratory Rate 19 Blood Pressure 109/70 109/70 Pulse Oximetry 99 99 01/10/18 04:00 01/10/18 08:00 Temperature 98.2 F 98.9 F Pulse Rate 80 90 Respiratory Rate 18 18 Blood Pressure 134/81 121/88 Pulse Oximetry 96 100 Intake & Output 01/09/18 01/10/18 01/10/18 18:59 06:59 18:59 Intake Total 2020 / 2020 200 / 200 Output Total 800 / 800 1275 / 1275 Balance 1220 / 1220 -1075 / -1075 Weight 49 kg Intake: IV 700 / 700 200 / 200 D5W/NS + KCL 20 mEq Inj 1,000 600 / 600 ML @ 50 mls/hr IV.CONT .Q20H [facility] Rx#:[id number] Flagyl 500 MG Inj 100 ML @ 100 100 / 100 200 / 200 mls/hr IV.SIG Q8H [facility] Rx#: [id number] Oral 1320 / 1320 Output: Urine 800 / 800 575 / 575 Urine Amount (Catheter) 700 / 700 Female External 700 / 700 Other: Date of Last Bowel Movement 01/09/18 01/10/18 # Bowel Movements 3 5 heart reg lung cta abd s/nt ext no edema Results Procedures completed during hospitalization: ct a/p Labs on day of discharge: Preliminary micro results at discharge 01/08/18 18:20 Urine Culture - Preliminary Clean Catch Urine Immature growth - reincubate - Impressions ITS Impressions Chest X-Ray 01/05/18 00:00 CONCLUSION: Negative examination. Abdomen/Pelvis CT 01/05/18 21:00 CONCLUSION: 1. Thickening of the colon including the descending colon, sigmoid, and rectum and ascending colon likely related to colitis given the distribution. 2. Hepatic steatosis. 3. Mild hiatal hernia. Abdomen X-Ray 01/06/18 08:00 CONCLUSION: No acute findings. Residual contrast in renal collecting system and bladder. Discharge Plan - Discharge Disposition Patient Disposition: W/Home Health Service - Discharge Condition Condition: Stable - Discharge Order Discharge Orders: Discharge Order (Routine); Ordered 10/17/18 Ordered By: Oscar Dyson - Discharge Details Anticipated Discharge Date: 01/10/18 - Physicians Team Primary Care Provider: Ivana Paul Attending Provider: Geo Cortes Other Providers: Shannen Mane MD
[2018-01-10] MEDS: Anastrozole 1 MG Tablet PO SCH (09:26)
--- NOTE | 2018-01-10 12:56 | P.PNGI ---
Subjective Interval history: In the bed able to eat solid food stools are soft non-watery diarrhea Physical Exam Vital signs: Vital Signs 01/09/18 15:08 01/09/18 20:56 01/09/18 22:25 Temperature 99.4 F 98.9 F 97.3 F L Pulse Rate 97 H 84 122 H Respiratory Rate 18 17 Blood Pressure 127/79 130/90 109/70 Pulse Oximetry 99 97 99 01/09/18 23:00 01/10/18 00:00 01/10/18 04:00 Temperature 97.3 F L 98.2 F Pulse Rate 98 H 98 H 80 Respiratory Rate 19 18 Blood Pressure 109/70 134/81 Pulse Oximetry 99 96 01/10/18 08:00 01/10/18 12:00 Temperature 98.9 F 97.7 F Pulse Rate 90 86 Respiratory Rate 18 18 Blood Pressure 121/88 129/83 Pulse Oximetry 100 98 Intake & Output 01/09/18 01/10/18 01/10/18 18:59 06:59 18:59 Intake Total 2019 / 2019 200 / 200 Output Total 800 / 800 1275 / 1275 Balance 1220 / 1220 -1075 / -1075 Weight 49 kg Intake: IV 700 / 700 200 / 200 D5W/NS + KCL 20 mEq Inj 1,000 600 / 600 ML @ 50 mls/hr IV.CONT .Q20H [facility] Rx#:[id number] Flagyl 500 MG Inj 100 ML @ 100 100 / 100 200 / 200 mls/hr IV.SIG Q8H [facility] Rx#: [id number] Oral 1320 / 1320 Output: Urine 800 / 800 575 / 575 Urine Amount (Catheter) 700 / 700 Female External 700 / 700 Other: Date of Last Bowel Movement 01/09/18 01/10/18 # Bowel Movements 3 5 - Constitutional no acute distress, thin, cooperative - Routine HEENT Exam Head: Present: normocephalic ENT: Present: mucous membranes moist - Routine Cardiovascular Exam Present: S1, S2 - Routine Abdominal Exam Present: soft (Left lower quadrant mild discomfort but much improved) - Urinary Catheter Management Female External Cath placed during this visit: no Results - Labs CBC & Chem 7: 01/08/18 05:16 01/09/18 07:51 Microbiology 01/08/18 18:20 Clean Catch Urine Urine Culture - Final <10,000 cfu/mL gram negative rods - no further workup - Procedures ct a/p Assessment and Plan - Plan - Acute C-diff (first episode) presumably secondary to Protonix. lower abdominal pain with nausea vomiting and diarrhea for few days. Stools studies came back (+) for C-diff. This is first episode. Denies recent abx or sick contact. Pt had EGD/dil/colonoscopy on 12/26/17 which revealed esophagitis, gastritis, duodenitis, diverticulosis and hemorrhoids. She was put on Protonix and ever since she is been having the symptoms. Symptoms became progressively worse, pain is 10 out of 10 and gets worse when she has to have a bowel movement. patient had one bowel movement with blood. Today she is doing good, tolerating diet okay, no nausea or vomiting but cont. to have loose stools. Was started on vanco Po. Abdomen/Pelvis CT 01/05/18 Thickening of the colon including the descending colon, sigmoid, and rectum and ascending colon likely related to colitis given the distribution. Hepatic steatosis. Mild hiatal hernia. - R breast CA who follows with Dr. Noy Garrett 01/08/2018 patient continues with some uncontrolled loose diarrhea stools at least 3+ a day C. difficile diarrhea, currently on vancomycin p.o. and Flagyl IV. Patient appears to have symptoms unchanged over the past 24 hours. Will monitor for any improvement and consider Dificid if needed. Leukocytosis normalized with WBC count 7. Continue bowel rest but encourage hydration Anemia, no obvious bleeding current hemoglobin 10.5 Positive urine culture but further antibiotics may complicate healing of C. difficile. Use with caution 01/09/2018 patient is feeling much better today with less than 3 diarrheal stools. States she was able to sleep long intervals this past a.m. Gradual improvement noted, effective treatment currently with C. difficile. Patient is tolerating regular food. Encouraged reflux precautions as well as eating slowly and chewing food well and monitoring for any acute abdominal pain. Consider transitioning Flagyl to p.o. and continue full round of vancomycin and Flagyl. Patient needs to follow-up in the GI office post hospital stay in 2-4 weeks. She will also need follow-up stool check for C. difficile toxin. encourage patient to maintain mobility is much as possible. And consider probiotics once she is home. 01/10/2018 patient is discharging today and is showing daily gradual improvement from her C. difficile. Patient will need to continue full course of treatment and be rechecked after treatment completed.. Follow-up in the GI office in 2-4 weeks. Discussed antireflux regimen again and gradual adding of foods back as long as there is no aggregating factors. Supportive care given Patient was seen per myself and Dr. Mane, note was written on her behalf
== END 2018-01-10 15:36 | disposition home health service (06) ==
LOC: NEDA 17:58 → NEPC 17:58 → OBSVTOIN 22:55 → NEPHCDU 01-06 01:28 → HCIN 01-06 15:30 → HCIS 01-09 08:39 → HCIN 01-09 08:45
PROVIDERS: ADMIT Hospitalist; ATTEND Hospitalist

== ENCOUNTER 2018-03-22 01:31 | Inpatient (IN) ==
[2018-03-22] MEDS ORDERED: Sod Chloride 0.9% Inj 1,000 ML IV.SIG ONE (02:06)
[2018-03-22 02:28] LABS: Baso # (Auto) 0.1 th/mm3 (0.0-0.2); Baso % (Auto) 0.8 % (0.0-2.0); Hematocrit 36.1 % (35.0-46.0); Hemoglobin 12.5 gm/dL (11.6-15.3); Lymph # (Auto) 0.6 th/mm3 (1.0-4.8); Lymph % (Auto) 4.8 % (9.0-44.0); Mean Corpuscular HGB Conc 34.6 % (32.0-36.0); Mean Corpuscular Hemoglobin 34.4 pg (27.0-34.0); Mean Corpuscular Volume 99.5 fL (80.0-100.0); Mean Platelet Volume 8.7 fL (7.0-11.0); Mono # (Auto) 1.6 th/mm3 (0.0-0.9); Mono % (Auto) 13.8 % (0.0-8.0); Neut # (Auto) 9.5 th/mm3 (1.8-7.7); Neut % (Auto) 80.6 % (16.0-70.0); Platelet Count 198 th/mm3 (150-450); Red Blood Count 3.62 mil/mm3 (4.00-5.30); Red Cell Distribution Width 16.2 % (11.6-17.2); White Blood Count 11.9 th/mm3 (4.0-11.0)
[2018-03-22 02:47] LABS: Alanine Aminotransferase 22 U/L (10-53); Albumin 4.5 g/dL (3.4-5.0); Anion Gap 22 meq/L (5-15); Aspartate Aminotransferase 45 U/L (15-37); Blood Urea Nitrogen 19 mg/dL (7-18); Calcium 8.8 mg/dL (8.5-10.1); Carbon Dioxide 22.9 meq/L (21.0-32.0); Chloride 86 meq/L (98-107); Glucose,Random 181 mg/dL (74-106); Magnesium 0.9 mg/dL (1.5-2.5); Potassium 3.5 meq/L (3.5-5.1); Sodium 131 meq/L (136-145)
[2018-03-22 02:50] LABS: Alkaline Phosphatase 116 U/L (45-117); Lipase 4490 U/L (73-393); Total Protein 8.4 g/dL (6.4-8.2)
[2018-03-22] MEDS ORDERED: Thiamine Inj 100 MG in Sodium Chlor 0.9% Inj 100 ML IV.SIG ONE (03:00)
[2018-03-22] MEDS ORDERED: Morphine Inj 4 MG/ML Vial IV.PUSH ONE (03:01)
--- NOTE | 2018-03-22 03:16 | ED ---
HPI General Chief complaint: Nausea/Vomiting/Diarrhea Stated complaint: Vomitting Time Seen by Provider: 03/22/18 02:02 Source: patient Mode of arrival: ambulatory Limitations: no limitations History of Present Illness HPI narrative: 58-year-old female came to the emergency room with history of abdominal pain, nausea, vomiting and diarrhea that all started since yesterday morning. Patient says that she must have had more than 15 episodes of vomiting in more than 6-7 episodes of diarrhea. They are all watery with no blood in the stool or vomit. Patient was diagnosed with C. difficile colitis in December. She has not had any recent antibiotic intake or any hospitalizations recently. She appeared anxious and shaky. Upon asking she said she has history of alcohol intake but does it occasionally. Patient was tachycardic upon arrival. She points the pain in the generalized abdominal area. No aggravating or relieving factors identified. Related Data Home Medications Medication Instructions Recorded Confirmed anastrozole 1 mg PO DAILY 01/05/18 03/22/18 escitalopram oxalate 20 mg PO DAILY 01/05/18 03/22/18 gabapentin 300 mg PO HS 01/05/18 03/22/18 Previous Rx's Medication Instructions Recorded ondansetron [Zofran ODT] 4 mg PO Q6-8H PRN #20 tab 01/05/18 Allergies Allergy/AdvReac Type Severity Reaction Status Date / Time codeine Allergy Intermediate Itching Verified 03/22/18 01:38 erythromycin base Allergy Intermediate Itching Verified 03/22/18 01:38 penicillin G Allergy Intermediate HIVES Verified 03/22/18 01:38 epinephrine Allergy Mild Seizures Verified 03/22/18 01:38 Review of Systems ROS: all other systems reviewed are negative [facility] Medical History Medical History Breast cancer (Acute) Depression (Acute) History of hysterectomy (Acute) Hx of radiation therapy (Acute) Normal colonoscopy (Acute) Recurrent UTI (Acute) Surgical History Surgical History H/O lumpectomy (Acute) Social History Social History Substance History: No History of Abuse Second Hand Smoke Exposure: No Smoking Status: Never smoker How Often Do You Have a Drink Containing Alcohol: Never Recent Travel in [facility] within the Last 8 Weeks: No Recent Out of Country Travel within the Last 8 Weeks: No Immunization History Tetanus Immunization: >5 Years Exam Narrative Exam Narrative: GENERAL: Awake, alert, anxious, moderate distress, emaciated SKIN: Focused skin assessment warm/dry. HEAD: Atraumatic. Normocephalic. EYES: Pupils equal and round. No scleral icterus. No injection or drainage. ENT: No nasal bleeding or discharge. Mucous membranes pink and moist. Atrophic glossitis NECK: Trachea midline. No JVD. CARDIOVASCULAR: Regular rate and rhythm. No murmur appreciated. RESPIRATORY: No accessory muscle use. Clear to auscultation. Breath sounds equal bilaterally. GASTROINTESTINAL: Abdomen soft, non-tender, nondistended. Hepatic and splenic margins not palpable. MUSCULOSKELETAL: No obvious deformities. No clubbing. No cyanosis. No edema. NEUROLOGICAL: Awake and alert. No obvious cranial nerve deficits. Motor grossly within normal limits. Normal speech. PSYCHIATRIC: Appropriate mood and affect; insight and judgment normal. Course Initial Documented Vital Signs Temperature 99.3 F 03/22/18 01:40 Pulse Rate 108 H 03/22/18 01:40 Respiratory Rate 22 03/22/18 01:40 Blood Pressure 140/88 03/22/18 01:40 Pulse Oximetry 100 03/22/18 01:40 Last Documented Vital Signs Temperature 99.0 F 03/24/18 11:26 Pulse Rate 89 03/24/18 12:00 Respiratory Rate 19 03/24/18 11:26 Blood Pressure 114/77 03/24/18 11:26 Pulse Oximetry 94 L 03/24/18 11:26 Medical Decision Making [facility] Narrative Medical decision making narrative: 3:15 AM blood test results are back and lipase is significantly elevated. Magnesium is significantly low. I have given her IV fluid bolus as well as magnesium IV replacement. I have ordered pain medication. Awaiting for stool for C. difficile. Patient will need to be admitted. Awaiting for the hospitalist to call back for admission. Medical Screen Exam Complete: Yes Emergency Medical Condition: Yes Lab Data Result diagrams: 03/22/18 02:10 03/23/18 05:30 Lab Results 03/22/18 03/22/18 03/22/18 Range/Units 02:10 02:10 08:55 WBC 11.9 H (4.0-11.0) th/mm3 RBC 3.62 L (4.00-5.30) mil/mm3 Hgb 12.5 (11.6-15.3) gm/dL Hct 36.1 (35.0-46.0) % MCV 99.5 (80.0-100.0) fL MCH 34.4 H (27.0-34.0) pg MCHC 34.6 (32.0-36.0) % RDW 16.2 (11.6-17.2) % Plt Count 198 (150-450) th/mm3 MPV 8.7 (7.0-11.0) fL Neut % (Auto) 80.6 H (16.0-70.0) % Lymph % (Auto) 4.8 L (9.0-44.0) % [place] % (Auto) 13.8 H (0.0-8.0) % Eos % (Auto) 0.0 (0.0-4.0) % Baso % (Auto) 0.8 (0.0-2.0) % Neut # (Auto) 9.5 H (1.8-7.7) th/mm3 Lymph # (Auto) 0.6 L (1.0-4.8) th/mm3 [place] # (Auto) 1.6 H (0.0-0.9) th/mm3 Eos # (Auto) 0.0 (0.0-0.4) th/mm3 Baso # (Auto) 0.1 (0.0-0.2) th/mm3 WBC Differential . Differential Comment Auto diff final Sodium 131 L 133 L (136-145) meq/L Potassium 3.5 3.2 L (3.5-5.1) meq/L Chloride 86 L 92 L (98-107) meq/L Carbon Dioxide 22.9 24.3 (21.0-32.0) meq/L Anion Gap 22 H 17 H (5-15) meq/L BUN 19 H 15 (7-18) mg/dL Creatinine 1.77 H 1.22 H (0.50-1.00) mg/dL Estimated GFR 46 L (>89) mL/min Random Glucose 181 H 136 H (74-106) mg/dL Calcium 8.8 8.5 (8.5-10.1) mg/dL Magnesium 0.9 L 2.3 D (1.5-2.5) mg/dL Total Bilirubin 2.6 H 1.4 H (0.2-1.0) mg/dL Direct Bilirubin (0.0-0.2) mg/dL Indirect Bilirubin (0.0-0.8) mg/dL AST 45 H 44 H (15-37) U/L ALT 22 20 (10-53) U/L Alkaline Phosphatase 116 103 (45-117) U/L Total Protein 8.4 H 7.5 D (6.4-8.2) g/dL Albumin 4.5 4.0 (3.4-5.0) g/dL Lipase 4490 H (73-393) U/L Stool C.difficile Ag (Negative) Stool C.difficile Toxin (Negative) Stl C.difficile DNA Amp (Negative) St C. diff Tox Epid 027 (Negative) Serum Alcohol Less than 3 (0-5) mg/dL 03/22/18 03/23/18 03/24/18 Range/Units 18:00 05:30 03:50 WBC (4.0-11.0) th/mm3 RBC (4.00-5.30) mil/mm3 Hgb (11.6-15.3) gm/dL Hct (35.0-46.0) % MCV (80.0-100.0) fL MCH (27.0-34.0) pg MCHC (32.0-36.0) % RDW (11.6-17.2) % Plt Count (150-450) th/mm3 MPV (7.0-11.0) fL Neut % (Auto) (16.0-70.0) % Lymph % (Auto) (9.0-44.0) % [place] % (Auto) (0.0-8.0) % Eos % (Auto) (0.0-4.0) % Baso % (Auto) (0.0-2.0) % Neut # (Auto) (1.8-7.7) th/mm3 Lymph # (Auto) (1.0-4.8) th/mm3 [place] # (Auto) (0.0-0.9) th/mm3 Eos # (Auto) (0.0-0.4) th/mm3 Baso # (Auto) (0.0-0.2) th/mm3 WBC Differential Differential Comment Sodium 139 (136-145) meq/L Potassium 3.2 L (3.5-5.1) meq/L Chloride 102 D (98-107) meq/L Carbon Dioxide 26.8 (21.0-32.0) meq/L Anion Gap 10 (5-15) meq/L BUN 7 (7-18) mg/dL Creatinine 0.70 (0.50-1.00) mg/dL Estimated GFR 87 L (>89) mL/min Random Glucose 77 (74-106) mg/dL Calcium 8.0 L (8.5-10.1) mg/dL Magnesium (1.5-2.5) mg/dL Total Bilirubin 1.0 (0.2-1.0) mg/dL Direct Bilirubin 0.3 H (0.0-0.2) mg/dL Indirect Bilirubin 0.7 (0.0-0.8) mg/dL AST 34 (15-37) U/L ALT 16 (10-53) U/L Alkaline Phosphatase 76 (45-117) U/L Total Protein 5.9 L D (6.4-8.2) g/dL Albumin 3.0 L D (3.4-5.0) g/dL Lipase 514 H 327 (73-393) U/L Stool C.difficile Ag Positive H (Negative) Stool C.difficile Toxin Negative (Negative) Stl C.difficile DNA Amp Positive H (Negative) St C. diff Tox Epid 027 Negative (Negative) Serum Alcohol (0-5) mg/dL Imaging Data Radiologist's impression: Liver Ultrasound 03/22/18 00:00 CONCLUSION: 1. Prominence of the main pancreatic duct which measures 3 mm. No focal pancreatic mass is identified. If there is clinical concern for acute pancreatitis, CT of the abdomen with contrast would be more sensitive in this patient. Correlation with amylase and lipase values is also suggested. 2. Common bile duct is prominent in size raising possibility of distal common bile duct obstruction. Correlation with alkaline phosphatase and bilirubin levels is suggested. 3. Fatty liver. Discharge Plan Discharge Disposition Patient Disposition: ED Admit(ED Internal Use Only) Discharge Condition Condition: Stable Discharge Order Discharge Orders: Discharge Order (Routine); Ordered 03/24/18 Ordered By: Oscar Dyson ED Use Only Admit Order (Routine); Ordered 03/22/18 Ordered By: Omaira Kinney Discharge Details Anticipated Discharge Date: 03/24/18 Physicians Team ED Provider: Omaira Kinney Primary Care Provider: Ivana Paul Attending Provider: Oscar Dyson Status ED Status: Left Department Discharge Information Discharge Date/Time: 03/22/18 05:49
[2018-03-22] MEDS: Mag Sulf 1 gm/100 ml Premix 100 ML IV.SIG SCH ×3 (03:59→07:11)
[2018-03-22] MEDS ORDERED: Sod Chloride 0.9% Inj 1,000 ML IV.CONT SCH (04:00)
[2018-03-22] MEDS: Morphine Inj 4 MG/ML Vial IV.PUSH PRN (07:21)
[2018-03-22 09:56] LABS: Anion Gap 17 meq/L (5-15); Aspartate Aminotransferase 44 U/L (15-37); Blood Urea Nitrogen 15 mg/dL (7-18); Calcium 8.5 mg/dL (8.5-10.1); Carbon Dioxide 24.3 meq/L (21.0-32.0); Chloride 92 meq/L (98-107); Glomerular Filtration Rate 46 mL/min (>89); Glucose,Random 136 mg/dL (74-106); Magnesium 2.3 mg/dL (1.5-2.5); Potassium 3.2 meq/L (3.5-5.1); Sodium 133 meq/L (136-145)
[2018-03-22 09:58] LABS: Alanine Aminotransferase 20 U/L (10-53)
[2018-03-22 10:00] LABS: Alkaline Phosphatase 103 U/L (45-117); Total Protein 7.5 g/dL (6.4-8.2)
--- NOTE | 2018-03-22 10:15 | P.HPIM ---
History of Present Illness Primary Care Physician: Ivana Paul MD History of Present Illness: This is a pleasant 58 y/o F with h/o ETOH abuse, anxiety, endometriosis, and R breast CA who follows with Dr. Noy Garrett for stage I ER-positive right breast cancer status post surgery with low Oncotype DX. She had radiation currently taking Arimidex. Patient was admitted here in December for c diff colitis. She was discharged on both vanco and flagyl. Last night pt developed sudden epigastric pain radiating though to her back. She had alot of n/v/d but no blood was noted. She reports developing a viral illness with sore throat and nasal congestion. Says she had small glass of etoh on 03/19 but "stopped" drinking daily etoh over past few months. denies any new medication changes. Report cholescystectomy in past. In ED found to have acute pancreatitis. Past Medical History - Anxiety - endometriosis - right breast cancer - abnormal mammogram 11/2015 - right lumpectomy December 2015 - s/p radiation therapy - etoh abuse - c. diff colitis. Past Surgical History Hysterectomy(complete) Tonsillectomy Right breast lumpectomy in 2015 Bilateral breast biopsy in 2015 cholecystectomy Colonoscopy in 2007 Family History reviewed and Non-contributory Social History ETOH last admission 01/11 she reported 1 glass of wine per day per patient, per 2-3 glasses of wine per day now pt claims she is not using regular etoh but 2 days before onset of sx's took a "small glass of seagrams." Denies tobacco use per day Diagnosis (1) Acute pancreatitis: (2) DANIELLE (acute kidney injury): (3) Breast CA: Medications and Allergies Allergies Allergy/AdvReac Type Severity Reaction Status Date / Time codeine Allergy Intermediate Itching Verified 03/22/18 01:38 erythromycin base Allergy Intermediate Itching Verified 03/22/18 01:38 penicillin G Allergy Intermediate HIVES Verified 03/22/18 01:38 epinephrine Allergy Mild Seizures Verified 03/22/18 01:38 Home Medications Medication Instructions Recorded Confirmed Type anastrozole 1 mg PO DAILY 01/05/18 03/22/18 History escitalopram oxalate 20 mg PO DAILY 01/05/18 03/22/18 History gabapentin 300 mg PO HS 01/05/18 03/22/18 History Active Medications: Active Medications Sodium Chloride (Ns Inj) 1,000 mls @ 125 mls/hr IV.CONT .Q8H CHINMAY Last Admin: 03/22/18 06:37 Dose: 125 mls/hr Morphine Sulfate (Morphine Inj) 4 mg IV.PUSH Q3H PRN PRN Reason: pain level 3-10 Last Admin: 03/22/18 07:21 Dose: 4 mg Ondansetron HCl (Zofran Inj) 4 mg IV.PUSH Q6H PRN PRN Reason: NAUSEA OR VOMITING Last Admin: 03/22/18 09:59 Dose: 4 mg Sodium Chloride (Ns Flush) 2 ml IV.FLUSH BID CHINMAY Sodium Chloride (Ns Flush) 2 ml IV.FLUSH PRN PRN PRN Reason: FLUSH AFTER USING IV ACCESS Physical Exam Vital signs: Last Vital Signs Temp 99.1 F 03/22/18 04:00 Pulse 104 H 03/22/18 04:00 Resp 18 03/22/18 04:00 BP 125/85 03/22/18 04:00 Pulse Ox 100 03/22/18 04:00 Narrative: lying in bed heart reg lung cta abd epigastric tenderness. minimal bs nd/no rebound ext no edema Results Labs CBC & Chem 7: 03/22/18 02:10 03/22/18 08:55 Caprini VTE Risk Assessment Caprini VTE Risk Assessment: Moderate/High Risk (score >= 2) Caprini Risk Assessment Model: Point Value = 1 Point Value = 2 Point Value = 3 Point Value = 5 Age 41-60 Minor surgery BMI > 25 kg/m2 Swollen legs Varicose veins or History of unexplained or recurrent spontaneous Oral contraceptives or hormone replacement Sepsis (< 1 month) Serious lung disease, including pneumonia (< 1 month) Abnormal pulmonary function Acute myocardial infarction Congestive heart failure (< 1 month) History of inflammatory bowel disease Medical patient at bed rest Age 61-74 Arthroscopic surgery Major open surgery (> 45 min) Laparoscopic surgery (> 45 min) Malignancy Confined to bed (> 72 hours) Immobilizing plaster cast Central venous access Age >= 75 History of VTE Family history of VTE Factor V Leiden Prothrombin [id number] Lupus anticoagulant Anticardiolipin antibodies Elevated serum homocysteine Heparin-induced thrombocytopenia Other congenital or acquired thrombophilia Stroke (< 1 month) Elective arthroplasty Hip, pelvis, or leg fracture Acute spinal cord injury (< 1 month) Prophylaxis Regimen: Total Risk Factor Score Risk Level Prophylaxis Regimen 0-1 Low Early ambulation 2 Moderate Order ONE of the following: *Sequential Compression Device (SCD) *Heparin 5000 units SQ BID 3-4 Higher Order ONE of the following medications: *Heparin 5000 units SQ TID *Enoxaparin/Lovenox 40 mg SQ daily (WT < 150 kg, CrCl > 30 mL/min) *Enoxaparin/Lovenox 30 mg SQ daily (WT < 150 kg, CrCl > 10-29 mL/min) *Enoxaparin/Lovenox 30 mg SQ BID (WT < 150 kg, CrCl > 30 mL/min) AND/OR *Sequential Compression Device (SCD) 5 or more Highest Order ONE of the following medications: *Heparin 5000 units SQ TID (Preferred with Epidurals) *Enoxaparin/Lovenox 40 mg SQ daily (WT < 150 kg, CrCl > 30 mL/min) *Enoxaparin/Lovenox 30 mg SQ daily (WT < 150 kg, CrCl > 10-29 mL/min) *Enoxaparin/Lovenox 30 mg SQ BID (WT < 150 kg, CrCl > 30 mL/min) AND *Sequential Compression Device (SCD) Assessment and Plan Assessment (1) Acute pancreatitis: Code(s): K85.90 - Acute pancreatitis without necrosis or infection, unspecified Status: Acute (2) DANIELLE (acute kidney injury): Code(s): N17.9 - Acute kidney failure, unspecified Status: Acute (3) Breast CA: Code(s): C50.919 - Malignant neoplasm of unspecified site of unspecified female breast Status: Resolved Plan 1. Acute pancreatitis pt currently with viral illness. denies any new medication. s/p lap cheng. etoh use 2 days prior to sx's. 2. danielle/dehydration 3. hx breast ca 4. anxiety cont aggressive ivf hydration npo pain control dvt prophylaxis recheck bmp/lipase
--- NOTE | 2018-03-22 11:25 | US ---
EXAM DATE: 03/22/2018 11:19 AM EST AGE/SEX: 58 years / Female INDICATIONS: Pancreatitis. Evaluate the CBD. CLINICAL DATA: This is the patient's initial encounter. Patient reports that signs and symptoms have been present for 1 day and indicates a pain score of 4/10. MEDICAL/SURGICAL HISTORY: Carcinoma, breast. C. Diff colitis. Endometriosis. ETOH abuse. Hys terectomy. Tonsillectomy. Cholecystectomy. Right breast lumpectomy. Bilateral breast biopsy. Col onoscopy in 2007. COMPARISON: [facility], CT ABDOMEN & PELVIS W CONTRAST, 01/05/2018. . MEASUREMENTS: Liver:__ 13.5 cm. Common Bile Duct:__ 11mm. Right Kidney:__ 9.7 x 4.4 x 4.8 cm. FINDINGS: Liver: Increased echogenicity without focal lesion or ductal dilatation. Portal Vein: Hepatopedal flow seen in portal vein. Common Duct: The common bile duct is prominent in size raising possibility of distal common bile duct obstruction. Correlation with alkaline phosphatase and bilirubin levels is suggested. Gallbladder: Surgically absent. Pancreas: There is prominence of the main pancreatic duct which measures 3 mm. No focal pancreatic ma ss is identified. If there is clinical concern for acute pancreatitis, CT of the abdomen with contras t would be more sensitive in this patient. Correlation with amylase and lipase values is also suggest ed. Right Kidney: Normal echogenicity and cortical thickness. No mass or hydronephrosis. Other: None. CONCLUSION: 1. Prominence of the main pancreatic duct which measures 3 mm. No focal pancreatic mass is identifie d. If there is clinical concern for acute pancreatitis, CT of the abdomen with contrast would be more sensitive in this patient. Correlation with amylase and lipase values is also suggested. 2. Common bile duct is prominent in size raising possibility of distal common bile duct obstruction. Correlation with alkaline phosphatase and bilirubin levels is suggested. 3. Fatty liver. Electronically signed by: Luca Vanegas MD Board Certified Radiologist 03/22/2018 11:24 AM EST
[2018-03-22] MEDS ORDERED: Haloperidol Inj 5 MG/ML Ampul IV.PUSH PRN (13:32)
[2018-03-22] MEDS: Anastrozole 1 MG Tablet PO SCH (13:47)
[2018-03-22] MEDS: Gabapentin 300 MG Capsule PO SCH (21:01)
[2018-03-22] MEDS: LORazepam 1 MG Tablet PO PRN (23:47)
[2018-03-23 06:32] LABS: Carbon Dioxide 26.8 meq/L (21.0-32.0); Potassium 3.2 meq/L (3.5-5.1); Total Protein 5.9 g/dL (6.4-8.2)
--- NOTE | 2018-03-23 09:21 | P.PNIM ---
Subjective Interval history: had some abd pain with clears yesterday.improved Physical Exam Vital signs: Last Vital Signs Temp 99.5 F 03/23/18 07:55 Pulse 92 H 03/23/18 07:55 Resp 18 03/23/18 07:55 BP 133/83 03/23/18 07:55 Pulse Ox 97 03/23/18 07:55 Narrative: lying in bed heart reg lung cta abd epigastric tenderness better. minimal bs nd/no rebound ext no edema Results Labs CBC & Chem 7: 03/22/18 02:10 03/23/18 05:30 Assessment and Plan Assessment (1) Acute pancreatitis: Code(s): K85.90 - Acute pancreatitis without necrosis or infection, unspecified Status: Acute (2) DANIELLE (acute kidney injury): Code(s): N17.9 - Acute kidney failure, unspecified Status: Acute (3) Breast CA: Code(s): C50.919 - Malignant neoplasm of unspecified site of unspecified female breast Status: Resolved Plan 1. Acute pancreatitis pt currently with viral illness. denies any new medication. s/p lap cheng. dilated cbd with nml lft. admits to heavy etoh use and "a very good time" around [place]" with heavy etoh intake. 2. danielle/dehydration 3. hx breast ca 4. anxiety cont ivf kcl am lipase ambulate advance to full liquid as tolerated ciwa if improving then plan for dc home in AM
[2018-03-23] MEDS: Potassium Chloride 10 MEQ ER Capsule PO ONE ×2 (09:55→17:29)
[2018-03-23] MEDS: LORazepam 1 MG Tablet PO PRN (09:56)
[2018-03-23] MEDS: Anastrozole 1 MG Tablet PO SCH (09:56)
[2018-03-23] MEDS: Morphine Inj 4 MG/ML Vial IV.PUSH PRN ×2 (17:38→23:43)
[2018-03-23] MEDS ORDERED: Potassium Chloride 25 MEQ Effervescent Tablet PO ONE (19:00)
[2018-03-23] MEDS: Gabapentin 300 MG Capsule PO SCH (21:13)
--- NOTE | 2018-03-24 09:04 | P.PNIM ---
Subjective Interval history: had a loose stool yesterday some abdomen cramps tdday. ambulating Physical Exam Vital signs: Last Vital Signs Temp 98.8 F 03/24/18 04:00 Pulse 91 H 03/24/18 04:00 Resp 18 03/24/18 04:00 BP 136/81 03/24/18 04:00 Pulse Ox 93 L 03/24/18 04:00 Narrative: lying in bed heart reg lung cta abd epigastric tenderness better. minimal bs nd/no rebound ext no edema Results Labs CBC & Chem 7: 03/22/18 02:10 03/23/18 05:30 Assessment and Plan Assessment (1) Acute pancreatitis: Code(s): K85.90 - Acute pancreatitis without necrosis or infection, unspecified Status: Acute (2) DANIELLE (acute kidney injury): Code(s): N17.9 - Acute kidney failure, unspecified Status: Acute (3) Breast CA: Code(s): C50.919 - Malignant neoplasm of unspecified site of unspecified female breast Status: Resolved Plan 1. Acute pancreatitis pt currently with viral illness. denies any new medication. s/p lap cheng. dilated cbd with nml lft. admits to heavy etoh use and "a very good time" around [place]" with heavy etoh intake. 2. danielle/dehydration 3. hx breast ca 4. anxiety full liquids f/u cdiff testing result sent last night. might not represent an active infection hopefully dc home later today. BASED ON HOSPITAL CDIFF TEST INTERPRETATION CHART...THE RESULTS WOULD BE NEGATIVE. PT HAS HAD NO ABX. DIARRHEA COULD BE RELATED TO HER PANCREATITIS. STILL ON LIQUID DIET. SHE IS EAGER FOR DC IS . THEY ARE INSTUCTED TO CALL PCP IF DIARRHEA NOT IMPROVING OR WORSENS.
[2018-03-24] MEDS: Morphine Inj 4 MG/ML Vial IV.PUSH PRN (09:44)
[2018-03-24] MEDS: Anastrozole 1 MG Tablet PO SCH (09:44)
[2018-03-24 11:26] VITALS: BP 114/77; RESP 19; TEMP 99; O2SAT 94
[2018-03-24 13:05] VITALS: PULSE 89
--- NOTE | 2018-03-29 16:15 | P.DS ---
DS: Providers Date of admission: 03/23/18 11:47 Primary care physician: Ivana Paul MD Brief History from admission: This is a pleasant 58 y/o F with h/o ETOH abuse, anxiety, endometriosis, and R breast CA who follows with Dr. Noy Garrett for stage I ER-positive right breast cancer status post surgery with low Oncotype DX. She had radiation currently taking Arimidex. Patient was admitted here in December for c diff colitis. She was discharged on both vanco and flagyl. Last night pt developed sudden epigastric pain radiating though to her back. She had alot of n/v/d but no blood was noted. She reports developing a viral illness with sore throat and nasal congestion. Says she had small glass of etoh on 03/19 but "stopped" drinking daily etoh over past few months. denies any new medication changes. Report cholescystectomy in past. In ED found to have acute pancreatitis. Past Medical History - Anxiety - endometriosis - right breast cancer - abnormal mammogram 11/2015 - right lumpectomy December 2015 - s/p radiation therapy - etoh abuse - c. diff colitis. Past Surgical History Hysterectomy(complete) Tonsillectomy Right breast lumpectomy in 2015 Bilateral breast biopsy in 2015 cholecystectomy Colonoscopy in 2007 Family History reviewed and Non-contributory Social History ETOH last admission 01/11 she reported 1 glass of wine per day per patient, per 2-3 glasses of wine per day now pt claims she is not using regular etoh but 2 days before onset of sx's took a "small glass of seagrams." Denies tobacco use per day DS: Diagnosis Discharge Diagnosis (1) Acute pancreatitis: Status: Acute (2) DANIELLE (acute kidney injury): Status: Acute (3) Breast CA: Status: Resolved DS: Summary Assessment and Plan Assessment (1) Acute pancreatitis: Code(s): K85.90 - Acute pancreatitis without necrosis or infection, unspecified Status: Acute (2) DANIELLE (acute kidney injury): Code(s): N17.9 - Acute kidney failure, unspecified Status: Acute (3) Breast CA: Code(s): C50.919 - Malignant neoplasm of unspecified site of unspecified female breast Status: Resolved Plan 1. Acute pancreatitis pt currently with viral illness. denies any new medication. s/p lap cheng. dilated cbd with nml lft. admits to heavy etoh use and "a very good time" around [place]" with heavy etoh intake. 2. danielle/dehydration 3. hx breast ca 4. anxiety full liquids f/u cdiff testing result sent last night. might not represent an active infection hopefully dc home later today. BASED ON HOSPITAL CDIFF TEST INTERPRETATION CHART...THE RESULTS WOULD BE NEGATIVE. PT HAS HAD NO ABX. DIARRHEA COULD BE RELATED TO HER PANCREATITIS. STILL ON LIQUID DIET. SHE IS EAGER FOR DC IS . THEY ARE INSTUCTED TO CALL PCP IF DIARRHEA NOT IMPROVING OR WORSENS. Time Spent with Patient Total time spent providing and/or coordinating discharge services: Results Impressions ITS Impressions Liver Ultrasound 03/22/18 00:00 CONCLUSION: 1. Prominence of the main pancreatic duct which measures 3 mm. No focal pancreatic mass is identified. If there is clinical concern for acute pancreatitis, CT of the abdomen with contrast would be more sensitive in this patient. Correlation with amylase and lipase values is also suggested. 2. Common bile duct is prominent in size raising possibility of distal common bile duct obstruction. Correlation with alkaline phosphatase and bilirubin levels is suggested. 3. Fatty liver. Discharge Plan Discharge Disposition Patient Disposition: Discharge Home Discharge Condition Condition: Stable Discharge Order Discharge Orders: Discharge Order (Routine); Ordered 03/24/18 Ordered By: Oscar Dyson Discharge Details Anticipated Discharge Date: 03/24/18 Physicians Team Primary Care Provider: Ivana Paul Attending Provider: Oscar Dyson Rxs /Orders / Referrals /Forms Prescriptions: Continue anastrozole 1 mg Tablet 1 mg PO DAILY RF: 0 gabapentin 300 mg Capsule 300 mg PO HS RF: 0 escitalopram oxalate 20 mg Tablet 20 mg PO DAILY RF: 0 ondansetron [Zofran ODT] 4 mg tablet,disintegrating 4 mg PO Q6-8H PRN (Reason: nausea and vomiting) Qty: 20 RF: 0 Referrals: Ivana Paul MD [Primary Care Provider] - See Instructions (1 week ) Discharge Instructions Patient Printed Instructions: Pancreatitis (DC), C Diff (Clostridium Difficile ) Infection (DC) Additional Instructions: Your Health Problems: Goals to Promote Your Health: * To prevent worsening of your condition * To maintain your health at the optimal level Directions to Meet Your Goals: * Take your medications as prescribed * Follow your dietary instruction * Follow activity as directed * Keep your appointments as scheduled * Take your immunizations and boosters as scheduled * If your symptoms worsen call your PCP * If no PCP go to Urgent Care or Emergency Room Smoking is dangerous to your health. Avoid second hand smoke. You may reach the 24-hour crisis hotline for domestic abuse at 6-022-767- 3865.Your Health Problems: Goals to Promote Your Health: * To prevent worsening of your condition * To maintain your health at the optimal level Directions to Meet Your Goals: * Take your medications as prescribed * Follow your dietary instruction * Follow activity as directed * Keep your appointments as scheduled * Take your immunizations and boosters as scheduled * If your symptoms worsen call your PCP * If no PCP go to Urgent Care or Emergency Room Smoking is dangerous to your health. Avoid second hand smoke. You may reach the 24-hour crisis hotline for domestic abuse at . Status ED Status: Left Department Discharge Information Discharge Date/Time: 03/24/18 14:01
== END 2018-03-24 14:01 | disposition home or self-care (01) | DRG 439 ==
LOC: NEPC 01:31 → NEDA 03:45 → INTOOBSV 03:45 → HCIN 05:48
PROVIDERS: ADMIT Hospitalist; ATTEND Hospitalist
DX: R00.0 Tachycardia, unspecified; Z88.5 Allergy status to narcotic agent; Z79.811 Long term (current) use of aromatase inhibitors; F32.9 Major depressive disorder, single episode, unspecified; Z88.0 Allergy status to penicillin; Z92.3 Personal history of irradiation; Z85.3 Personal history of malignant neoplasm of breast; E86.0 Dehydration; Z68.1 Body mass index [BMI] 19.9 or less, adult; K14.4 Atrophy of tongue papillae; R64 Cachexia; N17.9 Acute kidney failure, unspecified; F41.9 Anxiety disorder, unspecified; K85.90 Acute pancreatitis without necrosis or infection, unspecified; F10.10 Alcohol abuse, uncomplicated
CPT/HCPCS: 76705; 80048; 80053; 80076; 80307; 83690; 83735; 85025; 87324; 87449; 87493; 90775; 96365; 96366; 96368; 96375; 99285; G0378; J2270; J2405; J3411; J3475; J3480; J7030